=== PATIENT | female | born 1955 | race Caucasian/White ===

== ENCOUNTER → 2017-11-28 12:27 | Outpatient (CLI) | payer OTHER, SELFPAY ==
--- NOTE | 2017-11-28 12:32 | US_ITS ---
STUDY: THYROID ULTRASOUND REASON FOR EXAM: Female, 62 years old. Hyperthyroidism.. TECHNIQUE: Ultrasound evaluation of the thyroid was performed with real-time and static quiroga-scale imaging. COMPARISON: None. FINDINGS: RIGHT LOBE: Markedly abnormal right thyroid lobe. It measures 5.5 x 2.5 x 3.0 cm. It is heterogeneous. It appears to have a large calcified mass with prominent posterior shadowing. The mass itself measures approximately 4.4 x 3.4 x 2.9 cm. LEFT LOBE: The left lobe of the thyroid gland measures 3.4 x 1.1 x 1.1 cm. There is a homogeneous echotexture. There is a 4 mm lower pole cyst. ISTHMUS: The isthmus measures 5 mm . The regional lymph nodes are normal. US/Thyroid IMPRESSION: Large 4.4 cm calcified mass replacing most of the right thyroid lobe. Biopsy suggested. Electronically Signed: Mich Aj MD at 15:18 EDT , Service support ,
== END ==
DX: E03.9 Hypothyroidism, unspecified (principal)
CPT/HCPCS: 76536

== ENCOUNTER → 2017-12-16 13:24 | Outpatient (CLI) | payer OTHER, SELFPAY ==
--- NOTE | 2017-12-16 13:26 | BI_ITS ---
MAMMOGRAPHY - BILATERAL SCREENING REASON FOR EXAM: Female, 62 years old. Routine annual screening examination. PERTINENT HISTORY: Non-contributory. TECHNIQUE: Digital bilateral breast marvel (3D mammographic acquisition) in the CC and MLO projections. 2-D mediolateral oblique (MLO) and craniocaudad (CC) views of both breasts were obtained. CAD: Full Field Digital Mammography with Computer Added Detection was performed. COMPARISON: Comparison is made with prior study dated May 20, 2014 and May 15, 2013. FINDINGS: Breast Composition: There are scattered areas of fibroglandular density. There are no dominant masses or suspicious calcifications. No other significant abnormalities are identified. There has been no significant change since the prior study. BI/SCREENING MAMM (CAD), BILAT IMPRESSION: Stable bilateral screening mammogram. Yearly follow-up mammogram recommended. (A) ASSESSMENT CATEGORY: BIRADS Category 1: Negative. A letter regarding these results will be sent to the patient by the facility within 30 days. Approximately 10% of breast cancers are not detected by mammography. A normal mammogram should not delay biopsy of a clinically suspicious abnormality. [id number] Electronically Signed: Amol Connell MD at 12:58 EDT Tel [phone], Service support ,
== END ==
DX: Z12.31 Encounter for screening mammogram for malignant neoplasm of breast (principal)
CPT/HCPCS: 77063; 77067

== ENCOUNTER → 2019-10-19 09:43 | Outpatient (CLI) | payer OTHER, SELFPAY ==
[2019-10-19 10:38] LABS: Absolute Lymphocyte Count 2.62 X10^3/uL (0.83-4.51); Absolute Neutrophil Count 2.4 X10^3/uL (2.0-7.7); Basophil# 0.04 X10^3/uL; Basophil% 0.7 % (0-1); Eosinophil# 0.15 X10^3/uL; Eosinophils% 2.7 % (0-5); Hematocrit 38.8 % (37-47); Lymphocyte # 2.62 X10^3/ul (4.0); Lymphocyte % 46.5 % (19-41); Mean Corp Hgb Conc 33.5 g/dL (32-36); Mean Corpuscular Hgb 29.5 pg (27.0-32.0); Mean Corpuscular Volume 88.2 fL (81-99); Mean Platelet Vol. 9.6 fl (6.2-12.0); Monocyte# 0.38 X10^3/uL; Monocyte% 6.7 % (0-10); NRBC Flagged by Analyzer 0 % (0-5); Neutrophil # 2.38 X10^3/uL (2.7-7.7); Neutrophil % 42.3 % (47-70); Platelet Count 280 K/mm3 (150-450); RBC Distribution Width CV 12.7 % (11.6-14.6); RBC Distribution Width SD 41.1 fl (35.1-43.9); White Blood Count 5.6 K/mm3 (4.4-11.0)
[2019-10-19 11:12] LABS: AST(SGOT) 60 U/L (15-37); Alanine Aminotransfer ALT/SGPT 89 U/L (13-56); Albumin, Serum 3.7 g/dL (3.2-5.0); Alkaline Phosphatase 69 U/L (45-117); Anion Gap 3 (5-15); BUN 13 mg/dL (7-18); BUN/Creat Ratio 17.8 RATIO (10-20); Calcium,Total 9.4 mg/dL (8.5-10.1); Chloride 106 mmol/L (98-107); Cholesterol 183 mg/dL (200); Creatinine, Serum 0.73 mg/dL (0.55-1.02); EST Glomerular Filtration Rate 86 mL/min (>60); Est Glom Filt Rate - Afr Amer 104 mL/min (>60); Globulin 3.7 g/dL (2.2-4.2); Glucose 156 mg/dL (74-106); Hemoglobin A1c 9.2 % (3.8-5.6); High Density Lipoprotein 42 mg/dL; Protein, Total 7.4 g/dL (6.4-8.2); Sodium Level 139 mmol/L (136-145); T4 Free Direct 1.02 ng/dL (0.76-1.46); Thyroid Stim Hormone (TSH) 4.72 uIU/mL (0.358-3.74); Triglycerides 129 mg/dL; Very Low Density Lipoprotein 26 mg/dL (5-40); Vitamin D,25 Hydroxy 38.2 ng/mL
== END ==
DX: E11.65 Type 2 diabetes mellitus with hyperglycemia (principal); E78.5 Hyperlipidemia, unspecified; E03.9 Hypothyroidism, unspecified; E55.9 Vitamin D deficiency, unspecified; I10 Essential (primary) hypertension
CPT/HCPCS: 36415; 80053; 80061; 82306; 83036; 84439; 84443; 85025

== ENCOUNTER → 2020-01-08 10:15 | Outpatient (CLI) | payer OTHER, SELFPAY ==
[2020-01-08 10:44] LABS: Absolute Lymphocyte Count 2.32 X10^3/uL (0.83-4.51); Absolute Neutrophil Count 2.4 X10^3/uL (2.0-7.7); Basophil# 0.05 X10^3/uL; Eosinophil# 0.14 X10^3/uL; Eosinophils% 2.7 % (0-5); Hematocrit 38.8 % (37-47); Hemoglobin 13.1 g/dL (12.0-15.0); Lymphocyte # 2.32 X10^3/ul (4.0); Lymphocyte % 44.3 % (19-41); Mean Corp Hgb Conc 33.8 g/dL (32-36); Mean Corpuscular Hgb 29.6 pg (27.0-32.0); Mean Corpuscular Volume 87.8 fL (81-99); Mean Platelet Vol. 9.5 fl (6.2-12.0); Monocyte# 0.31 X10^3/uL; Monocyte% 5.9 % (0-10); NRBC Flagged by Analyzer 0 % (0-5); Neutrophil # 2.39 X10^3/uL (2.7-7.7); Neutrophil % 45.5 % (47-70); Platelet Count 259 K/mm3 (150-450); RBC Distribution Width CV 12.5 % (11.6-14.6); RBC Distribution Width SD 40.1 fl (35.1-43.9); Red Blood Count 4.42 M/mm3 (4.2-5.4); White Blood Count 5.2 K/mm3 (4.4-11.0)
[2020-01-08 11:08] LABS: Hemoglobin A1c 9.2 % (3.8-5.6)
[2020-01-08 11:23] LABS: AST(SGOT) 47 U/L (15-37); Alanine Aminotransfer ALT/SGPT 86 U/L (13-56); Albumin, Serum 3.7 g/dL (3.2-5.0); Alkaline Phosphatase 77 U/L (45-117); Anion Gap 3 (5-15); BUN 15 mg/dL (7-18); BUN/Creat Ratio 23.2 RATIO (10-20); Calcium,Total 9.6 mg/dL (8.5-10.1); Chloride 106 mmol/L (98-107); Cholesterol 165 mg/dL (200); Creatinine, Serum 0.65 mg/dL (0.55-1.02); EST Glomerular Filtration Rate 99 mL/min (>60); Est Glom Filt Rate - Afr Amer 119 mL/min (>60); Globulin 3.8 g/dL (2.2-4.2); Glucose 192 mg/dL (74-106); High Density Lipoprotein 45 mg/dL; Potassium 3.9 mmol/L (3.5-5.1); Protein, Total 7.5 g/dL (6.4-8.2); Sodium Level 140 mmol/L (136-145); T4 Free Direct 1.03 ng/dL (0.76-1.46); Thyroid Stim Hormone (TSH) 2.07 uIU/mL (0.358-3.74); Triglycerides 98 mg/dL; Very Low Density Lipoprotein 20 mg/dL (5-40)
== END ==
PROVIDERS: Family Medicine
DX: E11.65 Type 2 diabetes mellitus with hyperglycemia (principal); E78.5 Hyperlipidemia, unspecified; I10 Essential (primary) hypertension; E04.1 Nontoxic single thyroid nodule; E03.9 Hypothyroidism, unspecified
CPT/HCPCS: 36415; 80053; 80061; 83036; 84439; 84443; 85025

== ENCOUNTER 2020-02-18 14:16 | Inpatient (IN) | payer OTHER, SELFPAY ==
[2020-02-18] VITALS (8 sets, daily range): BP systolic 114–136; BP diastolic 65–78; PULSE 80–103; RESP 18–28; TEMP 36.6–36.7; O2SAT 88–97; BMI 30.3; BMI 27.0; BMI 27.1
--- NOTE | 2020-02-18 14:35 | EKG12_ITS ---
Test Reason : SOB Blood Pressure : / mmHG Vent. Rate : 096 BPM Atrial Rate : 096 BPM P-R Int : 148 ms QRS Dur : 128 ms QT Int : 390 ms P-R-T Axes : 047 017 001 degrees QTc Int : 492 ms Normal sinus rhythm Right bundle branch block Abnormal ECG Confirmed by RICO WARREN, SHIRLEY ([id number]), editor department DILLAN ESQUIVEL ([id number]) on 02/20/2020 10:48:58 AM Referred By: Rambo Holland Confirmed By:SHIRLEY GÓMEZ MD
--- NOTE | 2020-02-18 14:36 | ED.DCSUM_ITS ---
History of Present Illness Chief Complaint: Shortness of Breath Informant: Patient Onset: Days Context: Gradual Onset Timing: Continuous Current Severity: Moderate Maximum Severity: Severe Narrative: Patient is a 64-year-old female with history of smoking, never been diagnosed with COPD or asthma, also with diabetes and hypertension who presents to the emergency department with increasing shortness of breath. Patient states that she was tested for Covid a week ago. She received the results on the and she was positive. She states over the past 24 hours, she has had rather severe shortness of breath. She states she cannot walk any distance without getting acutely dyspneic. She has had fevers and chills. She is had a scant cough. She also admits to pleuritic chest pain. On arrival, the patient was 88% on room air. She was placed on 4 L of oxygen. When she ambulated to the bed, her saturations were in the low 80s and she was acutely dyspneic. Prior similar symptoms: Yes Recent Illness/Hospitalization: No Past Medical History - Allergies and Home Meds Allergies/Adverse Reactions: Allergies No Known Allergies Allergy (Unverified 12/12/17 09:20) [facility] - Prior records reviewed: Yes Past Medical History: - - Diabetes, hypertension Surgical History: noncontributory Lives: Alone Smoking Status: Former smoker Review of Systems General: Reports: Chills. Denies: Fever, Sweats Eyes: Denies: Visual changes - bilaterally, Diplopia ENT: Denies: Rhinorrhea, Sore throat Cardiovascular: Denies: Chest pain, Palpitations Respiratory: Reports: Dyspnea, Cough. Denies: Dyspnea on exertion Gastrointestinal: Denies: Abdominal pain, Nausea, Vomiting, Diarrhea, Melena, Hematochezia Genitourinary: Denies: Dysuria, Hematuria, Frequency Musculoskeletal: Denies: Back pain, Extremity Pain Skin: Denies: Rash, Wounds Neurological: Denies: Headache, Weakness, Numbness Physical Exam Vital Signs/Narrative: Vital Signs Temp Pulse Resp BP Pulse Ox 02/18/20 14:25 93 02/18/20 14:17 98.1 F 102 H 24 H 136/78 H 88 Inital Vital Signs reviewed: Yes General: Well nourished, Well developed, No Acute Distress Head: Normocephalic, Atraumatic Eyes: Perrl, EOMI ENT: Moist mucous membranes, No rhinorrhea Neck: Supple, Nontender Cardiovascular: Regular rate, Regular rhythm, No murmurs Respiratory: No distress, Chest nontender, Wheezing, Diminished Abdomen: Soft, Nontender, Nondistended, Normal bowel sounds Back: Nontender, Normal Inspection Extremities: Nontender, No edema Skin: Normal color, No rash Neurological: Alert, Oriented x3, Cranial nerves II-XII grossly intact, Normal Strength, Normal Sensation Psychological: Normal affect, Normal Mood Diagnostic/Tx/Re-eval Clinical Impression(s) from Imaging Studies Chest CTA 02/18/20 16:12 IMPRESSION: CTA chest examination, without a demonstrated pulmonary embolism or arterial dissection. Bilateral pneumonia. Electronically Signed: Edward Mays MD at 16:50 EST , Service support , Abnormal Lab Results 02/18/20 02/18/20 02/18/20 14:43 14:45 14:45 WBC 6.4 RBC 4.19 L Hgb 13.2 Hct 36.4 L MCV 86.9 MCH 31.5 MCHC 36.3 H RDW Std Deviation 39.4 RDW Coeff of Misty 12.8 Plt Count 317 MPV 9.4 Immature Gran % (Auto) 2.400 H Neut % (Auto) 62.2 Lymph % (Auto) 29.3 Shawnee % (Auto) 5.6 Eos % (Auto) 0.0 Baso % (Auto) 0.5 Absolute Neuts (auto) 4.0 Absolute Lymphs (auto) 1.87 Nucleated RBC % 0 Differential Comment SCANNED D-Dimer Quant (PE/DVT) 1.02 H* Sodium Potassium Chloride Carbon Dioxide Anion Gap BUN Creatinine Estim Creat Clear Calc Est GFR (MDRD) Af Amer Est GFR (MDRD) Non-Af BUN/Creatinine Ratio Glucose Lactic Acid 2.1 H* Calcium Total Bilirubin AST ALT Alkaline Phosphatase B-Natriuretic Peptide Total Protein Albumin Globulin Albumin/Globulin Ratio 02/18/20 02/18/20 14:45 Unknown WBC RBC Hgb Hct MCV MCH MCHC RDW Std Deviation RDW Coeff of Misty Plt Count MPV Immature Gran % (Auto) Neut % (Auto) Lymph % (Auto) Shawnee % (Auto) Eos % (Auto) Baso % (Auto) Absolute Neuts (auto) Absolute Lymphs (auto) Nucleated RBC % Differential Comment D-Dimer Quant (PE/DVT) Sodium 135 L Potassium 3.4 L Chloride 100 Carbon Dioxide 25.0 Anion Gap 10 BUN 14 Creatinine 0.71 Estim Creat Clear Calc 64.98 Est GFR (MDRD) Af Amer 108 Est GFR (MDRD) Non-Af 89 BUN/Creatinine Ratio 19.8 Glucose 206 H Lactic Acid Calcium 9.7 Total Bilirubin 0.60 AST 76 H ALT 64 H Alkaline Phosphatase 95 B-Natriuretic Peptide 7.2 Total Protein 8.0 Albumin 3.0 L Globulin 5.0 H Albumin/Globulin Ratio 0.6 L - Medical Decision Making Patient presents with significant shortness of breath. Even with ambulation, she was persistently hypoxic despite supplemental oxygen. Metabolic work-up was pursued. IV was established. Screening labs relatively unremarkable. She does have mild elevation of her lactic acid, which I feel is likely secondary to global hypoxia. D-dimer was elevated. Because of this, the patient underwent CTA of the chest. It does show findings consistent with Covid pneumonia, but there is no pulmonary embolus. Patient is on 5 L of oxygen. I do feel that she is going to require admission given her significant hypoxia. She is covered with Decadron. The patient will be discussed with the hospitalist. Impression 1. Covid pneumonia 2. Hypoxia requiring supplemental oxygen ED Disposition - Plan for ED Patient: [facility] -
[2020-02-18] MEDS: Acetaminophen 500 MG Tablet 1000 MG PO (15:15)
[2020-02-18 15:17] LABS: Absolute Lymphocyte Count 1.87 X10^3/uL (0.83-4.51); Basophil# 0.03 X10^3/uL; Basophil% 0.5 % (0-1); Hematocrit 36.4 % (37-47); Hemoglobin 13.2 g/dL (12.0-15.0); Lymphocyte # 1.87 X10^3/ul (4.0); Lymphocyte % 29.3 % (19-41); Mean Corp Hgb Conc 36.3 g/dL (32-36); Mean Corpuscular Hgb 31.5 pg (27.0-32.0); Mean Corpuscular Volume 86.9 fL (81-99); Mean Platelet Vol. 9.4 fl (6.2-12.0); Monocyte# 0.36 X10^3/uL; Monocyte% 5.6 % (0-10); NRBC Flagged by Analyzer 0 % (0-5); Neutrophil # 3.97 X10^3/uL (2.7-7.7); Neutrophil % 62.2 % (47-70); POSITIVE MORPHOLOGY YES; Platelet Count 317 K/mm3 (150-450); RBC Distribution Width CV 12.8 % (11.6-14.6); RBC Distribution Width SD 39.4 fl (35.1-43.9); Red Blood Count 4.19 M/mm3 (4.2-5.4); White Blood Count 6.4 K/mm3 (4.4-11.0)
[2020-02-18 15:30] LABS: Differential Indicated SCAN CRITERIA MET
[2020-02-18 15:34] LABS: ALB/GLOB Ratio 0.6 RATIO (0.9-2.4); AST(SGOT) 76 U/L (15-37); Alanine Aminotransfer ALT/SGPT 64 U/L (13-56); Alkaline Phosphatase 95 U/L (45-117); Anion Gap 10 (5-15); BUN 14 mg/dL (7-18); BUN/Creat Ratio 19.8 RATIO (10-20); Calcium,Total 9.7 mg/dL (8.5-10.1); Chloride 100 mmol/L (98-107); Creatinine, Serum 0.71 mg/dL (0.55-1.02); EST Glomerular Filtration Rate 89 mL/min (>60); Est Glom Filt Rate - Afr Amer 108 mL/min (>60); Estimated Creatinine Clearance 64.98 ml/min; Glucose 206 mg/dL (74-106); Potassium 3.4 mmol/L (3.5-5.1); Sodium Level 135 mmol/L (136-145)
[2020-02-18] MEDS: 0.9% Normal Saline 1,000 ML 125 ML IV (15:34)
[2020-02-18] MEDS: dexAMETHasone 4 MG/ML Vial 6 MG IV (15:34)
[2020-02-18 15:40] LABS: Lactic Acid 2.1 mmol/L (0.4-1.9)
[2020-02-18 15:47] LABS: Differential Comment SCANNED
[2020-02-18 15:49] LABS: D-Dimer Quantitative (DVT/PE) 1.02 FEU/ug/m (0.27-0.49)
[2020-02-18 16:03] LABS: BNP,B-Type NATRIURETIC PEPTIDE 7.2 pg/mL (0-100)
--- NOTE | 2020-02-18 16:12 | CT_ITS ---
STUDY: CTA CHEST REASON FOR EXAM: Female, 64 years old. COVID+, SOB, CP W/ COUGHING RADIATION DOSAGE (If Supplied By Facility): CTDIvol = ( 11.25 ) mGy, DLP = ( 393.16 ) mGycm TECHNIQUE: The examination was performed with the intravenous administration of 100mL Isovue-370. Post-processing of the angiographic images was performed, with multiplanar reformation and 3D reconstruction. Individualized dose optimization techniques were used for this CT. COMPARISON: None. FINDINGS: Thyroid gland is enlarged including with calcified nodules on the right. Normal enhancement of the main pulmonary artery and right and left pulmonary arteries. There is limited enhancement of the bilateral peripheral pulmonary arteries. There is no demonstrated pulmonary embolism. Normal thoracic aorta and visualized great vessels. There is no demonstrated aortic dissection. Normal heart and pericardium. Mediastinal lymph nodes measure up to 1.8 cm in the lower paratracheal region. There are calcified left hilar lymph nodes . Normal visualized trachea and bronchi. The lungs are well expanded. There are moderate groundglass and airspace opacities in the lower more than the mid and upper lungs. There is left lower lung granuloma Normal pleura. Normal chest wall structures. Mild degenerative change of the spine. Normal visualized upper abdomen. CT/CTA Chest W/WO Contrast IMPRESSION: CTA chest examination, without a demonstrated pulmonary embolism or arterial dissection. Bilateral pneumonia. Electronically Signed: Edward Mays MD at 16:50 EST , Service support ,
--- NOTE | 2020-02-18 18:29 | HP.PCM_ITS ---
Problem List (1) COVID-19 Status: Acute (2) Acute respiratory failure with hypoxia Status: Acute History of Present Illness Date of Admission: 02/18/20 Chief Complaint: short of breath The patient is a 64 year old F who started becoming ill on February 09. Patient was having shortness of breath and fever and dysgeusia. Patient was seen at an outside emergency room on the and checked for Covid at that time. Patient was told her lungs were clear at that time. Patient was not able to manage at home and presented to the emergency room. Patient was 88% on room air, she was placed on 5 L and her sats have been in the high 90s. In the emergency room, patient had a CAT scan of her chest that did not show any pulmonary embolism but did show bilateral patchy infiltrates throughout both lung larsen. She received albuterol and as well as 6 mg of dexamethasone. [] Past Medical History Medical History: Medical History (Last Reviewed 02/18/20 @ 18:[address] Rambo Holland, DO) Diabetes E11.9 Fatty liver K76.0 Hyperthyroidism E05.90 Allergies No Known Allergies Allergy (Unverified 12/12/17 09:20) Home Medications: Ambulatory Orders Medication Instructions Recorded meloxicam 15 mg tablet 15 mg PO DAILY 12/12/17 metformin 1,000 mg tablet 1,000 mg PO BID 12/12/17 Cyclobenzaprine HCl 10 mg PO TID PRN PRN 02/18/20 Insulin Detemir [Levemir Flextouch] 34 unit SQ QHS 02/18/20 Lisinopril [Zestril] 5 mg PO DAILY 02/18/20 Pantoprazole Sodium [Protonix] 20 mg PO DAILY PRN PRN 02/18/20 Sitagliptin Phosphate [Januvia] 100 mg PO DAILY 02/18/20 Surgical History: noncontributory Lives: Alone Smoking Status: Former smoker - *Family History Maternal History Items: - - no heart disease Review of Systems Constitutional: Reports: Chills, Fever, Malaise, Weakness. Denies: Weight Change Eyes: Denies: Blurred vision, Double vision HEENT: Denies: Head Aches, Sinus Congestion, Sinus Drainage Cardiovascular: Denies: Chest Pain, Palpitations Respiratory: Reports: Cough, Shortness of Breath, Shortness of breath upon exertion Gastrointestinal: Denies: Abdominal Pain, Nausea, Vomiting Genitourinary: Denies: Dysuria Musculoskeletal: Denies: Joint Pain, Joint Tenderness Skin: Denies: Rash, Wounds Neurological: Denies: Numbness, Tingling, Focal weakness Hematologic/ Lymphatic: Denies: Easy Bruising, Easy Bleeding, Hx of blood clot Comment: All review of systems were negative except as mentioned above in the history of present illness and the other review of systems. VTE Information - Inpt Only VTE Present on Admission: No VTE Mechan Device Prophylaxis: None VTE Pharm Prophylaxis ordered?: Yes - Physical Exam Vitals/I&O's: Vital Signs Temp Pulse Resp BP Pulse Ox 36.7 C 103 H 28 H 114/75 97 02/18/20 14:17 02/18/20 17:48 02/18/20 17:48 02/18/20 17:48 02/18/20 17:48 Oxygen Flow Rate (L/min) 5 Oxygen Delivery Method Nasal Cannula Weight: 67.086 kg Body Mass Index (BMI) 27.0 General: Alert, Cooperative, No apparent distress HEENT: Atraumatic, Normocephalic Oral: Moist Mucosa, No Gingival or Mucosal Lesions/ Ulcerations Neck: No Nodes, Thyroid Normal Size and Texture Lungs: Normal air movement, - - Bibasilar crackles Cardiovascular: Regular rate, Regular Rhythm, Normal S1, Normal S2, No murmurs Abdomen: Bowel Sounds Present, Soft, Non Tender, Non-Distended, No Hepato-splenomegaly Extremities: No edema, No Calf Tenderness Skin: No rashes, No breakdown Musculoskeletal: No Tenderness to Palpation of Joints or Extremities, No Muscle Wasting Psych/Mental Status: Appropriate, Flat Affect Laboratory Results 02/18/20 14:43: Lactic Acid 2.1 H* 02/18/20 14:45: WBC 6.4, RBC 4.19 L, Hgb 13.2, Hct 36.4 L, MCV 86.9, MCH 31.5, MCHC 36.3 H, RDW Std Deviation 39.4, RDW Coeff of Misty 12.8, Plt Count 317, MPV 9.4, Immature Gran % (Auto) 2.400 H, Neut % (Auto) 62.2, Lymph % (Auto) 29.3, Hale % (Auto) 5.6, Eos % (Auto) 0.0, Baso % (Auto) 0.5, Absolute Neuts (auto) 4.0, Absolute Lymphs (auto) 1.87, Nucleated RBC % 0, Differential Comment SCANNED 02/18/20 14:45: D-Dimer Quant (PE/DVT) 1.02 H* 02/18/20 14:45: Sodium 135 L, Potassium 3.4 L, Chloride 100, Carbon Dioxide 25.0, Anion Gap 10, BUN 14, Creatinine 0.71, Estim Creat Clear Calc 64.98, Est GFR (MDRD) Af Amer 108, Est GFR (MDRD) Non-Af 89, BUN/Creatinine Ratio 19.8, Glucose 206 H, Calcium 9.7, Total Bilirubin 0.60, AST 76 H, ALT 64 H, Alkaline Phosphatase 95, Total Protein 8.0, Albumin 3.0 L, Globulin 5.0 H, Albumin/Globulin Ratio 0.6 L 02/18/20 : B-Natriuretic Peptide 7.2 CAT scan of the chest reviewed and showed no pulmonary embolism and bilateral patchy infiltrates more confluent in the bases. Current Medications Sodium Chloride () 1,000 mls @ 125 mls/hr IV .Q8H SHIRLEY Last Admin: 02/18/20 15:34 Dose: 125 mls/hr Documented by: Sodium Chloride (0.9% Saline Lock 10 Ml Syringe) 10 - 40 ml IV UD PRN PRN Reason: SALINE FLUSH Assessment/Plan All Active Problems (Last Updated 12/12/17 @ 09:23 by Eleni Estrada) COVID-19 (Acute) Acute respiratory failure with hypoxia (Acute) 1. Acute COVID-19 pneumonia: * Symptoms began on 09 February * Treatment will be dexamethasone for 10days first dose was given today, the . Patient will also be on 5 days of remdesivir. * Consult infectious disease to see if the patient would be a candidate for convalescent plasma 2. Acute hypoxic respiratory failure * Patient was 88% on room air. Currently 97% on 5 L * Wean oxygen as tolerated * Patient may require home oxygen prior to discharge, if that is the case, check an ambulatory pulse ox. 3. Diabetes mellitus type 2 * Continue with basal insulin * Add sliding scale as it is anticipated the patient blood sugar go up with the dexamethasone. 4. VTE prophylaxis: High risk. Enoxaparin. 5. Advanced care planning: Discussed CPR and intubation with the patient. She is undecided at this time. I told the patient that she is she is undecided that I would recommend she be full CODE STATUS explained what that meant to her. She has no questions and she is aware that she can change her CODE STATUS at any point during this hospitalization. Inpatient E&M: [id number] Init Hosp L2
[2020-02-18 19:05] LABS: Reflex Lactate? Y
[2020-02-18 19:08] LABS: Alkaline Phosphatase 93 U/L (45-117); LDH 397 U/L (84-246)
[2020-02-18 19:15] LABS: Prothrombin Time (Protime)PT. 12.5 SECONDS (11.7-14.9)
[2020-02-18 19:20] LABS: Fibrinogen 770 mg/dl (203-444)
[2020-02-18 20:55] LABS: Lactic Acid 1.9 mmol/L (0.4-1.9)
[2020-02-18] MEDS: Glucerna Shake 120 ML LIQUID PO (22:08)
[2020-02-18] MEDS: Enoxaparin 30 MG/0.3 ML Syringe SC (22:10)
[2020-02-18 22:30] LABS: Bedside Glucose 309 mg/dL (70-110)
[2020-02-19] VITALS (14 sets, daily range): BP systolic 117–150; BP diastolic 69–94; PULSE 66–94; RESP 16–28; TEMP 36.4–37.1; O2SAT 85–96
[2020-02-19 05:48] LABS: Absolute Lymphocyte Count 1.16 X10^3/uL (0.83-4.51); Basophil# 0.03 X10^3/uL; Basophil% 0.7 % (0-1); Hematocrit 36.3 % (37-47); Hemoglobin 12.6 g/dL (12.0-15.0); Lymphocyte # 1.16 X10^3/ul (4.0); Lymphocyte % 25.2 % (19-41); Mean Corp Hgb Conc 34.7 g/dL (32-36); Mean Corpuscular Hgb 29.7 pg (27.0-32.0); Mean Corpuscular Volume 85.6 fL (81-99); Mean Platelet Vol. 9.3 fl (6.2-12.0); Monocyte# 0.21 X10^3/uL; Monocyte% 4.6 % (0-10); NRBC Flagged by Analyzer 0 % (0-5); Neutrophil # 3.01 X10^3/uL (2.7-7.7); Neutrophil % 65.4 % (47-70); POSITIVE MORPHOLOGY YES; Platelet Count 366 K/mm3 (150-450); RBC Distribution Width CV 12.4 % (11.6-14.6); RBC Distribution Width SD 38.5 fl (35.1-43.9); Red Blood Count 4.24 M/mm3 (4.2-5.4); White Blood Count 4.6 K/mm3 (4.4-11.0)
[2020-02-19 05:52] LABS: Differential Indicated SCAN CRITERIA MET
[2020-02-19 06:06] LABS: ALB/GLOB Ratio 0.5 RATIO (0.9-2.4); AST(SGOT) 53 U/L (15-37); Alanine Aminotransfer ALT/SGPT 57 U/L (13-56); Albumin, Serum 2.6 g/dL (3.2-5.0); Alkaline Phosphatase 81 U/L (45-117); Anion Gap 11 (5-15); BUN 18 mg/dL (7-18); BUN/Creat Ratio 30.2 RATIO (10-20); Calcium,Total 9.2 mg/dL (8.5-10.1); Chloride 103 mmol/L (98-107); EST Glomerular Filtration Rate 108 mL/min (>60); Est Glom Filt Rate - Afr Amer 131 mL/min (>60); Estimated Creatinine Clearance 76.89 ml/min; Globulin 4.8 g/dL (2.2-4.2); Glucose 347 mg/dL (74-106); Potassium 3.8 mmol/L (3.5-5.1); Protein, Total 7.4 g/dL (6.4-8.2); Sodium Level 136 mmol/L (136-145)
[2020-02-19 06:33] LABS: Atypical Lymphocyte 2+ %; Differential Comment SCANNED
[2020-02-19] MEDS: Insulin Lispro 100 UNIT/ML INSULN.PEN SC ×4 (06:45→22:18)
[2020-02-19 06:50] LABS: Bedside Glucose 323 mg/dL (70-110)
[2020-02-19] MEDS: Meloxicam 15 MG Tablet PO (09:00)
[2020-02-19] MEDS: LINAGLIPTIN 5 MG TABLET PO (09:00)
[2020-02-19] MEDS: Lisinopril 5 MG Tablet PO (09:00)
[2020-02-19] MEDS: dexAMETHasone 4 MG Tablet 6 MG PO (09:01)
[2020-02-19] MEDS: Enoxaparin 30 MG/0.3 ML Syringe SC ×2 (09:02→22:18)
[2020-02-19] MEDS: Glucerna Shake 120 ML LIQUID PO (09:02)
--- NOTE | 2020-02-19 11:11 | CON.PCM_ITS ---
Problem List (1) COVID-19 Status: Acute Reason for Consult: covid Consulted by: Dr. Holland History of Present Illness: The patient is a 64 year old F with sx starting 02/08 with cough, chest pain, diarrhea, aches, and change in taste. Went to [place] ED, covid (+) 02/10. With worsening sx, came to ED here yesterday, admitted on remdesivir, lovenox, and dex. Grandson got sick first, not tested. at home feeling fine, in quarantine. Not tested. Full ROS performed and neg except as noted above. - Medical History Surgical History: reviewed Allergies/Adverse Reactions: Allergies No Known Allergies Allergy (Unverified 12/12/17 09:20) Home Medications: Ambulatory Orders Medication Instructions Recorded meloxicam 15 mg tablet 15 mg PO DAILY 12/12/17 metformin 1,000 mg tablet 1,000 mg PO BID 12/12/17 Cyclobenzaprine HCl 10 mg PO TID PRN PRN 02/18/20 Insulin Detemir [Levemir Flextouch] 34 unit SQ QHS 02/18/20 Lisinopril [Zestril] 5 mg PO DAILY 02/18/20 Pantoprazole Sodium [Protonix] 20 mg PO DAILY PRN PRN 02/18/20 Sitagliptin Phosphate [Januvia] 100 mg PO DAILY 02/18/20 - Social History SMOKING STATUS:: Former smoker Vital Signs Temp Pulse Resp BP Pulse Ox 97.7 F L 84 18 129/69 H 93 02/19/20 09:03 02/19/20 09:03 02/19/20 09:03 02/19/20 09:03 02/19/20 09:56 Oxygen Flow Rate (L/min) 15 Oxygen Delivery Method Nasal Cannula Weight: 67.086 kg Body Mass Index (BMI) 27.0 Laboratory Tests Past 24 Hrs 02/18/20 02/18/20 02/18/20 14:43 14:45 14:45 WBC 6.4 RBC 4.19 L Hgb 13.2 Hct 36.4 L MCV 86.9 MCH 31.5 MCHC 36.3 H RDW Std Deviation 39.4 RDW Coeff of Misty 12.8 Plt Count 317 MPV 9.4 Immature Gran % (Auto) 2.400 H Neut % (Auto) 62.2 Lymph % (Auto) 29.3 Coleman % (Auto) 5.6 Eos % (Auto) 0.0 Baso % (Auto) 0.5 Absolute Neuts (auto) 4.0 Absolute Lymphs (auto) 1.87 Nucleated RBC % 0 Differential Comment SCANNED Atypical Lymphocytes PT INR Fibrinogen D-Dimer Quant (PE/DVT) 1.02 H* Sodium Potassium Chloride Carbon Dioxide Anion Gap BUN Creatinine Estim Creat Clear Calc Est GFR (MDRD) Af Amer Est GFR (MDRD) Non-Af BUN/Creatinine Ratio Glucose Lactic Acid 2.1 H* Calcium Total Bilirubin AST ALT Alkaline Phosphatase Lactate Dehydrogenase C-React Prot Ext Range B-Natriuretic Peptide Total Protein Albumin Globulin Albumin/Globulin Ratio 02/18/20 02/18/20 02/18/20 14:45 14:45 14:45 WBC RBC Hgb Hct MCV MCH MCHC RDW Std Deviation RDW Coeff of Misty Plt Count MPV Immature Gran % (Auto) Neut % (Auto) Lymph % (Auto) Coleman % (Auto) Eos % (Auto) Baso % (Auto) Absolute Neuts (auto) Absolute Lymphs (auto) Nucleated RBC % Differential Comment Atypical Lymphocytes PT 12.5 INR 1.0 Fibrinogen 770 H D-Dimer Quant (PE/DVT) Sodium 135 L Potassium 3.4 L Chloride 100 Carbon Dioxide 25.0 Anion Gap 10 BUN 14 Creatinine 0.71 Estim Creat Clear Calc 64.98 Est GFR (MDRD) Af Amer 108 Est GFR (MDRD) Non-Af 89 BUN/Creatinine Ratio 19.8 Glucose 206 H Lactic Acid Calcium 9.7 Total Bilirubin 0.60 AST 76 H ALT 64 H Alkaline Phosphatase 95 93 Lactate Dehydrogenase 397 H C-React Prot Ext Range 66.80 H B-Natriuretic Peptide Total Protein 8.0 Albumin 3.0 L Globulin 5.0 H Albumin/Globulin Ratio 0.6 L 02/18/20 02/18/20 02/19/20 20:00 Unknown 05:18 WBC RBC Hgb Hct MCV MCH MCHC RDW Std Deviation RDW Coeff of Misty Plt Count MPV Immature Gran % (Auto) Neut % (Auto) Lymph % (Auto) Coleman % (Auto) Eos % (Auto) Baso % (Auto) Absolute Neuts (auto) Absolute Lymphs (auto) Nucleated RBC % Differential Comment Atypical Lymphocytes PT INR Fibrinogen D-Dimer Quant (PE/DVT) Sodium 136 Potassium 3.8 Chloride 103 Carbon Dioxide 22.0 Anion Gap 11 BUN 18 Creatinine 0.60 Estim Creat Clear Calc 76.89 Est GFR (MDRD) Af Amer 131 Est GFR (MDRD) Non-Af 108 BUN/Creatinine Ratio 30.2 H Glucose 347 H Lactic Acid 1.9 Calcium 9.2 Total Bilirubin 0.40 AST 53 H ALT 57 H Alkaline Phosphatase 81 Lactate Dehydrogenase C-React Prot Ext Range B-Natriuretic Peptide 7.2 Total Protein 7.4 Albumin 2.6 L Globulin 4.8 H Albumin/Globulin Ratio 0.5 L 02/19/20 05:18 WBC 4.6 RBC 4.24 Hgb 12.6 Hct 36.3 L MCV 85.6 MCH 29.7 MCHC 34.7 RDW Std Deviation 38.5 RDW Coeff of Misty 12.4 Plt Count 366 MPV 9.3 Immature Gran % (Auto) 4.100 H Neut % (Auto) 65.4 Lymph % (Auto) 25.2 Coleman % (Auto) 4.6 Eos % (Auto) 0.0 Baso % (Auto) 0.7 Absolute Neuts (auto) 3.0 Absolute Lymphs (auto) 1.16 Nucleated RBC % 0 Differential Comment SCANNED Atypical Lymphocytes 2+ PT INR Fibrinogen D-Dimer Quant (PE/DVT) Sodium Potassium Chloride Carbon Dioxide Anion Gap BUN Creatinine Estim Creat Clear Calc Est GFR (MDRD) Af Amer Est GFR (MDRD) Non-Af BUN/Creatinine Ratio Glucose Lactic Acid Calcium Total Bilirubin AST ALT Alkaline Phosphatase Lactate Dehydrogenase C-React Prot Ext Range B-Natriuretic Peptide Total Protein Albumin Globulin Albumin/Globulin Ratio - Other Studies Radiology: [] reviewed Other Studies: [] Route of nutrition/ use of supplements: [] Nutritional Intake: [] IV Site: [] Ferro Catheter: [] - Physical Exam General: Alert, Oriented x3, Cooperative, No apparent distress HEENT: Atraumatic, PERRLA, EOMI Neck: Supple, No Nodes Lungs: Diminished Cardiovascular: Regular rate, Regular Rhythm Abdomen: Soft, Non Tender, Non-Distended Extremities: No edema Skin: No rashes IV Site: Peripheral, without redness Musculoskeletal: No Tenderness to Palpation of Joints or Extremities Neurological: Cranial nerves II-XII grossly intact - Assessment/Plan Antibiotics: [] Assessment/Plan: [] Active and Suspected Problems (Last Reviewed 02/18/20 @ 18:[address] Rambo Holland, DO) COVID-19 (Acute) Acute respiratory failure with hypoxia (Acute) covid with hypoxia - sx started around 02/08, tested (+) 02/10, reviewed [facility] records. Cont remdesivir and dex. CT neg for PE. D-dimer was 1 here. Lactate was 2.1. Will follow, thank you
[2020-02-19 11:40] LABS: Bedside Glucose 307 mg/dL (70-110)
--- NOTE | 2020-02-19 13:05 | CASEMGMT ---
RN CM Assessment Note Introduced role of CM to patient. She is on AIRVO and does not wish to speak. Is agreeable to have me call her . Demographics, PCP verified. Intro role of CM to . He states patient was very independent prior to being ill with covid-19. No care needs and no assistance at home. states he is able to assist with any needs on dc. He is currently asymptomatic and has not been tested. He is quarantined and has people bring groceries to home. COVID TESTIN02/11/20 [place] ED Presentation: shortness of breath. Diagnosis: COVID 19 PCP: [facility]- verified with Specialists: Dr. Diego Copeland, endocrinology [facility]erred [facility]acy: [facility] Prescription Benefit: yes LNOK: , Fam [place] Living Arrangements: Lives independently at home Tranportation: drives DME: none. If home oxygen is needed, In Network for [facility]: [facility] HHC: none SNF: none Patient DC Goals: home DC Plan: home on discharge CM available for discharge planning coordination. Contact CM for any concerns/needs that may arise. Abhay CARTWRIGHT RN ACM
[2020-02-19 16:10] LABS: Bedside Glucose 398 mg/dL (70-110)
--- NOTE | 2020-02-19 19:55 | PCM.PN.HOSP ---
Patient Problems: Active and Suspected Problems (Last Reviewed 02/18/20 @ 18:[address] Rambo Holland, DO) COVID-19 (Acute) Acute respiratory failure with hypoxia (Acute) Subjective: Feels better with the Airvo in place though may need to add BiPAP at night Vitals/I&O's: Vital Signs Temp Pulse Resp BP Pulse Ox 97.6 F L 84 28 H 132/74 H 94 02/19/20 16:04 02/19/20 18:00 02/19/20 18:00 02/19/20 16:04 02/19/20 18:00 Oxygen Flow Rate (L/min) 60 Oxygen Delivery Method Airvo Weight: 147 lb 14.389 oz Body Mass Index (BMI) 27.0 Intake and Output for Last 24 Hours 02/17/20 02/18/20 02/19/20 23:59 23:59 23:59 Intake Total 2149 Balance 2149 General: Alert, Oriented x3, Cooperative, No apparent distress HEENT: Atraumatic, PERRLA, EOMI, Normocephalic Oral: Moist Mucosa Neck: Supple, No JVD Lungs: Normal air movement, No rhonchi, No wheeze, No rales, Diminished Cardiovascular: Regular rate, Regular Rhythm, Normal S1, Normal S2, No murmurs Abdomen: Soft, Non Tender, Non-Distended, No Hepato-splenomegaly Extremities: No edema, Capillary Refill Less than 3 Seconds Skin: No rashes, No breakdown Neurological: Neuro grossly intact, Sensory exam intact to light touch and pain Psych/Mental Status: Normal Affect, Appropriate Laboratory Results 02/18/20 20:00: Lactic Acid 1.9 02/18/20 21:58: POC Glucose 309 H 02/19/20 05:18: Sodium 136, Potassium 3.8, Chloride 103, Carbon Dioxide 22.0, Anion Gap 11, BUN 18, Creatinine 0.60, Estim Creat Clear Calc 76.89, Est GFR (MDRD) Af Amer 131, Est GFR (MDRD) Non-Af 108, BUN/Creatinine Ratio 30.2 H, Glucose 347 H, Calcium 9.2, Total Bilirubin 0.40, AST 53 H, ALT 57 H, Alkaline Phosphatase 81, Total Protein 7.4, Albumin 2.6 L, Globulin 4.8 H, Albumin/Globulin Ratio 0.5 L 02/19/20 05:18: WBC 4.6, RBC 4.24, Hgb 12.6, Hct 36.3 L, MCV 85.6, MCH 29.7, MCHC 34.7, RDW Std Deviation 38.5, RDW Coeff of Misty 12.4, Plt Count 366, MPV 9.3, Immature Gran % (Auto) 4.100 H, Neut % (Auto) 65.4, Lymph % (Auto) 25.2, Jenkins % (Auto) 4.6, Eos % (Auto) 0.0, Baso % (Auto) 0.7, Absolute Neuts (auto) 3.0, Absolute Lymphs (auto) 1.16, Nucleated RBC % 0, Differential Comment SCANNED, Atypical Lymphocytes 2+ 02/19/20 06:42: POC Glucose 323 H 02/19/20 11:10: POC Glucose 307 H 02/19/20 15:59: POC Glucose 398 H Current Medications Acetaminophen (Acetaminophen 325 Mg Tablet) 650 mg PO Q6H PRN PRN PRN Reason: Pain Score 1-10/Temp > 100.7 F Cyclobenzaprine HCl (Cyclobenzaprine Hcl 10 Mg Tablet) 10 mg PO TID PRN PRN PRN Reason: SPASMS Dexamethasone (Dexamethasone 4 Mg Tablet) 6 mg PO DAILY [facility] Stop: 02/27/20 10:01 Last Admin: 02/19/20 09:01 Dose: 6 mg Documented by: Dextrose (Dextrose 50%-Water 25 Gm/50 Ml Disp.Syrin) 0 gm IV X1 PRN; Protocol PRN Reason: Hypoglycemia Enoxaparin Sodium (Enoxaparin 30 Mg/0.3 Ml Syringe) 30 mg SC BID [facility] Last Admin: 02/19/20 09:02 Dose: 30 mg Documented by: Glucagon (Glucagon 1 Mg/Ml Syringe) 1 mg IM .X1 PRN PRN Reason: Hypoglycemia Guaifenesin (Guaifenesin 10 Ml Udc (200mg/10ml)) 20 ml PO Q4H PRN PRN PRN Reason: COUGH Remdesivir 100 mg/ Sodium (Chloride) 250 mls @ 125 mls/hr IV DAILY [facility] Stop: 02/22/20 11:59 Last Infusion: 02/19/20 12:35 Dose: Infused Documented by: Insulin Glargine (Insulin Glargine 100 Units/Ml Pen) 34 units SC QHS [facility] Last Admin: 02/19/20 00:09 Dose: 34 u Documented by: Insulin Human Lispro (Insulin Lispro 100 Unit/Ml Insuln.Pen) 0 unit SC TIDAC [facility]; Protocol Last Admin: 02/19/20 16:02 Dose: 6 u Documented by: Linagliptin (Linagliptin 5 Mg Tablet) 5 mg PO DAILY [facility] Last Admin: 02/19/20 09:00 Dose: 5 mg Documented by: Lisinopril (Lisinopril 5 Mg Tablet) 5 mg PO DAILY [facility] Last Admin: 02/19/20 09:00 Dose: 5 mg Documented by: Meloxicam (Meloxicam 15 Mg Tablet) 15 mg PO DAILY [facility] Last Admin: 02/19/20 09:00 Dose: 15 mg Documented by: Ondansetron HCl (Ondansetron 4 Mg/2 Ml Vial) 4 mg IV Q8H PRN PRN PRN Reason: NAUSEA/VOMITING Pantoprazole Sodium (Pantoprazole Sodium 20 Mg Tablet) 20 mg PO DAILY PRN PRN PRN Reason: gerd Throat Lozenges (Benzocaine/Menthol 1 Lozenge) 1 lozenge MUCOUS MEM Q2H PRN PRN PRN Reason: SORE THROAT STROKE Vital Signs/Narrative: Vital Signs Temp Pulse Resp BP Pulse Ox 02/19/20 18:00 84 28 H 94 02/19/20 16:04 97.6 F L 89 16 132/74 H 95 Medical Necessity - Tobacco Use Smoking Status: Former smoker Tobacco Use: Cigarettes Assessment/Plan All Active Problems (Last Reviewed 02/18/20 @ 18:[address] Rambo Holland, DO) COVID-19 (Acute) Acute respiratory failure with hypoxia (Acute) 1. Acute hypoxic respiratory failure secondary to COVID-19 pneumonia -Started on February 09 and she needed 5 L nasal cannula on admission even though she does not wear oxygen at home at baseline -Throughout the day she had increasing oxygen requirements and was placed on air Vo -Continue with remdesivir and Decadron -BNP on admission was 7 however she did receive IV fluids there is a component of interstitial edema and a lot of Covid patients so if we cannot recruit lung tissue with BiPAP overnight may need to diurese 2. DM 2 -We will continue with her home insulin as well as a sliding scale insulin -Accu-Cheks AC at bedtime -We will make insulin adjustments secondary to her Decadron usage 3. GERD -Stable -Continue with PPI DVT: Lovenox Inpatient E&M: 39683 Subs Hosp L2
--- NOTE | 2020-02-19 20:39 | CPS ---
tried pt on bipap of / and 80% --pt did not lisette at all- put pt back on airvo lisette well
[2020-02-19 22:31] LABS: Bedside Glucose 383 mg/dL (70-110)
[2020-02-20] VITALS (9 sets, daily range): BP systolic 113–157; BP diastolic 61–71; PULSE 58–77; RESP 16–22; TEMP 35.3–36.6; O2SAT 90–97
[2020-02-20 07:00] LABS: Absolute Lymphocyte Count 1.59 X10^3/uL (0.83-4.51); Absolute Neutrophil Count 8.5 X10^3/uL (2.0-7.7); Basophil# 0.01 X10^3/uL; Basophil% 0.1 % (0-1); Hematocrit 34.6 % (37-47); Lymphocyte # 1.59 X10^3/ul (4.0); Lymphocyte % 14.5 % (19-41); Mean Corp Hgb Conc 34.7 g/dL (32-36); Mean Corpuscular Hgb 29.2 pg (27.0-32.0); Mean Corpuscular Volume 84.2 fL (81-99); Mean Platelet Vol. 9.2 fl (6.2-12.0); Monocyte# 0.55 X10^3/uL; NRBC Flagged by Analyzer 0 % (0-5); Neutrophil # 8.51 X10^3/uL (2.7-7.7); Neutrophil % 77.8 % (47-70); Platelet Count 436 K/mm3 (150-450); RBC Distribution Width CV 12.4 % (11.6-14.6); Red Blood Count 4.11 M/mm3 (4.2-5.4); White Blood Count 10.9 K/mm3 (4.4-11.0)
[2020-02-20 07:33] LABS: ALB/GLOB Ratio 0.7 RATIO (0.9-2.4); AST(SGOT) 47 U/L (15-37); Alanine Aminotransfer ALT/SGPT 58 U/L (13-56); Albumin, Serum 2.6 g/dL (3.2-5.0); Alkaline Phosphatase 83 U/L (45-117); Anion Gap 8 (5-15); BUN 20 mg/dL (7-18); BUN/Creat Ratio 39.1 RATIO (10-20); Calcium,Total 9.2 mg/dL (8.5-10.1); Chloride 104 mmol/L (98-107); Creatinine, Serum 0.51 mg/dL (0.55-1.02); EST Glomerular Filtration Rate 129 mL/min (>60); Est Glom Filt Rate - Afr Amer 156 mL/min (>60); Estimated Creatinine Clearance 90.46 ml/min; Globulin 3.8 g/dL (2.2-4.2); Glucose 310 mg/dL (74-106); Potassium 3.8 mmol/L (3.5-5.1); Protein, Total 6.4 g/dL (6.4-8.2); Sodium Level 137 mmol/L (136-145)
[2020-02-20] MEDS: Insulin Lispro 100 UNIT/ML INSULN.PEN SC ×4 (08:55→21:34)
[2020-02-20] MEDS: Insulin Lispro 100 UNIT/ML INSULN.PEN 10 UNIT SC ×2 (08:55→12:32)
[2020-02-20] MEDS: dexAMETHasone 4 MG Tablet 6 MG PO (08:58)
[2020-02-20] MEDS: Meloxicam 15 MG Tablet PO (08:58)
[2020-02-20] MEDS: Enoxaparin 30 MG/0.3 ML Syringe SC ×2 (08:59→21:28)
[2020-02-20] MEDS: LINAGLIPTIN 5 MG TABLET PO (08:59)
[2020-02-20] MEDS: Lisinopril 5 MG Tablet PO (08:59)
[2020-02-20 09:10] LABS: Bedside Glucose 302 mg/dL (70-110)
--- NOTE | 2020-02-20 10:16 | PCM.PN.HOSP ---
Patient Problems: Active and Suspected Problems (Last Reviewed 02/18/20 @ 18:[address] Rambo Holland, DO) COVID-19 (Acute) Acute respiratory failure with hypoxia (Acute) Subjective: Still on Airvo, I did ask her to go on BiPAP it does not appear that she wanted to wear that overnight Vitals/I&O's: Vital Signs Temp Pulse Resp BP Pulse Ox 97.6 F L 60 18 131/61 H 96 02/20/20 08:52 02/20/20 08:52 02/20/20 08:52 02/20/20 08:52 02/20/20 08:52 Oxygen Flow Rate (L/min) 55 Oxygen Delivery Method Airvo Weight: 147 lb 14.389 oz Body Mass Index (BMI) 27.0 Intake and Output for Last 24 Hours 02/18/20 02/19/20 02/20/20 23:59 23:59 23:59 Intake Total 2150 / 2150 80 / 80 Output Total 200 / 200 Balance 2150 / 2150 -120 / -120 General: Alert, Oriented x3, Cooperative, No apparent distress HEENT: Atraumatic, PERRLA, EOMI, Normocephalic Oral: Moist Mucosa Neck: Supple, No JVD Lungs: Normal air movement, No rhonchi, No wheeze, rales, Diminished Cardiovascular: Regular rate, Regular Rhythm, Normal S1, Normal S2, No murmurs Abdomen: Soft, Non Tender, Non-Distended, No Hepato-splenomegaly Extremities: No edema, Capillary Refill Less than 3 Seconds Skin: No rashes, No breakdown Neurological: Neuro grossly intact, Sensory exam intact to light touch and pain Psych/Mental Status: Normal Affect, Appropriate Laboratory Results 02/19/20 11:10: POC Glucose 307 H 02/19/20 15:59: POC Glucose 398 H 02/19/20 22:17: POC Glucose 383 H 02/20/20 06:29: WBC 10.9, RBC 4.11 L, Hgb 12.0, Hct 34.6 L, MCV 84.2, MCH 29.2, MCHC 34.7, RDW Std Deviation 38.0, RDW Coeff of Misty 12.4, Plt Count 436, MPV 9.2, Immature Gran % (Auto) 2.600 H, Neut % (Auto) 77.8 H, Lymph % (Auto) 14.5 L, [place] % (Auto) 5.0, Eos % (Auto) 0.0, Baso % (Auto) 0.1, Absolute Neuts (auto) 8.5 H, Absolute Lymphs (auto) 1.59, Nucleated RBC % 0 02/20/20 06:29: Sodium 137, Potassium 3.8, Chloride 104, Carbon Dioxide 25.0, Anion Gap 8, BUN 20 H, Creatinine 0.51 L, Estim Creat Clear Calc 90.46, Est GFR (MDRD) Af Amer 156, Est GFR (MDRD) Non-Af 129, BUN/Creatinine Ratio 39.1 H, Glucose 310 H, Calcium 9.2, Total Bilirubin 0.40, AST 47 H, ALT 58 H, Alkaline Phosphatase 83, Total Protein 6.4, Albumin 2.6 L, Globulin 3.8, Albumin/Globulin Ratio 0.7 L 02/20/20 08:49: POC Glucose 302 H Current Medications Acetaminophen (Acetaminophen 325 Mg Tablet) 650 mg PO Q6H PRN PRN PRN Reason: Pain Score 1-10/Temp > 100.7 F Cyclobenzaprine HCl (Cyclobenzaprine Hcl 10 Mg Tablet) 10 mg PO TID PRN PRN PRN Reason: SPASMS Dexamethasone (Dexamethasone 4 Mg Tablet) 6 mg PO DAILY [facility] Stop: 02/27/20 10:01 Last Admin: 02/20/20 08:58 Dose: 6 mg Documented by: Dextrose (Dextrose 50%-Water 25 Gm/50 Ml Disp.Syrin) 0 gm IV X1 PRN; Protocol PRN Reason: Hypoglycemia Enoxaparin Sodium (Enoxaparin 30 Mg/0.3 Ml Syringe) 30 mg SC BID [facility] Last Admin: 02/20/20 08:59 Dose: 30 mg Documented by: Glucagon (Glucagon 1 Mg/Ml Syringe) 1 mg IM .X1 PRN PRN Reason: Hypoglycemia Guaifenesin (Guaifenesin 10 Ml Udc (200mg/10ml)) 20 ml PO Q4H PRN PRN PRN Reason: COUGH Remdesivir 100 mg/ Sodium (Chloride) 250 mls @ 125 mls/hr IV DAILY [facility] Stop: 02/22/20 11:59 Last Infusion: 02/19/20 12:35 Dose: Infused Documented by: Insulin Glargine (Insulin Glargine 100 Units/Ml Pen) 50 units SC QHS [facility] Last Admin: 02/19/20 22:20 Dose: 50 u Documented by: Insulin Human Lispro (Insulin Lispro 100 Unit/Ml Insuln.Pen) 0 unit SC ACHS [facility]; Protocol Last Admin: 02/20/20 08:55 Dose: 6 u Documented by: Insulin Human Lispro (Insulin Lispro 100 Unit/Ml Insuln.Pen) 10 unit SC TIDAC [facility] Last Admin: 02/20/20 08:55 Dose: 10 u Documented by: Linagliptin (Linagliptin 5 Mg Tablet) 5 mg PO DAILY [facility] Last Admin: 02/20/20 08:59 Dose: 5 mg Documented by: Lisinopril (Lisinopril 5 Mg Tablet) 5 mg PO DAILY [facility] Last Admin: 02/20/20 08:59 Dose: 5 mg Documented by: Meloxicam (Meloxicam 15 Mg Tablet) 15 mg PO DAILY [facility] Last Admin: 02/20/20 08:58 Dose: 15 mg Documented by: Ondansetron HCl (Ondansetron 4 Mg/2 Ml Vial) 4 mg IV Q8H PRN PRN PRN Reason: NAUSEA/VOMITING Pantoprazole Sodium (Pantoprazole Sodium 20 Mg Tablet) 20 mg PO DAILY PRN PRN PRN Reason: gerd Throat Lozenges (Benzocaine/Menthol 1 Lozenge) 1 lozenge MUCOUS MEM Q2H PRN PRN PRN Reason: SORE THROAT STROKE Vital Signs/Narrative: Vital Signs Temp Pulse Resp BP Pulse Ox 02/20/20 08:52 97.6 F L 60 18 131/61 H 96 Medical Necessity - Tobacco Use Smoking Status: Former smoker Tobacco Use: Cigarettes Assessment/Plan All Active Problems (Last Reviewed 02/18/20 @ 18:[address] Rambo Holland, DO) COVID-19 (Acute) Acute respiratory failure with hypoxia (Acute) 1. Acute hypoxic respiratory failure secondary to COVID-19 pneumonia -Started on February 09 and she needed 5 L nasal cannula on admission even though she does not wear oxygen at home at baseline -Throughout the day she had increasing oxygen requirements and was placed on air Vo -Continue with remdesivir and Decadron -Despite the BNP of 7 on admission, she does have some rales therefore we will give her a dose of Lasix tonight and see if this helps with her respiratory status 2. DM 2 -We will continue with her home insulin as well as a sliding scale insulin -Accu-Cheks AC at bedtime -We will make insulin adjustments secondary to her Decadron usage 3. GERD -Stable -Continue with PPI DVT: Lovenox Inpatient E&M: 62730 Subs Hosp L2
[2020-02-20] MEDS: 0.9% Saline Lock 10 ML Syringe IV ×2 (11:30→17:37)
[2020-02-20 12:41] LABS: Bedside Glucose 329 mg/dL (70-110)
--- NOTE | 2020-02-20 16:17 | PN.ID_ITS ---
Patient Problems: Active and Suspected Problems (Last Reviewed 02/18/20 @ 18:[address] Rambo Holland, DO) COVID-19 (Acute) Acute respiratory failure with hypoxia (Acute) Subjective: Feeling better, no fever, less dyspnea - Physical Exam Vitals/I&O's: Vital Signs Temp Pulse Resp BP Pulse Ox 97.8 F 58 L 18 114/61 95 02/20/20 15:59 02/20/20 15:59 02/20/20 15:59 02/20/20 15:59 02/20/20 15:59 Oxygen Flow Rate (L/min) 55 Oxygen Delivery Method Airvo Weight: 67.086 kg Body Mass Index (BMI) 27.0 Intake and Output for Last 24 Hours 02/18/20 02/19/20 02/20/20 23:59 23:59 23:59 Intake Total 2150 / 2150 530 / 530 Output Total 1000 / 1000 Balance 2150 / 2150 -470 / -470 General: Alert, Cooperative, No apparent distress Lungs: Clear to auscultation, Diminished Cardiovascular: Regular rate, Regular Rhythm Abdomen: Soft, Non Tender, Non-Distended Skin: No rashes Microbiology Past 72 Hours 02/18/20 14:45 Blood Culture (Wb) - Left Hand Blood Culture - Preliminary No growth in 48 hours. 02/18/20 14:45 Blood Culture (Wb) - Anticubital Left Blood Culture - Preliminary No growth in 48 hours. Laboratory Results 02/19/20 22:17: POC Glucose 383 H 02/20/20 06:29: WBC 10.9, RBC 4.11 L, Hgb 12.0, Hct 34.6 L, MCV 84.2, MCH 29.2, MCHC 34.7, RDW Std Deviation 38.0, RDW Coeff of Misty 12.4, Plt Count 436, MPV 9.2, Immature Gran % (Auto) 2.600 H, Neut % (Auto) 77.8 H, Lymph % (Auto) 14.5 L , [place] % (Auto) 5.0, Eos % (Auto) 0.0, Baso % (Auto) 0.1, Absolute Neuts (auto) 8.5 H, Absolute Lymphs (auto) 1.59, Nucleated RBC % 0 02/20/20 06:29: Sodium 137, Potassium 3.8, Chloride 104, Carbon Dioxide 25.0, Anion Gap 8, BUN 20 H, Creatinine 0.51 L, Estim Creat Clear Calc 90.46, Est GFR (MDRD) Af Amer 156, Est GFR (MDRD) Non-Af 129, BUN/Creatinine Ratio 39.1 H, Glucose 310 H, Calcium 9.2, Total Bilirubin 0.40, AST 47 H, ALT 58 H, Alkaline Phosphatase 83, Total Protein 6.4, Albumin 2.6 L, Globulin 3.8, Albumin/Globulin Ratio 0.7 L 02/20/20 08:49: POC Glucose 302 H 02/20/20 12:13: POC Glucose 329 H Current Medications Acetaminophen (Acetaminophen 325 Mg Tablet) 650 mg PO Q6H PRN PRN PRN Reason: Pain Score 1-10/Temp > 100.7 F Cyclobenzaprine HCl (Cyclobenzaprine Hcl 10 Mg Tablet) 10 mg PO TID PRN PRN PRN Reason: SPASMS Dexamethasone (Dexamethasone 4 Mg Tablet) 6 mg PO DAILY [facility] Stop: 02/27/20 10:01 Last Admin: 02/20/20 08:58 Dose: 6 mg Documented by: Dextrose (Dextrose 50%-Water 25 Gm/50 Ml Disp.Syrin) 0 gm IV X1 PRN; Protocol PRN Reason: Hypoglycemia Enoxaparin Sodium (Enoxaparin 30 Mg/0.3 Ml Syringe) 30 mg SC BID [facility] Last Admin: 02/20/20 08:59 Dose: 30 mg Documented by: Glucagon (Glucagon 1 Mg/Ml Syringe) 1 mg IM .X1 PRN PRN Reason: Hypoglycemia Guaifenesin (Guaifenesin 10 Ml Udc (200mg/10ml)) 20 ml PO Q4H PRN PRN PRN Reason: COUGH Remdesivir 100 mg/ Sodium (Chloride) 250 mls @ 125 mls/hr IV DAILY [facility] Stop: 02/22/20 11:59 Last Infusion: 02/20/20 13:29 Dose: Infused Documented by: Insulin Glargine (Insulin Glargine 100 Units/Ml Pen) 50 units SC QHS [facility] Last Admin: 02/19/20 22:20 Dose: 50 u Documented by: Insulin Human Lispro (Insulin Lispro 100 Unit/Ml Insuln.Pen) 0 unit SC ACHS [facility]; Protocol Last Admin: 02/20/20 12:32 Dose: 8 u Documented by: Insulin Human Lispro (Insulin Lispro 100 Unit/Ml Insuln.Pen) 10 unit SC TIDAC [facility] Last Admin: 02/20/20 12:32 Dose: 10 u Documented by: Linagliptin (Linagliptin 5 Mg Tablet) 5 mg PO DAILY [facility] [place] Last Admin: 02/20/20 08:59 Dose: 5 mg Documented by: Lisinopril (Lisinopril 5 Mg Tablet) 5 mg PO DAILY [facility] Last Admin: 02/20/20 08:59 Dose: 5 mg Documented by: Meloxicam (Meloxicam 15 Mg Tablet) 15 mg PO DAILY [facility] Last Admin: 02/20/20 08:58 Dose: 15 mg Documented by: Ondansetron HCl (Ondansetron 4 Mg/2 Ml Vial) 4 mg IV Q8H PRN PRN PRN Reason: NAUSEA/VOMITING Pantoprazole Sodium (Pantoprazole Sodium 20 Mg Tablet) 20 mg PO DAILY PRN PRN PRN Reason: gerd Throat Lozenges (Benzocaine/Menthol 1 Lozenge) 1 lozenge MUCOUS MEM Q2H PRN PRN PRN Reason: SORE THROAT Medical Necessity - Tobacco Use Smoking Status: Former smoker Tobacco Use: Cigarettes Route of nutrition/ use of supplements: [] Nutritional Intake: [] IV Site: [] Ferro Catheter: [] - Assessment/Plan Antibiotics: [] Assessment/Plan: [] Active and Suspected Problems (Last Reviewed 02/18/20 @ 18:[address] Rambo Holland, DO) COVID-19 (Acute) Acute respiratory failure with hypoxia (Acute) covid with hypoxia - sx started around 02/08, tested (+) 02/10 per [place] records. Cont remdesivir and dex. CT neg for PE. D-dimer was 1 here. Lactate was 2.1. Plan on quarantine until 02/29/20. Complete 10 days of dex. Plan on 2 weeks of xarelto 10mg daily or eliquis 2.5mg bid after discharge. Will follow
[2020-02-20] MEDS: Insulin Lispro 100 UNIT/ML INSULN.PEN 15 UNIT SC (17:31)
[2020-02-20] MEDS: Furosemide 40 MG/4 ML Vial 20 MG IV (17:37)
[2020-02-20 18:01] LABS: Bedside Glucose 329 mg/dL (70-110)
[2020-02-20] MEDS: BENZOCAINE/MENTHOL 1 LOZENGE MUCOUS MEM (21:36)
[2020-02-20] MEDS: Acetaminophen 325 MG Tablet 650 MG PO (21:36)
[2020-02-20] MEDS: guaiFENesin 10 ML UDC (200MG/10ML) 20 ML PO (21:37)
[2020-02-20 22:05] LABS: Bedside Glucose 323 mg/dL (70-110)
[2020-02-21] VITALS (14 sets, daily range): BP systolic 106–145; BP diastolic 58–69; PULSE 51–78; RESP 18–28; TEMP 36.3–37.1; O2SAT 93–96
[2020-02-21] MEDS: Meloxicam 15 MG Tablet PO (09:38)
[2020-02-21] MEDS: Lisinopril 5 MG Tablet PO (09:38)
[2020-02-21] MEDS: Enoxaparin 30 MG/0.3 ML Syringe SC ×2 (09:39→22:12)
[2020-02-21] MEDS: dexAMETHasone 4 MG Tablet 6 MG PO (09:39)
[2020-02-21] MEDS: LINAGLIPTIN 5 MG TABLET PO (09:40)
[2020-02-21] MEDS: Insulin Lispro 100 UNIT/ML INSULN.PEN 15 UNIT SC ×2 (09:41→12:18)
[2020-02-21] MEDS: Insulin Lispro 100 UNIT/ML INSULN.PEN SC ×4 (09:42→22:17)
[2020-02-21 10:06] LABS: Bedside Glucose 210 mg/dL (70-110)
[2020-02-21 13:00] LABS: Bedside Glucose 260 mg/dL (70-110)
--- NOTE | 2020-02-21 13:56 | PCM.PN.HOSP ---
Patient Problems: Active and Suspected Problems (Last Reviewed 02/18/20 @ 18:[address] Rambo Holland, DO) COVID-19 (Acute) Acute respiratory failure with hypoxia (Acute) Subjective: Feels about the same. No issues overnight. Still on air Vo unable to tolerate BiPAP Vitals/I&O's: Vital Signs Temp Pulse Resp BP Pulse Ox 97.7 F L 71 18 133/69 H 96 02/21/20 09:36 02/21/20 13:26 02/21/20 13:26 02/21/20 09:36 02/21/20 13:26 Oxygen Flow Rate (L/min) 50 Oxygen Delivery Method Airvo Weight: 147 lb 14.389 oz Body Mass Index (BMI) 27.0 Intake and Output for Last 24 Hours 02/19/20 02/20/20 02/21/20 23:59 23:59 23:59 Intake Total 2150 / 2150 730 / 830 750 / 750 Output Total 1300 / 1300 600 / 600 Balance 2150 / 2150 -570 / -470 150 / 150 General: Alert, Oriented x3, Cooperative, No apparent distress HEENT: Atraumatic, PERRLA, EOMI, Normocephalic Oral: Moist Mucosa Neck: Supple, No JVD Lungs: Normal air movement, No rhonchi, No wheeze, rales, Diminished Cardiovascular: Regular rate, Regular Rhythm, Normal S1, Normal S2, No murmurs Abdomen: Soft, Non Tender, Non-Distended, No Hepato-splenomegaly Extremities: No edema, Capillary Refill Less than 3 Seconds Skin: No rashes, No breakdown Neurological: Neuro grossly intact, Sensory exam intact to light touch and pain Psych/Mental Status: Normal Affect, Appropriate Microbiology Past 72 Hours 02/18/20 14:45 Blood Culture (Wb) - Left Hand Blood Culture - Preliminary No growth in 48 hours. 02/18/20 14:45 Blood Culture (Wb) - Anticubital Left Blood Culture - Preliminary No growth in 48 hours. Laboratory Results 02/20/20 17:29: POC Glucose 329 H 02/20/20 21:33: POC Glucose 323 H 02/21/20 09:35: POC Glucose 210 H 02/21/20 12:15: POC Glucose 260 H Current Medications Acetaminophen (Acetaminophen 325 Mg Tablet) 650 mg PO Q6H PRN PRN PRN Reason: Pain Score 1-10/Temp > 100.7 F Last Admin: 02/20/20 21:36 Dose: 650 mg Documented by: Cyclobenzaprine HCl (Cyclobenzaprine Hcl 10 Mg Tablet) 10 mg PO TID PRN PRN PRN Reason: SPASMS Dexamethasone (Dexamethasone 4 Mg Tablet) 6 mg PO DAILY [facility] Stop: 02/27/20 10:01 Last Admin: 02/21/20 09:39 Dose: 6 mg Documented by: Dextrose (Dextrose 50%-Water 25 Gm/50 Ml Disp.Syrin) 0 gm IV X1 PRN; Protocol PRN Reason: Hypoglycemia Enoxaparin Sodium (Enoxaparin 30 Mg/0.3 Ml Syringe) 30 mg SC BID [facility] Last Admin: 02/21/20 09:39 Dose: 30 mg Documented by: Glucagon (Glucagon 1 Mg/Ml Syringe) 1 mg IM .X1 PRN PRN Reason: Hypoglycemia Guaifenesin (Guaifenesin 10 Ml Udc (200mg/10ml)) 20 ml PO Q4H PRN PRN PRN Reason: COUGH Last Admin: 02/20/20 21:37 Dose: 20 ml Documented by: Remdesivir 100 mg/ Sodium (Chloride) 250 mls @ 125 mls/hr IV DAILY [facility] Stop: 02/22/20 11:59 Last Infusion: 02/21/20 12:39 Dose: Infused Documented by: Insulin Glargine (Insulin Glargine 100 Units/Ml Pen) 35 units SC BID [facility] Last Admin: 02/21/20 09:43 Dose: 35 units Documented by: Insulin Human Lispro (Insulin Lispro 100 Unit/Ml Insuln.Pen) 0 unit SC ACHS [facility]; Protocol Last Admin: 02/21/20 12:16 Dose: 6 u Documented by: Insulin Human Lispro (Insulin Lispro 100 Unit/Ml Insuln.Pen) 15 unit SC TIDAC [facility] Last Admin: 02/21/20 12:18 Dose: 15 u Documented by: Linagliptin (Linagliptin 5 Mg Tablet) 5 mg PO DAILY [facility] Last Admin: 02/21/20 09:40 Dose: 5 mg Documented by: Lisinopril (Lisinopril 5 Mg Tablet) 5 mg PO DAILY [facility] Last Admin: 02/21/20 09:38 Dose: 5 mg Documented by: Meloxicam (Meloxicam 15 Mg Tablet) 15 mg PO DAILY [facility] Last Admin: 02/21/20 09:38 Dose: 15 mg Documented by: Ondansetron HCl (Ondansetron 4 Mg/2 Ml Vial) 4 mg IV Q8H PRN PRN PRN Reason: NAUSEA/VOMITING Pantoprazole Sodium (Pantoprazole Sodium 20 Mg Tablet) 20 mg PO DAILY PRN PRN PRN Reason: gerd Throat Lozenges (Benzocaine/Menthol 1 Lozenge) 1 lozenge MUCOUS MEM Q2H PRN PRN PRN Reason: SORE THROAT Last Admin: 02/20/20 21:36 Dose: 1 lozenge Documented by: STROKE Vital Signs/Narrative: Vital Signs Pulse Resp Pulse Ox 02/21/20 13:26 71 18 96 Medical Necessity - Tobacco Use Smoking Status: Former smoker Tobacco Use: Cigarettes Assessment/Plan All Active Problems (Last Reviewed 02/18/20 @ 18:[address] Rambo Holland, DO) COVID-19 (Acute) Acute respiratory failure with hypoxia (Acute) 1. Acute hypoxic respiratory failure secondary to COVID-19 pneumonia -Started on February 09 and she needed 5 L nasal cannula on admission even though she does not wear oxygen at home at baseline -Throughout the day she had increasing oxygen requirements and was placed on air Vo -Continue with remdesivir and Decadron -Despite the BNP of 7 on admission, she does have some rales therefore we will give her another dose of Lasix today 2. DM 2 -We will continue with her home insulin as well as a sliding scale insulin -Accu-Cheks AC at bedtime -We will make insulin adjustments secondary to her Decadron usage 3. GERD -Stable -Continue with PPI DVT: Lovenox Inpatient E&M: 28961 Subs Hosp L2
[2020-02-21] MEDS: Furosemide 40 MG/4 ML Vial IV (14:37)
[2020-02-21] MEDS: Insulin Lispro 100 UNIT/ML INSULN.PEN 20 UNIT SC (17:09)
[2020-02-21 17:21] LABS: Bedside Glucose 382 mg/dL (70-110)
[2020-02-21] MEDS: Acetaminophen 325 MG Tablet 650 MG PO (22:27)
[2020-02-21 23:36] LABS: Bedside Glucose 388 mg/dL (70-110)
[2020-02-22] VITALS (8 sets, daily range): BP systolic 111–133; BP diastolic 68–78; PULSE 58–79; RESP 18–22; TEMP 36.2–36.9; O2SAT 92–97
[2020-02-22 05:29] LABS: Absolute Lymphocyte Count 1.62 X10^3/uL (0.83-4.51); Absolute Neutrophil Count 7.4 X10^3/uL (2.0-7.7); Basophil# 0.02 X10^3/uL; Basophil% 0.2 % (0-1); Eosinophil# 0.01 X10^3/uL; Eosinophils% 0.1 % (0-5); Hematocrit 37.6 % (37-47); Hemoglobin 12.8 g/dL (12.0-15.0); Lymphocyte # 1.62 X10^3/ul (4.0); Lymphocyte % 16.3 % (19-41); Mean Corpuscular Hgb 28.4 pg (27.0-32.0); Mean Corpuscular Volume 83.4 fL (81-99); Monocyte# 0.53 X10^3/uL; Monocyte% 5.3 % (0-10); NRBC Flagged by Analyzer 0 % (0-5); Neutrophil % 74.3 % (47-70); Platelet Count 508 K/mm3 (150-450); RBC Distribution Width CV 12.4 % (11.6-14.6); RBC Distribution Width SD 37.8 fl (35.1-43.9); Red Blood Count 4.51 M/mm3 (4.2-5.4)
[2020-02-22 06:00] LABS: ALB/GLOB Ratio 0.7 RATIO (0.9-2.4); AST(SGOT) 38 U/L (15-37); Alanine Aminotransfer ALT/SGPT 57 U/L (13-56); Albumin, Serum 2.6 g/dL (3.2-5.0); Alkaline Phosphatase 88 U/L (45-117); Anion Gap 7 (5-15); BUN 21 mg/dL (7-18); BUN/Creat Ratio 40.4 RATIO (10-20); Calcium,Total 9.2 mg/dL (8.5-10.1); Chloride 99 mmol/L (98-107); Creatinine, Serum 0.52 mg/dL (0.55-1.02); EST Glomerular Filtration Rate 127 mL/min (>60); Est Glom Filt Rate - Afr Amer 153 mL/min (>60); Estimated Creatinine Clearance 88.72 ml/min; Globulin 3.9 g/dL (2.2-4.2); Glucose 207 mg/dL (74-106); Protein, Total 6.5 g/dL (6.4-8.2); Sodium Level 135 mmol/L (136-145)
--- NOTE | 2020-02-22 06:51 | PN_ITS ---
Patient Problems: Active and Suspected Problems (Last Reviewed 02/18/20 @ 18:[address] Rambo Holland, DO) COVID-19 (Acute) Acute respiratory failure with hypoxia (Acute) Subjective: Patient with no acute events overnight per self and per nursing report with continued usage of air Vo with decrease upon a.m. evaluation to 6 L nasal cannula with ongoing IV Lasix usage. She notes she is still significantly short of breath with exertion. She continues to have elevated blood sugars associated with steroid therapy. She does note that her diarrhea has resolved over the last 48 hours. She does admit to a decreased appetite but is attempting to have some intake. Patient denies fevers, chills, nausea, emesis, abdominal pain, mark[address] pain. Objective: Physical Examination: General: awake, alert, oriented x 3 and cooperative, seated upright in the medical surgical bed, fatigued but no acute distress Skin: normal color, turgor, no icterus, cyanosis. HEENT: AT/NC, EOMI, PERRLA, mildly dry MM. Lungs: Diminished breath sounds, greater bases, moderate effort, no rales, ronchi or wheezing. Heart: Regular rate and rhythm; no gallop, rub audible. Abdomen: soft, mild discomfort with generalized palpation but no rebound or guarding, ND, mildly hyperactive bowel sounds. Extremities: no cyanosis or clubbing, mild ankle nonpitting edema. Neurological: patient awake, alert, oriented as noted; cognitive function intact; pupils equally reactive to light and accomodation; cranial nerves II-XII grossly normal, moving all 4 extremities, no focal deficits, strength severely global decrease secondary to acute presentation. Psychiatric: affect appears fatigued otherwise normal, no acute evidence of depressive or anxiety feelings. Vitals/I&O's: Vital Signs Temp Pulse Resp BP Pulse Ox 97.6 F L 61 20 H 117/71 92 02/22/20 05:32 02/22/20 05:32 02/22/20 05:32 02/22/20 05:32 02/22/20 05:32 Oxygen Flow Rate (L/min) 6 Oxygen Delivery Method Nasal Cannula Weight: 147 lb 14.389 oz Body Mass Index (BMI) 27.0 Intake and Output for Last 24 Hours 02/20/20 02/21/20 02/22/20 23:59 23:59 23:59 Intake Total 730 / 830 1350 / 1550 200 / 200 Output Total 1300 / 1300 2600 / 2900 500 / 500 Balance -570 / -470 -1250 / -1350 -300 / -300 Microbiology Past 72 Hours 02/18/20 14:45 Blood Culture (Wb) - Left Hand Blood Culture - Preliminary No growth in 48 hours. 02/18/20 14:45 Blood Culture (Wb) - Anticubital Left Blood Culture - Preliminary No growth in 48 hours. Laboratory Results 02/21/20 09:35: POC Glucose 210 H 02/21/20 12:15: POC Glucose 260 H 02/21/20 17:06: POC Glucose 382 H 02/21/20 22:15: POC Glucose 388 H 02/22/20 05:06: WBC 10.0, RBC 4.51, Hgb 12.8, Hct 37.6, MCV 83.4, MCH 28.4, MCHC 34.0, RDW Std Deviation 37.8, RDW Coeff of Mitsy 12.4, Plt Count 508 H, MPV 9.0, Immature Gran % (Auto) 3.800 H, Neut % (Auto) 74.3 H, Lymph % (Auto) 16.3 L, [place] % (Auto) 5.3, Eos % (Auto) 0.1, Baso % (Auto) 0.2, Absolute Neuts (auto) 7.4, Absolute Lymphs (auto) 1.62, Nucleated RBC % 0 02/22/20 05:06: Sodium 135 L, Potassium 3.0 L, Chloride 99, Carbon Dioxide 29.0, Anion Gap 7, BUN 21 H, Creatinine 0.52 L, Estim Creat Clear Calc 88.72, Est GFR (MDRD) Af Amer 153, Est GFR (MDRD) Non-Af 127, BUN/Creatinine Ratio 40.4 H, Glucose 207 H, Calcium 9.2, Total Bilirubin 0.50, AST 38 H, ALT 57 H, Alkaline Phosphatase 88, Total Protein 6.5, Albumin 2.6 L, Globulin 3.9, Albumin/Globulin Ratio 0.7 L Current Medications Acetaminophen (Acetaminophen 325 Mg Tablet) 650 mg PO Q6H PRN PRN PRN Reason: Pain Score 1-10/Temp > 100.7 F Last Admin: 02/21/20 22:27 Dose: 650 mg Documented by: Cyclobenzaprine HCl (Cyclobenzaprine Hcl 10 Mg Tablet) 10 mg PO TID PRN PRN PRN Reason: SPASMS Dexamethasone (Dexamethasone 4 Mg Tablet) 6 mg PO DAILY [facility] Stop: 02/27/20 10:01 Last Admin: 02/21/20 09:39 Dose: 6 mg Documented by: Dextrose (Dextrose 50%-Water 25 Gm/50 Ml Disp.Syrin) 0 gm IV X1 PRN; Protocol PRN Reason: Hypoglycemia Enoxaparin Sodium (Enoxaparin 30 Mg/0.3 Ml Syringe) 30 mg SC BID [facility] Last Admin: 02/21/20 22:12 Dose: 30 mg Documented by: Glucagon (Glucagon 1 Mg/Ml Syringe) 1 mg IM .X1 PRN PRN Reason: Hypoglycemia Guaifenesin (Guaifenesin 10 Ml Udc (200mg/10ml)) 20 ml PO Q4H PRN PRN PRN Reason: COUGH Last Admin: 02/20/20 21:37 Dose: 20 ml Documented by: Remdesivir 100 mg/ Sodium (Chloride) 250 mls @ 125 mls/hr IV DAILY [facility] Stop: 02/22/20 11:59 Last Infusion: 02/21/20 12:39 Dose: Infused Documented by: Insulin Glargine (Insulin Glargine 100 Units/Ml Pen) 35 units SC BID [facility] Last Admin: 02/21/20 22:16 Dose: 35 units Documented by: Insulin Human Lispro (Insulin Lispro 100 Unit/Ml Insuln.Pen) 0 unit SC ACHS [facility]; Protocol Last Admin: 02/21/20 22:17 Dose: 10 u Documented by: Insulin Human Lispro (Insulin Lispro 100 Unit/Ml Insuln.Pen) 20 unit SC TIDAC [facility] Last Admin: 02/21/20 17:09 Dose: 20 units Documented by: Linagliptin (Linagliptin 5 Mg Tablet) 5 mg PO DAILY [facility] Last Admin: 02/21/20 09:40 Dose: 5 mg Documented by: Lisinopril (Lisinopril 5 Mg Tablet) 5 mg PO DAILY [facility] Last Admin: 02/21/20 09:38 Dose: 5 mg Documented by: Meloxicam (Meloxicam 15 Mg Tablet) 15 mg PO DAILY [facility] Last Admin: 02/21/20 09:38 Dose: 15 mg Documented by: Ondansetron HCl (Ondansetron 4 Mg/2 Ml Vial) 4 mg IV Q8H PRN PRN PRN Reason: NAUSEA/VOMITING Pantoprazole Sodium (Pantoprazole Sodium 20 Mg Tablet) 20 mg PO DAILY PRN PRN PRN Reason: gerd Throat Lozenges (Benzocaine/Menthol 1 Lozenge) 1 lozenge MUCOUS MEM Q2H PRN PRN PRN Reason: SORE THROAT Last Admin: 02/20/20 21:36 Dose: 1 lozenge Documented by: STROKE Vital Signs/Narrative: Vital Signs Temp Pulse Resp BP Pulse Ox 02/22/20 05:32 97.6 F L 61 20 H 117/71 92 02/22/20 05:00 95 02/22/20 03:34 97.8 F 64 22 H 130/68 H 97 Medical Necessity - Tobacco Use Smoking Status: Former smoker Tobacco Use: Cigarettes Assessment/Plan All Active Problems (Last Reviewed 02/18/20 @ 18:[address] Rambo Holland, DO) COVID-19 (Acute) Acute respiratory failure with hypoxia (Acute) The patient is a 64 y/o F w/ PMHx: Former Tobacco use, HTN, GERD, Diabetes mellitus type II, OA who presented to the [facility] ED on 02/18/20 with history of in itial onset fatigue, malaise, dyspnea, fever on 02/10/2020 with Covid check on 02/14/2020 with discharge to home from ED at that time however clinically worsened requiring return. 1. Acute hypoxic respiratory failure secondary to acute COVID-19 Pneumonia: Patient with significant oxygenation requirements, requiring air Vo still at nights, unable to tolerate BiPAP therapy, imaging with bilateral pulmonary infiltrates, follow-up CTPA with no evidence of pulmonary emboli but confirmation bilateral pneumonia, continued on Decadron, remdesivir to completion, IV Lasix dosing 02/21/20 x 1, will repeat dosing today and continue to clinically monitor, infectious disease consulted and following. If clinically worsens may need to consider pulmonary evaluation. 2. Hypokalemia: Admission K+ 3.0, magnesium level requested, supplementation given, repeat level in AM. 3. Hypertension: Continue home regimen including lisinopril with hold parameters, IV Lasix usage as noted above with hold parameters as needed, PRN hydralazine. 4. Diabetes mellitus type II: We will increase from Lantus 35 units to 40 units twice daily given elevated blood sugars as expected with steroid usage, alter further as needed, maintain on ADA diet, continue accu checks w/ ISS as needed and also currently on scheduled 3 times daily regimen although high dose, may need to de-escalate but will continue to monitor. 5. GERD: We will continue PPI. 6. DVT prophylaxis: SCDs, Lovenox. 7. CODE STATUS: Full code. Attempted to contact patient ; however, phone number listed not working, reviewed with dry drug worker MS2 and will attempt to obtain updated information. Was able to get his cell [phone] and reviewed her status with him. Inpatient E&M: 95525 Subs Hosp L3
[2020-02-22] MEDS: Insulin Lispro 100 UNIT/ML INSULN.PEN 20 UNIT SC ×3 (08:29→16:17)
[2020-02-22] MEDS: LINAGLIPTIN 5 MG TABLET PO (08:30)
[2020-02-22] MEDS: Lisinopril 5 MG Tablet PO (08:30)
[2020-02-22] MEDS: Meloxicam 15 MG Tablet PO (08:30)
[2020-02-22] MEDS: dexAMETHasone 4 MG Tablet 6 MG PO (08:31)
[2020-02-22] MEDS: Enoxaparin 30 MG/0.3 ML Syringe SC ×2 (08:31→21:09)
[2020-02-22 09:05] LABS: Bedside Glucose 148 mg/dL (70-110)
[2020-02-22] MEDS: Insulin Lispro 100 UNIT/ML INSULN.PEN SC ×3 (11:52→21:09)
[2020-02-22 12:53] LABS: Magnesium 1.4 mg/dL (1.6-2.6)
[2020-02-22 13:05] LABS: Bedside Glucose 307 mg/dL (70-110)
[2020-02-22] MEDS: Furosemide 40 MG/4 ML Vial IV (13:27)
[2020-02-22 16:41] LABS: Bedside Glucose 395 mg/dL (70-110)
[2020-02-23 00:45] LABS: Bedside Glucose 326 mg/dL (70-110)
[2020-02-23 04:26] VITALS: BP 93/58; PULSE 56; RESP 18; TEMP 36.4; O2SAT 95
--- NOTE | 2020-02-23 05:54 | PCS.PANDOC ---
PANDEMIC DOCUMENTATION INITIATED: Date: 02/23/2020 Time: 0554
--- NOTE | 2020-02-23 06:56 | PCM.PN.HOSP ---
Patient Problems: Active and Suspected Problems (Last Reviewed 02/18/20 @ 18:[address] Rambo Holland, DO) COVID-19 (Acute) Acute respiratory failure with hypoxia (Acute) Subjective: Patient with no acute events overnight per self and per nursing report. Patient less fatigue, appetite has been improving and she feels less short of breath also with less coughing. Did perform oxygenation trial this a.m. to attempt discharge however patient was significantly hypoxic noted to be 86% on 6 L requiring increased to even 8 L with activity with significant rest time needed to improve even to 91%. Discussed with patient that discharge would be planned if 6 L oxygen continued usage at both rest and activity possible but given this plan continued inpatient treatment to which she was amenable. Patient denies fevers, chills, nausea, emesis, abdominal pain, chest pain. Objective: Physical Examination: General: awake, alert, oriented x 3 and cooperative, seated upright in the medical surgical bed, fatigued notes feeling improved from day prior, prior to oxygenation assessment. Skin: normal color, turgor, no icterus, cyanosis. HEENT: AT/NC, EOMI, PERRLA, improved MMM. Lungs: Diminished breath sounds, greater bases, moderate effort, no rales, ronchi or wheezing. Heart: Regular rate and rhythm; no gallop, rub audible. Abdomen: soft, improved, nontender to palpation, nondistended, normalized bowel sounds. Extremities: no cyanosis or clubbing, mild ankle nonpitting edema. Neurological: patient awake, alert, oriented as noted; cognitive function intact; pupils equally reactive to light and accomodation; cranial nerves II-XII grossly normal, moving all 4 extremities, no focal deficits, strength improving, moderately to severely global decrease secondary to acute presentation. Psychiatric: affect appears less fatigued, more interactive, no acute evidence of depressive or anxiety feelings. Vitals/I&O's: Vital Signs Temp Pulse Resp BP Pulse Ox 97.6 F L 56 L 18 93/58 L 95 02/23/20 04:26 02/23/20 04:26 02/23/20 04:26 02/23/20 04:26 02/23/20 04:26 Oxygen Flow Rate (L/min) 6 Oxygen Delivery Method Nasal Cannula Weight: 147 lb 14.389 oz Body Mass Index (BMI) 27.0 Intake and Output for Last 24 Hours 12/24/20 12/25/20 12/26/20 23:59 23:59 23:59 Intake Total 1350 / 1550 1210 / 1450 440 / 440 Output Total 2600 / 2900 2000 / 2500 500 / 500 Balance -1250 / -1350 -790 / -1050 -60 / -60 Microbiology Past 72 Hours 02/18/20 14:45 Blood Culture (Wb) - Left Hand Blood Culture - Preliminary No growth in 48 hours. 02/18/20 14:45 Blood Culture (Wb) - Anticubital Left Blood Culture - Preliminary No growth in 48 hours. Laboratory Results 02/22/20 05:06: Magnesium 1.4 L 02/22/20 08:26: POC Glucose 148 H 02/22/20 11:51: POC Glucose 307 H 02/22/20 16:16: POC Glucose 395 H 02/22/20 21:07: POC Glucose 326 H Current Medications Acetaminophen (Acetaminophen 325 Mg Tablet) 650 mg PO Q6H PRN PRN PRN Reason: Pain Score 1-10/Temp > 100.7 F Last Admin: 02/21/20 22:27 Dose: 650 mg Documented by: Cyclobenzaprine HCl (Cyclobenzaprine Hcl 10 Mg Tablet) 10 mg PO TID PRN PRN PRN Reason: SPASMS Dexamethasone (Dexamethasone 4 Mg Tablet) 6 mg PO DAILY [facility] Stop: 02/27/20 10:01 Last Admin: 02/22/20 08:31 Dose: 6 mg Documented by: Dextrose (Dextrose 50%-Water 25 Gm/50 Ml Disp.Syrin) 0 gm IV X1 PRN; Protocol PRN Reason: Hypoglycemia Enoxaparin Sodium (Enoxaparin 30 Mg/0.3 Ml Syringe) 30 mg SC BID [facility] Last Admin: 02/22/20 21:09 Dose: 30 mg Documented by: Glucagon (Glucagon 1 Mg/Ml Syringe) 1 mg IM .X1 PRN PRN Reason: Hypoglycemia Guaifenesin (Guaifenesin 10 Ml Udc (200mg/10ml)) 20 ml PO Q4H PRN PRN PRN Reason: COUGH Last Admin: 02/20/20 21:37 Dose: 20 ml Documented by: Insulin Glargine (Insulin Glargine 100 Units/Ml Pen) 40 units SC BID [facility] Last Admin: 02/22/20 21:08 Dose: 40 u Documented by: Insulin Human Lispro (Insulin Lispro 100 Unit/Ml Insuln.Pen) 0 unit SC ACHS [facility]; Protocol Last Admin: 02/22/20 21:09 Dose: 8 u Documented by: Insulin Human Lispro (Insulin Lispro 100 Unit/Ml Insuln.Pen) 20 unit SC TIDAC [facility] Last Admin: 02/22/20 16:17 Dose: 20 units Documented by: Linagliptin (Linagliptin 5 Mg Tablet) 5 mg PO DAILY [facility] Last Admin: 02/22/20 08:30 Dose: 5 mg Documented by: Lisinopril (Lisinopril 5 Mg Tablet) 5 mg PO DAILY [facility] Last Admin: 02/22/20 08:30 Dose: 5 mg Documented by: Meloxicam (Meloxicam 15 Mg Tablet) 15 mg PO DAILY [facility] Last Admin: 02/22/20 08:30 Dose: 15 mg Documented by: Ondansetron HCl (Ondansetron 4 Mg/2 Ml Vial) 4 mg IV Q8H PRN PRN PRN Reason: NAUSEA/VOMITING Pantoprazole Sodium (Pantoprazole Sodium 20 Mg Tablet) 20 mg PO DAILY PRN PRN PRN Reason: gerd Throat Lozenges (Benzocaine/Menthol 1 Lozenge) 1 lozenge MUCOUS MEM Q2H PRN PRN PRN Reason: SORE THROAT Last Admin: 02/20/20 21:36 Dose: 1 lozenge Documented by: STROKE Vital Signs/Narrative: Vital Signs Temp Pulse Resp BP Pulse Ox 02/23/20 04:26 97.6 F L 56 L 18 93/58 L 95 Medical Necessity - Tobacco Use Smoking Status: Former smoker Tobacco Use: Cigarettes Assessment/Plan All Active Problems (Last Reviewed 02/18/20 @ 18:[address] Rambo Holland, DO) COVID-19 (Acute) Acute respiratory failure with hypoxia (Acute) The patient is a 64 y/o F w/ PMHx: Former Tobacco use, HTN, GERD, Diabetes mellitus type II, OA who presented to the [facility] ED on 02/18/20 with history of initial onset fatigue, malaise, dyspnea, fever on 02/10/2020 with Covid check on 02/14/2020 with discharge to home from ED at that time however clinically worsened requiring return. 1. Acute hypoxic respiratory failure secondary to acute COVID-19 Pneumonia: Patient with significant oxygenation requirements, requiring air Vo still at nights, unable to tolerate BiPAP therapy, imaging with bilateral pulmonary infiltrates, follow-up CTPA with no evidence of pulmonary emboli but confirmation bilateral pneumonia, continued on Decadron, remdesivir to completion, IV Lasix daily dosing x3 days now, will obtain repeat D-dimer and if elevated will transition to therapeutic Lovenox, oxygenation trial 02/23/20 with significant oxygen requirements up to 8 L to maintain oxygenation with significant rest required and only improvement to 91%, infectious disease consulted and following. As noted we will plan to continue diuresis and if necessary transition to therapeutic Lovenox if D-dimer continues to be elevated. 2. Hypokalemia: 02/23/20 potassium 3.4, magnesium level obtained and noted to be 1.4, supplementation administered, plan repeat CMP in AM. 3. Hypertension: Continue home regimen including lisinopril with hold parameters, IV Lasix usage as noted above with hold parameters as needed, PRN hydralazine. 4. Diabetes mellitus type II: 02/22/20 increase Lantus to 40 units twice daily given elevated blood sugars with steroid usage, ongoing elevated blood sugars but early a.m. 108, will hold on further elevations and continue to monitor given concurrent usage of scheduled TID dosing alter further as needed, maintain on ADA diet, continue accu checks w/ ISS. 5. GERD: We will continue PPI. 6. DVT prophylaxis: SCDs, Lovenox. 7. CODE STATUS: Full code. Inpatient E&M: 10981 Subs Hosp L2
[2020-02-23 07:50] VITALS: O2SAT 95
[2020-02-23 07:53] VITALS: BP 103/54; PULSE 55; RESP 18; TEMP 37.1; O2SAT 95
[2020-02-23 07:54] LABS: ALB/GLOB Ratio 0.6 RATIO (0.9-2.4); AST(SGOT) 40 U/L (15-37); Alanine Aminotransfer ALT/SGPT 53 U/L (13-56); Albumin, Serum 2.4 g/dL (3.2-5.0); Alkaline Phosphatase 80 U/L (45-117); Anion Gap 3 (5-15); BUN 22 mg/dL (7-18); BUN/Creat Ratio 51.3 RATIO (10-20); Calcium,Total 9.1 mg/dL (8.5-10.1); Chloride 105 mmol/L (98-107); Creatinine, Serum 0.43 mg/dL (0.55-1.02); EST Glomerular Filtration Rate 158 mL/min (>60); Est Glom Filt Rate - Afr Amer 191 mL/min (>60); Estimated Creatinine Clearance 107.29 ml/min; Globulin 3.9 g/dL (2.2-4.2); Glucose 106 mg/dL (74-106); Potassium 3.4 mmol/L (3.5-5.1); Protein, Total 6.3 g/dL (6.4-8.2); Sodium Level 139 mmol/L (136-145)
[2020-02-23] MEDS: dexAMETHasone 4 MG Tablet 6 MG PO (07:58)
[2020-02-23] MEDS: Lisinopril 5 MG Tablet PO (07:58)
[2020-02-23] MEDS: LINAGLIPTIN 5 MG TABLET PO (07:58)
[2020-02-23] MEDS: Meloxicam 15 MG Tablet PO (07:59)
[2020-02-23] MEDS: Enoxaparin 30 MG/0.3 ML Syringe SC (07:59)
[2020-02-23 09:12] LABS: Hematocrit 38.9 % (37-47); Hemoglobin 13.1 g/dL (12.0-15.0); Mean Corp Hgb Conc 33.7 g/dL (32-36); Mean Corpuscular Hgb 28.7 pg (27.0-32.0); Mean Corpuscular Volume 85.1 fL (81-99); Mean Platelet Vol. 9.3 fl (6.2-12.0); POSITIVE COUNT YES; POSITIVE MORPHOLOGY YES; Platelet Count 546 K/mm3 (150-450); RBC Distribution Width CV 12.6 % (11.6-14.6); RBC Distribution Width SD 38.9 fl (35.1-43.9); Red Blood Count 4.57 M/mm3 (4.2-5.4); White Blood Count 11.1 K/mm3 (4.4-11.0)
[2020-02-23 09:21] LABS: Differential Indicated MANUAL DIFF
[2020-02-23 10:20] LABS: Eosinophil 1 % (0-5); Lymphocyte 30 % (19-41); Monocyte 5 % (0-10); Myelocyte 1 (0-0); Neutrophil-Band 2 % (0-5); Neutrophil-Segmented 61 % (47-70); Total Cells Counted 100 (MANUAL DIFF)
[2020-02-23 10:23] VITALS: O2SAT 86
[2020-02-23 10:23] LABS: Absolute Lymphocyte Count 3.32 X10^3/uL (0.83-4.51); Platelet Estimate MOD INC (ADEQ); Reactive Lymphocyte 2+; Red Cell Morphology NORM C+C NORMAL (NORM C&C)
--- NOTE | 2020-02-23 10:23 | NURSING ---
Dr. Erazo wanted pt to walk in room while on oxygen and get a walking spo2. Pt on 6L [place] and spo2 was 91% at rest. While walking on 6L [place] pt dropped down to 86%. This nurse increased to 7L where spo2 continued to stay at 86%. It wasnt until o2 was increased to 8L that spo2 came up to 88%. Pt did not look in distress but was SOB. Assisted back to bed, helped pt to recover, then once back at 91% on monitor, this nurse decreased o2 back to 6L. After 5 min, pt has maintained spo2 at 91% on the 6L [place]
[2020-02-23 11:26] LABS: Bedside Glucose 108 mg/dL (70-110)
[2020-02-23] MEDS: Insulin Lispro 100 UNIT/ML INSULN.PEN SC ×3 (11:49→20:14)
[2020-02-23] MEDS: Insulin Lispro 100 UNIT/ML INSULN.PEN 20 UNIT SC ×2 (11:50→17:22)
[2020-02-23 12:15] LABS: Bedside Glucose 375 mg/dL (70-110)
[2020-02-23] MEDS: Magnesium Sulfate 4gm/100mL 4 GM/100 ML IV.SOLN. IV (13:30)
[2020-02-23] MEDS: Furosemide 40 MG/4 ML Vial IV (13:30)
[2020-02-23 15:21] LABS: D-Dimer Quantitative (DVT/PE) 0.69 FEU/ug/m (0.27-0.49)
[2020-02-23 16:06] VITALS: BP 110/59; PULSE 88; RESP 18; TEMP 36.8; O2SAT 94
[2020-02-23 17:31] LABS: Bedside Glucose 434 mg/dL (70-110)
[2020-02-23] MEDS: Enoxaparin 80 MG/0.8 ML Syringe 70 MG SC (20:13)
[2020-02-23 20:20] VITALS: BP 111/66; PULSE 80; RESP 18; TEMP 36.7; O2SAT 93
[2020-02-23 20:55] LABS: Bedside Glucose 426 mg/dL (70-110)
[2020-02-24] VITALS (7 sets, daily range): BP systolic 93–114; BP diastolic 50–68; PULSE 60–78; RESP 16–18; TEMP 36.7–37.1; O2SAT 93–96
[2020-02-24 06:53] LABS: Hematocrit 38.4 % (37-47); Mean Corp Hgb Conc 33.9 g/dL (32-36); Mean Corpuscular Hgb 28.9 pg (27.0-32.0); Mean Corpuscular Volume 85.3 fL (81-99); POSITIVE COUNT YES; POSITIVE MORPHOLOGY YES; Platelet Count 539 K/mm3 (150-450); RBC Distribution Width CV 12.7 % (11.6-14.6); RBC Distribution Width SD 39.4 fl (35.1-43.9); White Blood Count 13.4 K/mm3 (4.4-11.0)
[2020-02-24 07:01] LABS: Differential Indicated MANUAL DIFF
--- NOTE | 2020-02-24 07:04 | PCM.PN.HOSP ---
Patient Problems: Active and Suspected Problems (Last Reviewed 02/18/20 @ 18:[address] Rambo Holland, DO) COVID-19 (Acute) Acute respiratory failure with hypoxia (Acute) Subjective: The patient is a 64 y/o F w/ PMHx: Former Tobacco use, HTN, GERD, Diabetes mellitus type II, OA who presented to the [facility] ED on 02/18/20 with history of initial onset fatigue, malaise, dyspnea, fever on 02/10/2020 with Covid check on 02/14/2020 with discharge to home from ED at that time however clinically worsened requiring return. Patient with significant oxygenation requirements, requiring air Vo still at nights, unable to tolerate BiPAP therapy, imaging with bilateral pulmonary infiltrates, follow-up CTPA with no evidence of pulmonary emboli but confirmation bilateral pneumonia, continued on Decadron IV to oral regimen to complete total 10 day course, remdesivir to completion, IV Lasix daily with dose administered 02/24/20, 02/23/20 repeat D-dimer 0.69, per discussion with Pulmonary given ongoing hypoxia/high supplementation needs and failure upon oxygenation assessment transitioned to therapeutic lovenox regimen, will plan continued diuresis and repeat 02/25/20 oxygenation assessment and if remains 6L NC with recovery ability would discharge to home. If worsens may consider Pulmonary consultation. Infectious consulted. 02/22/20 increased Lantus to 40 units twice daily given elevated blood sugars with steroid usage, ongoing elevated blood sugars but early a.m. 108, thus held on further increase; however, continued elevations 02/24/20, will increase lantus to 45 u BID, continued TID scheduled and overlapping high dose ISS. Transitioned from IV to oral decadron with 3 additional doses remaining. Patient overnight with no acute events per self and per nursing report. She states oral intake is continuing to improve and admittedly she did have significant intake of calories this morning with significant hyperglycemia following. Education given on appropriate oral intake especially given her underlying diabetes on steroids. Discussed oxygenation assessment which had been significantly difficult the day prior with severe hypoxia therefore decision for planned repeat 02/25/2020 a.m. oxygenation assessment for possible discharge planning to home. Patient notes feeling less weak but still very fatigued. Patient denies fevers, chills, nausea, emesis, abdominal pain, chest pain. Objective: Physical Examination: General: awake, alert, oriented x 3 and cooperative, laying in the [place] COVID bed, fatigued, NAD. Skin: normal color, turgor, no icterus, cyanosis. HEENT: AT/NC, EOMI, PERRLA, MMM. Lungs: Diminished breath sounds, greater bases, moderate effort, no rales, ronchi or wheezing. Heart: Regular rate and rhythm; no gallop, rub audible. Abdomen: soft, NTTP, ND, normalized bowel sounds. Extremities: no cyanosis or clubbing, mild ankle nonpitting edema. Neurological: patient awake, alert, oriented as noted; cognitive function intact; pupils equally reactive to light and accomodation; cranial nerves II-XII grossly normal, moving all 4 extremities, no focal deficits, strength improving, moderately to severely global decrease secondary to acute presentation. Psychiatric: affect appears more fatigued than day prior, no acute evidence of depressive or anxiety feelings. Vitals/I&O's: Vital Signs Temp Pulse Resp BP Pulse Ox 98.1 F 66 16 96/50 L 96 02/24/20 04:10 02/24/20 04:10 02/24/20 04:10 02/24/20 04:10 02/24/20 04:10 Oxygen Flow Rate (L/min) [ 6 AMBULATION with Oxygen] Oxygen Flow Rate (L/min) 6 Oxygen Delivery Method Nasal Cannula Weight: 147 lb 14.389 oz Body Mass Index (BMI) 27.0 Intake and Output for Last 24 Hours 02/22/20 02/23/20 02/24/20 23:59 23:59 23:59 Intake Total 1210 / 1450 940 / 940 120 / 120 Output Total 2000 / 2500 2700 / 2700 Balance -790 / -1050 -1760 / -1760 120 / 120 Microbiology Past 72 Hours 02/18/20 14:45 Blood Culture (Wb) - Left Hand Blood Culture - Final No growth in 5 days. 02/18/20 14:45 Blood Culture (Wb) - Anticubital Left Blood Culture - Final No growth in 5 days. Laboratory Results 02/23/20 07:15: WBC 11.1 H, RBC 4.57, Hgb 13.1, Hct 38.9, MCV 85.1, MCH 28.7, MCHC 33.7, RDW Std Deviation 38.9, RDW Coeff of Misty 12.6, Plt Count 546 H, MPV 9.3, Neut % (Auto) Not Reportable, Absolute Neuts (auto) 7.0, Absolute Lymphs (auto) 3.32, Total Counted 100, Neutrophils % (Manual) 61, Band Neutrophils % 2, Lymphocytes % (Manual) 30, Monocytes % (Manual) 5, Eosinophils % (Manual) 1, Myelocytes % 1 H, Diff Path Review May foll, Reactive Lymphocytes 2+, Platelet Estimate MOD INC, RBC Morphology NORM C+C 02/23/20 07:15: Sodium 139, Potassium 3.4 L, Chloride 105, Carbon Dioxide 31.0, Anion Gap 3 L, BUN 22 H, Creatinine 0.43 L, Estim Creat Clear Calc 107.29, Est GFR (MDRD) Af Amer 191, Est GFR (MDRD) Non-Af 158, BUN/Creatinine Ratio 51.3 H, Glucose 106, Calcium 9.1, Total Bilirubin 0.40, AST 40 H, ALT 53, Alkaline Phosphatase 80, Total Protein 6.3 L, Albumin 2.4 L, Globulin 3.9, Albumin/Globulin Ratio 0.6 L 02/23/20 07:49: POC Glucose 108 02/23/20 11:47: POC Glucose 375 H 02/23/20 13:52: D-Dimer Quant (PE/DVT) 0.69 H* 02/23/20 17:20: POC Glucose 434 H 02/23/20 20:12: POC Glucose 426 H 02/24/20 06:32: WBC 13.4 H, RBC 4.50, Hgb 13.0, Hct 38.4, MCV 85.3, MCH 28.9, MCHC 33.9, RDW Std Deviation 39.4, RDW Coeff of Misty 12.7, Plt Count 539 H, MPV 9.0, Neut % (Auto) Not Reportable, Absolute Neuts (auto) Pending 02/24/20 06:32: Sodium Pending, Potassium Pending, Chloride Pending, Carbon Dioxide Pending, Anion Gap Pending, BUN Pending, Creatinine Pending, Est GFR (MDRD) Af Amer Pending, Est GFR (MDRD) Non-Af Pending, BUN/Creatinine Ratio Pending, Glucose Pending, Calcium Pending, Magnesium Pending, Total Bilirubin Pending, AST Pending, ALT Pending, Alkaline Phosphatase Pending, Total Protein Pending, Albumin Pending Current Medications Acetaminophen (Acetaminophen 325 Mg Tablet) 650 mg PO Q6H PRN PRN PRN Reason: Pain Score 1-10/Temp > 100.7 F Last Admin: 02/21/20 22:27 Dose: 650 mg Documented by: Cyclobenzaprine HCl (Cyclobenzaprine Hcl 10 Mg Tablet) 10 mg PO TID PRN PRN PRN Reason: SPASMS Dexamethasone (Dexamethasone 4 Mg Tablet) 6 mg PO DAILY [facility] Stop: 02/27/20 10:01 Last Admin: 02/23/20 07:58 Dose: 6 mg Documented by: Dextrose (Dextrose 50%-Water 25 Gm/50 Ml Disp.Syrin) 0 gm IV X1 PRN; Protocol PRN Reason: Hypoglycemia Enoxaparin Sodium (Enoxaparin 80 Mg/0.8 Ml Syringe) 70 mg SC BID [facility] Last Admin: 02/23/20 20:13 Dose: 70 mg Documented by: Glucagon (Glucagon 1 Mg/Ml Syringe) 1 mg IM .X1 PRN PRN Reason: Hypoglycemia Guaifenesin (Guaifenesin 10 Ml Udc (200mg/10ml)) 20 ml PO Q4H PRN PRN PRN Reason: COUGH Last Admin: 02/20/20 21:37 Dose: 20 ml Documented by: Insulin Glargine (Insulin Glargine 100 Units/Ml Pen) 40 units SC BID [facility] Last Admin: 02/23/20 20:14 Dose: 40 u Documented by: Insulin Human Lispro (Insulin Lispro 100 Unit/Ml Insuln.Pen) 0 unit SC ACHS [facility]; Protocol Last Admin: 02/23/20 20:14 Dose: 11 u Documented by: Insulin Human Lispro (Insulin Lispro 100 Unit/Ml Insuln.Pen) 20 unit SC TIDAC [facility] Last Admin: 02/23/20 17:22 Dose: 20 units Documented by: Linagliptin (Linagliptin 5 Mg Tablet) 5 mg PO DAILY [facility] Last Admin: 02/23/20 07:58 Dose: 5 mg Documented by: Lisinopril (Lisinopril 5 Mg Tablet) 5 mg PO DAILY [facility] Last Admin: 02/23/20 07:58 Dose: 5 mg Documented by: Meloxicam (Meloxicam 15 Mg Tablet) 15 mg PO DAILY [facility] Last Admin: 02/23/20 07:59 Dose: 15 mg Documented by: Ondansetron HCl (Ondansetron 4 Mg/2 Ml Vial) 4 mg IV Q8H PRN PRN PRN Reason: NAUSEA/VOMITING Pantoprazole Sodium (Pantoprazole Sodium 20 Mg Tablet) 20 mg PO DAILY PRN PRN PRN Reason: gerd Throat Lozenges (Benzocaine/Menthol 1 Lozenge) 1 lozenge MUCOUS MEM Q2H PRN PRN PRN Reason: SORE THROAT Last Admin: 02/20/20 21:36 Dose: 1 lozenge Documented by: STROKE Vital Signs/Narrative: Vital Signs Temp Pulse Resp BP Pulse Ox 02/24/20 04:10 98.1 F 66 16 96/50 L 96 Medical Necessity - Tobacco Use Smoking Status: Former smoker Tobacco Use: Cigarettes Assessment/Plan All Active Problems (Last Reviewed 02/18/20 @ 18:[address] Rambo Holland, DO) COVID-19 (Acute) Acute respiratory failure with hypoxia (Acute) The patient is a 64 y/o F w/ PMHx: Former Tobacco use, HTN, GERD, Diabetes mellitus type II, OA who presented to the [facility] ED on 02/18/20 with history of initial onset fatigue, malaise, dyspnea, fever on 02/10/2020 with Covid check on 02/14/2020 with discharge to home from ED at that time however clinically worsened requiring return. 1. Acute hypoxic respiratory failure secondary to acute COVID-19 Pneumonia: Patient with significant oxygenation requirements, requiring air Vo still at nights, unable to tolerate BiPAP therapy, imaging with bilateral pulmonary infiltrates, follow-up CTPA with no evidence of pulmonary emboli but confirmation bilateral pneumonia, continued on Decadron IV to oral regimen to complete total 10 day course, remdesivir to completion, IV Lasix daily with dose administered 02/24/20, 02/23/20 repeat D-dimer 0.69, per discussion with Pulmonary given ongoing hypoxia/high supplementation needs and failure upon oxygenation assessment transitioned to therapeutic lovenox regimen, will plan continued diuresis and repeat 02/25/20 oxygenation assessment and if remains 6L NC with recovery ability would discharge to home. If worsens may consider Pulmonary consultation. Infectious consulted. 2. Hypokalemia: 02/23/20 potassium 3.4, magnesium level obtained and noted to be 1.4, supplementation administered with repeat 1.8, 02/24/20 K 3.8. Continue to trend given lasix usage as noted. 3. Hypertension: Continue home regimen including lisinopril with hold parameters, IV Lasix usage as noted above with hold parameters as needed, PRN hydralazine. 4. Diabetes mellitus type II: 02/22/20 increased Lantus to 40 units twice daily given elevated blood sugars with steroid usage, ongoing elevated blood sugars but early a.m. 108, thus held on further increase; however, continued elevations 02/24/20, will increase lantus to 45 u BID, continued TID scheduled and overlapping high dose ISS. Transitioned from IV to oral decadron with 3 additional doses remaining. 5. GERD: We will continue PPI. 6. DVT prophylaxis: SCDs, Lovenox. 7. CODE STATUS: Full code. Inpatient E&M: 52487 Subs Hosp L2
[2020-02-24 07:32] LABS: ALB/GLOB Ratio 0.6 RATIO (0.9-2.4); AST(SGOT) 46 U/L (15-37); Alanine Aminotransfer ALT/SGPT 58 U/L (13-56); Albumin, Serum 2.4 g/dL (3.2-5.0); Alkaline Phosphatase 86 U/L (45-117); Anion Gap 5 (5-15); BUN 19 mg/dL (7-18); BUN/Creat Ratio 40.9 RATIO (10-20); Calcium,Total 9.1 mg/dL (8.5-10.1); Chloride 102 mmol/L (98-107); Creatinine, Serum 0.46 mg/dL (0.55-1.02); EST Glomerular Filtration Rate 144 mL/min (>60); Est Glom Filt Rate - Afr Amer 174 mL/min (>60); Estimated Creatinine Clearance 100.29 ml/min; Glucose 185 mg/dL (74-106); Magnesium 1.8 mg/dL (1.6-2.6); Potassium 3.8 mmol/L (3.5-5.1); Protein, Total 6.4 g/dL (6.4-8.2); Sodium Level 137 mmol/L (136-145)
[2020-02-24 07:49] LABS: Eosinophil 2 % (0-5); Lymphocyte 23 % (19-41); Monocyte 6 % (0-10); Neutrophil-Band 3 % (0-5); Neutrophil-Segmented 65 % (47-70); Promyelocyte 1 (0-0); Total Cells Counted 100 (MANUAL DIFF)
[2020-02-24 07:51] LABS: Absolute Neutrophil Count 9.1 X10^3/uL (2.0-7.7)
[2020-02-24 07:52] LABS: Absolute Lymphocyte Count 3.07 X10^3/uL (0.83-4.51); Platelet Estimate SLT INC (ADEQ); Reactive Lymphocyte 2+; Red Cell Morphology NORM C+C NORMAL (NORM C&C)
[2020-02-24] MEDS: Insulin Lispro 100 UNIT/ML INSULN.PEN 20 UNIT SC ×4 (08:15→17:41)
[2020-02-24] MEDS: Insulin Lispro 100 UNIT/ML INSULN.PEN SC ×4 (08:15→21:38)
[2020-02-24] MEDS: dexAMETHasone 4 MG Tablet 6 MG PO (08:17)
[2020-02-24] MEDS: Enoxaparin 80 MG/0.8 ML Syringe 70 MG SC ×2 (08:18→21:40)
[2020-02-24] MEDS: Meloxicam 15 MG Tablet PO (08:19)
[2020-02-24] MEDS: LINAGLIPTIN 5 MG TABLET PO (08:20)
[2020-02-24 08:30] LABS: Bedside Glucose 162 mg/dL (70-110)
[2020-02-24 13:21] LABS: Bedside Glucose 420 mg/dL (70-110)
[2020-02-24 13:21] LABS: Bedside Glucose 498 mg/dL (70-110)
[2020-02-24] MEDS: Insulin Lispro 100 UNIT/ML INSULN.PEN 30 UNIT SC (14:30)
[2020-02-24 14:41] LABS: Bedside Glucose 456 mg/dL (70-110)
[2020-02-24 15:46] LABS: Bedside Glucose 332 mg/dL (70-110)
[2020-02-24 16:02] LABS: Mucous, Urine 0 SEEN /hpf (<or=2+); Red Blood Cells-Urine 0 SEEN /hpf (0-5); Squamous Epithelial Cells - UA 0 SEEN /hpf (5-10)
[2020-02-24] MEDS: Insulin Lispro 100 UNIT/ML INSULN.PEN 10 UNIT SC (16:10)
[2020-02-24 16:18] LABS: Color, Urine Yellow (Yellow); Glucose, Dipstick 1000 mg/dl (Normal); Ketone-Dipstick 5 mg/dl (Negative); Leukocyte Esterase-Dipstick Negative /ul (Negative); Nitrite-Dipstick Positive (Negative); Occult Blood-Urine 10 /ul (Negative); Protein-Dipstick Negative (Negative); Urine Bilirubin Dipstick Negative (Negative); Urine Clarity Sl. Cloudy (Clear); Urine Urobilinogen Normal (Normal)
[2020-02-24 16:18] LABS: Anion Gap 7 (5-15); BUN 24 mg/dL (7-18); BUN/Creat Ratio 38.6 RATIO (10-20); Calcium,Total 9.4 mg/dL (8.5-10.1); Chloride 98 mmol/L (98-107); Creatinine, Serum 0.62 mg/dL (0.55-1.02); EST Glomerular Filtration Rate 103 mL/min (>60); Est Glom Filt Rate - Afr Amer 125 mL/min (>60); Estimated Creatinine Clearance 74.41 ml/min; Glucose 324 mg/dL (74-106); Potassium 4.4 mmol/L (3.5-5.1); Sodium Level 133 mmol/L (136-145)
[2020-02-24 16:22] LABS: Bacteria 2+ /hpf (None Seen); White Blood Cells 0-5 SEEN /hpf (0-5)
[2020-02-24 17:51] LABS: Bedside Glucose 189 mg/dL (70-110)
[2020-02-24 18:50] LABS: Bedside Glucose 171 mg/dL (70-110)
[2020-02-24 22:00] LABS: Bedside Glucose 225 mg/dL (70-110)
[2020-02-25 03:36] VITALS: BP 111/60; PULSE 60; RESP 18; TEMP 36.7; O2SAT 95
[2020-02-25 06:00] LABS: Hematocrit 37.5 % (37-47); Hemoglobin 12.9 g/dL (12.0-15.0); Mean Corp Hgb Conc 34.4 g/dL (32-36); Mean Corpuscular Hgb 30.4 pg (27.0-32.0); Mean Corpuscular Volume 88.2 fL (81-99); Mean Platelet Vol. 9.2 fl (6.2-12.0); POSITIVE COUNT YES; POSITIVE MORPHOLOGY YES; Platelet Count 521 K/mm3 (150-450); RBC Distribution Width CV 13.2 % (11.6-14.6); RBC Distribution Width SD 40.9 fl (35.1-43.9); Red Blood Count 4.25 M/mm3 (4.2-5.4); White Blood Count 12.9 K/mm3 (4.4-11.0)
[2020-02-25 06:12] LABS: Differential Indicated MANUAL DIFF
[2020-02-25 06:33] LABS: ALB/GLOB Ratio 0.6 RATIO (0.9-2.4); AST(SGOT) 69 U/L (15-37); Alanine Aminotransfer ALT/SGPT 71 U/L (13-56); Albumin, Serum 2.4 g/dL (3.2-5.0); Alkaline Phosphatase 81 U/L (45-117); Anion Gap 4 (5-15); BUN 22 mg/dL (7-18); Calcium,Total 9.2 mg/dL (8.5-10.1); Chloride 103 mmol/L (98-107); Creatinine, Serum 0.46 mg/dL (0.55-1.02); EST Glomerular Filtration Rate 147 mL/min (>60); Est Glom Filt Rate - Afr Amer 177 mL/min (>60); Estimated Creatinine Clearance 100.29 ml/min; Globulin 3.8 g/dL (2.2-4.2); Glucose 145 mg/dL (74-106); Potassium 4.3 mmol/L (3.5-5.1); Protein, Total 6.2 g/dL (6.4-8.2); Sodium Level 138 mmol/L (136-145)
[2020-02-25 06:53] LABS: Absolute Neutrophil Count 9.2 X10^3/uL (2.0-7.7); Lymphocyte 23 % (19-41); Metamyelocyte 2 % (0-1); Monocyte 4 % (0-10); Neutrophil-Segmented 71 % (47-70); Total Cells Counted 100 (MANUAL DIFF)
[2020-02-25 06:54] LABS: Absolute Lymphocyte Count 2.97 X10^3/uL (0.83-4.51); Platelet Estimate ADEQUATE (ADEQ); Red Cell Morphology NORM C+C NORMAL (NORM C&C)
[2020-02-25 07:40] LABS: Bedside Glucose 130 mg/dL (70-110)
[2020-02-25 09:00] VITALS: O2SAT 95
[2020-02-25 09:05] VITALS: BP 110/61; PULSE 76; RESP 18; TEMP 36.6; O2SAT 95
[2020-02-25] MEDS: Insulin Lispro 100 UNIT/ML INSULN.PEN 20 UNIT SC ×3 (09:10→16:44)
[2020-02-25] MEDS: Enoxaparin 80 MG/0.8 ML Syringe 70 MG SC ×2 (09:23→20:32)
[2020-02-25] MEDS: Lisinopril 5 MG Tablet PO (09:24)
[2020-02-25] MEDS: 0.9% Saline Lock 10 ML Syringe IV (09:24)
[2020-02-25] MEDS: Meloxicam 15 MG Tablet PO (09:24)
[2020-02-25] MEDS: dexAMETHasone 4 MG Tablet 6 MG PO (09:24)
[2020-02-25] MEDS: LINAGLIPTIN 5 MG TABLET PO (09:24)
[2020-02-25 09:29] VITALS: O2SAT 86; O2SAT 91; O2SAT 93
[2020-02-25 09:35] LABS: Bedside Glucose 221 mg/dL (70-110)
[2020-02-25] MEDS: Insulin Lispro 100 UNIT/ML INSULN.PEN SC ×3 (11:27→20:36)
[2020-02-25 11:51] LABS: Bedside Glucose 332 mg/dL (70-110)
[2020-02-25 12:10] LABS: Pathologist Review Reviewed
[2020-02-25 12:23] LABS: Pathologist Review Reviewed
[2020-02-25 12:27] LABS: Pathologist Review Reviewed
--- NOTE | 2020-02-25 13:22 | PN_ITS ---
Patient Problems: Active and Suspected Problems (Last Reviewed 02/18/20 @ 18:[address] Rambo Holland, DO) COVID-19 (Acute) Acute respiratory failure with hypoxia (Acute) Reason for Visit: COVID 19 Subjective: Breathing well with oxygen. Vitals/I&O's: Vital Signs Temp Pulse Resp BP Pulse Ox 36.6 C 76 18 110/61 93 02/25/20 09:05 02/25/20 09:05 02/25/20 09:05 02/25/20 09:05 02/25/20 09:29 Oxygen Flow Rate (L/min) [ 5 AMBULATION with Oxygen] Oxygen Flow Rate (L/min) 5 Oxygen Delivery Method Nasal Cannula Weight: 67.086 kg Body Mass Index (BMI) 27.0 Intake and Output for Last 24 Hours 02/23/20 02/24/20 02/25/20 23:59 23:59 23:59 Intake Total 940 / 940 240 / 840 1060 / 1060 Output Total 2700 / 2700 600 / 600 Balance -1760 / -1760 -360 / 240 1060 / 1060 General: Alert, No apparent distress HEENT: Atraumatic, Normocephalic Oral: Moist Mucosa, No Gingival or Mucosal Lesions/ Ulcerations Neck: No Nodes, Thyroid Normal Size and Texture Lungs: Clear to auscultation, Normal air movement, No rhonchi, No wheeze, No rales Cardiovascular: Regular rate, Regular Rhythm, Normal S1, Normal S2, No murmurs Abdomen: Bowel Sounds Present, Soft, Non Tender, Non-Distended Extremities: No edema, No Calf Tenderness Skin: No rashes, No breakdown Psych/Mental Status: Normal Affect, Appropriate Microbiology Past 72 Hours 02/18/20 14:45 Blood Culture (Wb) - Left Hand Blood Culture - Final No growth in 5 days. 02/18/20 14:45 Blood Culture (Wb) - Anticubital Left Blood Culture - Final No growth in 5 days. Laboratory Results 02/23/20 07:15: Diff Path Review Reviewed 02/24/20 06:32: Diff Path Review Reviewed 02/24/20 14:12: POC Glucose 456 H* 02/24/20 14:41: Urine Color Yellow, Urine Clarity Sl. Cloudy, Urine pH 7.0, Ur Specific Christine 1.010, Urine Protein Negative, Urine Glucose (UA) 1000 H, Urine Ketones 5 H, Urine Occult Blood 10 H, Urine Nitrite Positive H, Urine Bilirubin Negative, Urine Urobilinogen Normal, Ur Leukocyte Esterase Negative, Urine RBC 0 SEEN, Urine WBC 0-5 SEEN, Ur Squamous Epith Cells 0 SEEN, Urine Bacteria 2+, Urine Mucus 0 SEEN 02/24/20 15:40: POC Glucose 332 H 02/24/20 15:45: Sodium 133 L, Potassium 4.4, Chloride 98, Carbon Dioxide 28.0, Anion Gap 7, BUN 24 H, Creatinine 0.62, Estim Creat Clear Calc 74.41, Est GFR (MDRD) Af Amer 125, Est GFR (MDRD) Non-Af 103, BUN/Creatinine Ratio 38.6 H, Glucose 324 H, Calcium 9.4 02/24/20 15:45: Acetone Level NEGATIVE 02/24/20 17:35: POC Glucose 189 H 02/24/20 18:46: POC Glucose 171 H 02/24/20 21:31: POC Glucose 225 H 02/25/20 05:24: WBC 12.9 H, RBC 4.25, Hgb 12.9, Hct 37.5, MCV 88.2, MCH 30.4, MCHC 34.4, RDW Std Deviation 40.9, RDW Coeff of Misty 13.2, Plt Count 521 H, MPV 9.2, Neut % (Auto) Not Reportable, Absolute Neuts (auto) 9.2 H, Absolute Lymphs (auto) 2.97, Total Counted 100, Neutrophils % (Manual) 71 H, Lymphocytes % (Manual) 23, Monocytes % (Manual) 4, Metamyelocytes % 2 H, Diff Path Review Reviewed, Platelet Estimate ADEQUATE, RBC Morphology NORM C+C 02/25/20 05:24: Sodium 138, Potassium 4.3, Chloride 103, Carbon Dioxide 31.0, Anion Gap 4 L, BUN 22 H, Creatinine 0.46 L, Estim Creat Clear Calc 100.29, Est GFR (MDRD) Af Amer 177, Est GFR (MDRD) Non-Af 147, BUN/Creatinine Ratio 48.0 H, Glucose 145 H, Calcium 9.2, Total Bilirubin 0.40, AST 69 H, ALT 71 H, Alkaline Phosphatase 81, Total Protein 6.2 L, Albumin 2.4 L, Globulin 3.8, Albumin/Globulin Ratio 0.6 L 02/25/20 07:08: POC Glucose 130 H 02/25/20 09:19: POC Glucose 221 H 02/25/20 11:25: POC Glucose 332 H Current Medications Acetaminophen (Acetaminophen 325 Mg Tablet) 650 mg PO Q6H PRN PRN PRN Reason: Pain Score 1-10/Temp > 100.7 F Last Admin: 02/21/20 22:27 Dose: 650 mg Documented by: Cyclobenzaprine HCl (Cyclobenzaprine Hcl 10 Mg Tablet) 10 mg PO TID PRN PRN PRN Reason: SPASMS Dexamethasone (Dexamethasone 4 Mg Tablet) 6 mg PO DAILY [facility] Stop: 02/27/20 10:01 Last Admin: 02/25/20 09:24 Dose: 6 mg Documented by: Dextrose (Dextrose 50%-Water 25 Gm/50 Ml Disp.Syrin) 0 gm IV X1 PRN; Protocol PRN Reason: Hypoglycemia Enoxaparin Sodium (Enoxaparin 80 Mg/0.8 Ml Syringe) 70 mg SC BID [facility] Last Admin: 02/25/20 09:23 Dose: 70 mg Documented by: Glucagon (Glucagon 1 Mg/Ml Syringe) 1 mg IM .X1 PRN PRN Reason: Hypoglycemia Guaifenesin (Guaifenesin 10 Ml Udc (200mg/10ml)) 20 ml PO Q4H PRN PRN PRN Reason: COUGH Last Admin: 02/20/20 21:37 Dose: 20 ml Documented by: Insulin Glargine (Insulin Glargine 100 Units/Ml Pen) 45 units SC BID [facility] Last Admin: 02/25/20 09:21 Dose: 45 u Documented by: Insulin Human Lispro (Insulin Lispro 100 Unit/Ml Insuln.Pen) 0 unit SC ACHS [facility]; Protocol Last Admin: 02/25/20 11:27 Dose: 8 u Documented by: Insulin Human Lispro (Insulin Lispro 100 Unit/Ml Insuln.Pen) 20 unit SC TIDAC [facility] Last Admin: 02/25/20 11:28 Dose: 20 units Documented by: Linagliptin (Linagliptin 5 Mg Tablet) 5 mg PO DAILY [facility] Last Admin: 02/25/20 09:24 Dose: 5 mg Documented by: Lisinopril (Lisinopril 5 Mg Tablet) 5 mg PO DAILY [facility] Last Admin: 02/25/20 09:24 Dose: 5 mg Documented by: Meloxicam (Meloxicam 15 Mg Tablet) 15 mg PO DAILY [facility] Last Admin: 02/25/20 09:24 Dose: 15 mg Documented by: Ondansetron HCl (Ondansetron 4 Mg/2 Ml Vial) 4 mg IV Q8H PRN PRN PRN Reason: NAUSEA/VOMITING Pantoprazole Sodium (Pantoprazole Sodium 20 Mg Tablet) 20 mg PO DAILY PRN PRN PRN Reason: gerd Throat Lozenges (Benzocaine/Menthol 1 Lozenge) 1 lozenge MUCOUS MEM Q2H PRN PRN PRN Reason: SORE THROAT Last Admin: 02/20/20 21:36 Dose: 1 lozenge Documented by: STROKE Vital Signs/Narrative: Vital Signs Pulse Ox Pulse Ox Pulse Ox 02/25/20 09:29 86 93 91 Medical Necessity - Tobacco Use Smoking Status: Former smoker Tobacco Use: Cigarettes Assessment/Plan All Active Problems (Last Reviewed 02/18/20 @ 18:[address] Rambo Holland, DO) COVID-19 (Acute) Acute respiratory failure with hypoxia (Acute) 1. Acute COVID-19 pneumonia: * Symptoms began on 09 February * Treatment will be dexamethasone for 10days first dose was given the . * completed rem-d 2. Acute hypoxic respiratory failure * Patient was 88% on room air. * Wean oxygen as tolerated * Patient requires home oxygen prior to discharge 3. Diabetes mellitus type 2 * Continue with basal insulin * Add sliding scale as it is anticipated the patient blood sugar go up with the dexamethasone. 4. VTE prophylaxis: High risk. Enoxaparin. 5. Advanced care planning: Discussed CPR and intubation with the patient. She is undecided at this time. I told the patient that she is she is undecided that I would recommend she be full CODE STATUS explained what that meant to her. She has no questions and she is aware that she can change her CODE STATUS at any point during this hospitalization. Inpatient E&M: [id number] [facility] Hosp L2
[2020-02-25 15:05] VITALS: BP 102/60; PULSE 76; RESP 18; TEMP 36.7; O2SAT 95
--- NOTE | 2020-02-25 15:59 | CHAPLAIN ---
Type of Pastoral Visit ___ Initial Visit ___ Follow-up Visit ___ On-call Visit ___ General Patient Visit ___ Spiritual Assessment ___ Family Conference ___ Bereavement ___ Rapid Response ___ Code Blue _x__ Other (describe below) Pastoral Care Referral From ___ Patient _x__ Family ___ Nurse ___ Physician ___ Aircraft Line Assembler ___ Section Leader ___ Other (describe below) Sacrament/Intervention _x__ Active listening ___ Anointing ___ Hinduism ___ Bereavement ___ Communion ___ Samantha exploration ___ ___ Life review _x__ Prayer ___ Reconciliation ___ Sacrament of Sick ___ Supportive presence ___ Wedding ___ Other (describe below) Pastoral Comments call into room on the phone by this bargain table clerk as patient is in isolation; pt answered the phone and welcomed support; pt states she is feeling much better now and is very hopeful; pt welcomes prayer; no other needs at this time
[2020-02-25 17:50] LABS: Bedside Glucose 367 mg/dL (70-110)
[2020-02-25] MEDS: Furosemide 40 MG/4 ML Vial IV (18:26)
[2020-02-25 21:05] VITALS: BP 94/63; PULSE 81; RESP 18; TEMP 36.6; O2SAT 97
[2020-02-25 21:15] LABS: Bedside Glucose 474 mg/dL (70-110)
[2020-02-26] VITALS (8 sets, daily range): BP systolic 94–104; BP diastolic 56–62; PULSE 67–83; RESP 14–20; TEMP 36.6–37; O2SAT 90–96
[2020-02-26 06:46] LABS: Bedside Glucose 168 mg/dL (70-110)
[2020-02-26] MEDS: dexAMETHasone 4 MG Tablet 6 MG PO (08:28)
[2020-02-26] MEDS: Lisinopril 5 MG Tablet PO (08:29)
[2020-02-26] MEDS: Enoxaparin 80 MG/0.8 ML Syringe 70 MG SC ×2 (08:29→21:50)
[2020-02-26] MEDS: Furosemide 40 MG/4 ML Vial IV ×2 (08:29→17:54)
[2020-02-26] MEDS: Meloxicam 15 MG Tablet PO (08:29)
[2020-02-26] MEDS: LINAGLIPTIN 5 MG TABLET PO (08:29)
[2020-02-26] MEDS: Insulin Lispro 100 UNIT/ML INSULN.PEN SC ×4 (08:31→21:58)
[2020-02-26] MEDS: Insulin Lispro 100 UNIT/ML INSULN.PEN 20 UNIT SC ×3 (08:32→16:08)
[2020-02-26 12:51] LABS: Bedside Glucose 399 mg/dL (70-110)
--- NOTE | 2020-02-26 14:06 | PN_ITS ---
Patient Problems: Active and Suspected Problems (Last Reviewed 02/18/20 @ 18:[address] Rambo Holland, DO) COVID-19 (Acute) Acute respiratory failure with hypoxia (Acute) Reason for Visit: COVID 19 Subjective: Breathing better, though still with SMITH. She plans to return home with family who can assist her with ADLs and iADLs, if needed. Vitals/I&O's: Vital Signs Temp Pulse Resp BP Pulse Ox 36.6 C 69 18 104/62 95 02/26/20 08:24 02/26/20 08:24 02/26/20 08:24 02/26/20 08:24 02/26/20 12:51 Oxygen Flow Rate (L/min) [ 2 AMBULATION with Oxygen] Oxygen Flow Rate (L/min) 3 Oxygen Delivery Method Nasal Cannula Weight: 67.086 kg Body Mass Index (BMI) 27.0 Intake and Output for Last 24 Hours 02/24/20 02/25/20 02/26/20 23:59 23:59 23:59 Intake Total 240 / 840 1780 / 1780 Output Total 600 / 600 450 / 450 Balance -360 / 240 1330 / 1330 General: Alert, No apparent distress HEENT: Atraumatic, Normocephalic Oral: Moist Mucosa, No Gingival or Mucosal Lesions/ Ulcerations Neck: No Nodes, Thyroid Normal Size and Texture Lungs: Normal air movement, - - bibasilar crackles. Cardiovascular: Regular rate, Regular Rhythm, Normal S1, Normal S2, No murmurs Abdomen: Bowel Sounds Present, Soft, Non Tender, Non-Distended Extremities: No edema, No Calf Tenderness Psych/Mental Status: Normal Affect, Appropriate Microbiology Past 72 Hours 02/24/20 14:41 Urine, Random Urine Culture - Preliminary GNR lactose certified recreational therapist 02/18/20 14:45 Blood Culture (Wb) - Left Hand Blood Culture - Final No growth in 5 days. 02/18/20 14:45 Blood Culture (Wb) - Anticubital Left Blood Culture - Final No growth in 5 days. Laboratory Results 02/25/20 16:43: POC Glucose 367 H 02/25/20 20:35: POC Glucose 474 H* 02/26/20 06:41: POC Glucose 168 H 02/26/20 12:28: POC Glucose 399 H Current Medications Acetaminophen (Acetaminophen 325 Mg Tablet) 650 mg PO Q6H PRN PRN PRN Reason: Pain Score 1-10/Temp > 100.7 F Last Admin: 02/21/20 22:27 Dose: 650 mg Documented by: Cyclobenzaprine HCl (Cyclobenzaprine Hcl 10 Mg Tablet) 10 mg PO TID PRN PRN PRN Reason: SPASMS Dexamethasone (Dexamethasone 4 Mg Tablet) 6 mg PO DAILY [facility] Stop: 02/27/20 10:01 Last Admin: 02/26/20 08:28 Dose: 6 mg Documented by: Dextrose (Dextrose 50%-Water 25 Gm/50 Ml Disp.Syrin) 0 gm IV X1 PRN; Protocol PRN Reason: Hypoglycemia Enoxaparin Sodium (Enoxaparin 80 Mg/0.8 Ml Syringe) 70 mg SC BID [facility] Last Admin: 02/26/20 08:29 Dose: 70 mg Documented by: Furosemide (Furosemide 40 Mg/4 Ml Vial) 40 mg IV BID@1000,1800 [facility] Last Admin: 02/26/20 08:29 Dose: 40 mg Documented by: Glucagon (Glucagon 1 Mg/Ml Syringe) 1 mg IM .X1 PRN PRN Reason: Hypoglycemia Guaifenesin (Guaifenesin 10 Ml Udc (200mg/10ml)) 20 ml PO Q4H PRN PRN PRN Reason: COUGH Last Admin: 02/20/20 21:37 Dose: 20 ml Documented by: Insulin Glargine (Insulin Glargine 100 Units/Ml Pen) 45 units SC BID [facility] Last Admin: 02/26/20 08:33 Dose: 45 u Documented by: Insulin Human Lispro (Insulin Lispro 100 Unit/Ml Insuln.Pen) 0 unit SC ACHS [facility]; Protocol Last Admin: 02/26/20 12:47 Dose: 10 u Documented by: Insulin Human Lispro (Insulin Lispro 100 Unit/Ml Insuln.Pen) 20 unit SC TIDAC [facility] Last Admin: 02/26/20 12:48 Dose: 20 units Documented by: Linagliptin (Linagliptin 5 Mg Tablet) 5 mg PO DAILY [facility] Last Admin: 02/26/20 08:29 Dose: 5 mg Documented by: Lisinopril (Lisinopril 5 Mg Tablet) 5 mg PO DAILY [facility] Last Admin: 02/26/20 08:29 Dose: 5 mg Documented by: Meloxicam (Meloxicam 15 Mg Tablet) 15 mg PO DAILY [facility] Last Admin: 02/26/20 08:29 Dose: 15 mg Documented by: Ondansetron HCl (Ondansetron 4 Mg/2 Ml Vial) 4 mg IV Q8H PRN PRN PRN Reason: NAUSEA/VOMITING Pantoprazole Sodium (Pantoprazole Sodium 20 Mg Tablet) 20 mg PO DAILY PRN PRN PRN Reason: gerd Throat Lozenges (Benzocaine/Menthol 1 Lozenge) 1 lozenge MUCOUS MEM Q2H PRN PRN PRN Reason: SORE THROAT Last Admin: 02/20/20 21:36 Dose: 1 lozenge Documented by: STROKE Vital Signs/Narrative: Vital Signs Pulse Ox Pulse Ox Pulse Ox Pulse Ox 02/26/20 12:51 90 95 93 02/26/20 11:01 96 Medical Necessity - Tobacco Use Smoking Status: Former smoker Tobacco Use: Cigarettes Assessment/Plan All Active Problems (Last Reviewed 02/18/20 @ 18:[address] Rambo Holland, DO) COVID-19 (Acute) Acute respiratory failure with hypoxia (Acute) 1. Acute COVID-19 pneumonia: * Symptoms began on 09 February * Treatment will be dexamethasone for 10days first dose was given the . * completed rem-d 2. Acute hypoxic respiratory failure * Patient was 88% on room air. Currently 90% on room air, 95% with activity. * Wean oxygen as tolerated * Patient requires home oxygen upon discharge * on furosemide challenge 3. Diabetes mellitus type 2 * Continue with basal insulin * Add sliding scale as it is anticipated the patient blood sugar go up with the dexamethasone. 4. VTE prophylaxis: High risk. Enoxaparin. 5. Advanced care planning: Discussed CPR and intubation with the patient. She is undecided at this time. I told the patient that she is she is undecided that I would recommend she be full CODE STATUS explained what that meant to her. She has no questions and she is aware that she can change her CODE STATUS at any point during this hospitalization. Plan for discharge home on 02/26, if stable and improved Inpatient E&M: [id number] [facility] Hosp L2
[2020-02-26 16:50] LABS: Bedside Glucose 438 mg/dL (70-110)
[2020-02-26] MEDS: 0.9% Saline Lock 10 ML Syringe IV (17:54)
[2020-02-26 22:21] LABS: Bedside Glucose 396 mg/dL (70-110)
[2020-02-27 02:15] VITALS: BP 113/63; PULSE 70; RESP 20; TEMP 36.7; O2SAT 95
[2020-02-27 04:00] VITALS: PULSE 68; RESP 20; O2SAT 95
[2020-02-27 06:27] LABS: Anion Gap 5 (5-15); BUN 27 mg/dL (7-18); BUN/Creat Ratio 50.1 RATIO (10-20); Calcium,Total 9.4 mg/dL (8.5-10.1); Chloride 98 mmol/L (98-107); Creatinine, Serum 0.54 mg/dL (0.55-1.02); EST Glomerular Filtration Rate 122 mL/min (>60); Est Glom Filt Rate - Afr Amer 147 mL/min (>60); Estimated Creatinine Clearance 85.43 ml/min; Glucose 137 mg/dL (74-106); Potassium 3.8 mmol/L (3.5-5.1); Sodium Level 134 mmol/L (136-145)
[2020-02-27 07:50] VITALS: BP 95/65; PULSE 72; RESP 18; TEMP 36.4; O2SAT 96
[2020-02-27] MEDS: dexAMETHasone 4 MG Tablet 6 MG PO (08:58)
[2020-02-27] MEDS: Meloxicam 15 MG Tablet PO (08:58)
[2020-02-27] MEDS: LINAGLIPTIN 5 MG TABLET PO (08:58)
[2020-02-27] MEDS: Lisinopril 5 MG Tablet PO (08:58)
[2020-02-27] MEDS: Furosemide 40 MG/4 ML Vial IV (08:59)
[2020-02-27] MEDS: Enoxaparin 80 MG/0.8 ML Syringe 70 MG SC (08:59)
[2020-02-27] MEDS: Insulin Lispro 100 UNIT/ML INSULN.PEN 20 UNIT SC ×2 (09:00→11:29)
[2020-02-27 10:58] VITALS: O2SAT 84; O2SAT 90; O2SAT 91
--- NOTE | 2020-02-27 11:28 | DCINST_ITS ---
- Discharge Diagnoses Current Active Problems: Current Active and Chronic Problems (Last Reviewed 02/18/20 @ 18:[address] Rambo Holland, DO) COVID-19 (Acute) Acute respiratory failure with hypoxia (Acute) You will use the following diet at home:: Calorie/Carbohydrate Controlled (specify 1200, 1400, etc) - 1800 Your food should be the consistency of: Regular Call your doctor if you observe: Fever of 101 or Higher, Shortness of breath Additional Instructions: Self isolate for at least 10 days since symptoms began 02/10/2020-03/02/2020 AND at least one day (24 hours) have passed since resolution of fever without the use of fever-reducing agents AND improvement of symptoms (e.g., cough, shortness of breath) When around people in the same room, wear a face mask. Individuals also in the room should wear a mask. If possible, use a different bathroom and bedroom. Perform adequate hand hygiene. Avoid sharing dishes, glasses, etc. Family members with close contact with you and/or postive for COVID-19 should follow these instructions. Allergies/Adverse Reactions: Allergies No Known Allergies Allergy (Unverified 12/12/17 09:20) Medications to take at Discharge meloxicam 15 mg tablet 15 mg PO DAILY 12/12/17 metformin 1,000 mg tablet 1,000 mg PO BID 12/12/17 Cyclobenzaprine HCl 10 mg PO TID PRN PRN 02/18/20 Insulin Detemir [Levemir Flextouch] 34 unit SQ QHS 02/18/20 Lisinopril [Zestril] 5 mg PO DAILY 02/18/20 Pantoprazole Sodium [Protonix] 20 mg PO DAILY PRN PRN 02/18/20 Sitagliptin Phosphate [Januvia] 100 mg PO DAILY 02/18/20 Smz/Tmp Ds [Bactrim Ds] 1 tab PO BID #10 tab 02/27/20 The following prescriptions were given: Smz/Tmp Ds [Bactrim Ds] 1 tab PO BID #10 tab Transmission Status: Pending to [facility] Primary Care Physician: [facility] Rosina Caballero [Primary Care Provider] - Within 2 Weeks Test Results: Test results from this visit will be discussed in further detail at your follow- up appointment, if applicable. Proposed Discharge Date: 02/27/20
[2020-02-27] MEDS: Insulin Lispro 100 UNIT/ML INSULN.PEN SC (11:29)
--- NOTE | 2020-02-27 11:32 | DS.PCM_ITS ---
Discharge Date and Diagnosis - Problem List Patient Problems: Active and Suspected Problems (Last Reviewed 02/18/20 @ 18:[address] Rambo Holland DO) COVID-19 (Acute) Acute respiratory failure with hypoxia (Acute) Date of Admission: 02/18/20 Date of Discharge: 02/27/20 - Primary Discharge Diagnosis Acute Problems: Active Problems (Last Reviewed 02/18/20 @ 18:[address] Rambo Holland DO) 1. Acute COVID-19 pneumonia: * Symptoms began on 09 February * Treatment will be dexamethasone for 10days first dose was given today, the . Patient will also be on 5 days of remdesivir. * Consult infectious disease to see if the patient would be a candidate for convalescent plasma 2. Acute hypoxic respiratory failure * Admission was 88% on room air. Currently 97% on 5 L * Wean oxygen as tolerated * Home oxygen with activity. 3. Klebsiella UTI: Bactrim Hospital Course and Treatment Imaging Results: Clinical Impression(s) from Imaging Studies Chest CTA 02/18/20 16:12 IMPRESSION: CTA chest examination, without a demonstrated pulmonary embolism or arterial dissection. Bilateral pneumonia. Electronically Signed: Edward Mays MD at 16:50 EST , Service support , ID: [email or web address] Operations: None Procedures: None Summary of Care Provided: The patient is a 64 year old F presents with shortness of breath. Patient had acute hypoxic respiratory failure as with 80% on room air and did require high flow oxygen subsequently. Patient's oxygen nation did reduce but still required oxygen upon discharge., With activity, patient dropped down to 84% on room air but at rest, patient was around 90% on room air. Patient completed course of treatment with dexamethasone as well as remdesivir. Patient will be discharged home in stable condition. Patient also found to have urinary tract infection on her urinalysis and received 5 days of trimethoprim/sulfamethoxazole. [] Patient Problems: Active and Suspected Problems (Last Reviewed 02/18/20 @ 18:[address] Rambo Holland DO) COVID-19 (Acute) Acute respiratory failure with hypoxia (Acute) - Physical Exam Vitals/I&O's: Vital Signs Temp Pulse Resp BP Pulse Ox 36.4 C L 72 18 95/65 91 02/27/20 07:50 02/27/20 07:50 02/27/20 07:50 02/27/20 07:50 02/27/20 10:58 Oxygen Flow Rate (L/min) [ 0 AMBULATING on Room Air] Oxygen Flow Rate (L/min) [At 0 REST on Room Air] Oxygen Flow Rate (L/min) [ 3 AMBULATION with Oxygen] Oxygen Flow Rate (L/min) 2 Oxygen Delivery Method Nasal Cannula Weight: 67.086 kg Body Mass Index (BMI) 27.0 Intake and Output for Last 24 Hours 02/25/20 02/26/20 02/27/20 23:59 23:59 23:59 Intake Total 1780 / 1780 580 / 580 Output Total 450 / 450 Balance 1330 / 1330 580 / 580 General: Alert, No apparent distress HEENT: Atraumatic, Normocephalic Oral: Moist Mucosa, No Gingival or Mucosal Lesions/ Ulcerations Neck: No Nodes, Thyroid Normal Size and Texture Lungs: Clear to auscultation, Normal air movement, No rhonchi, No wheeze Cardiovascular: Regular rate, Regular Rhythm, Normal S1, Normal S2 Abdomen: Bowel Sounds Present, Soft, Non Tender, Non-Distended, No Hepato- splenomegaly Extremities: No edema, No Calf Tenderness Psych/Mental Status: Normal Affect, Appropriate Microbiology Past 72 Hours 02/24/20 14:41 Urine, Random Urine Culture - Final Klebsiella pneumoniae sp pneum Laboratory Results 02/26/20 12:28: POC Glucose 399 H 02/26/20 16:06: POC Glucose 438 H 02/26/20 21:56: POC Glucose 396 H 02/27/20 05:22: Sodium 134 L, Potassium 3.8, Chloride 98, Carbon Dioxide 31.0, Anion Gap 5, BUN 27 H, Creatinine 0.54 L, Estim Creat Clear Calc 85.43, Est GFR (MDRD) Af Amer 147, Est GFR (MDRD) Non-Af 122, BUN/Creatinine Ratio 50.1 H, Glucose 137 H, Calcium 9.4 Current Medications Acetaminophen (Acetaminophen 325 Mg Tablet) 650 mg PO Q6H PRN PRN PRN Reason: Pain Score 1-10/Temp > 100.7 F Last Admin: 02/21/20 22:27 Dose: 650 mg Documented by: Cyclobenzaprine HCl (Cyclobenzaprine Hcl 10 Mg Tablet) 10 mg PO TID PRN PRN PRN Reason: SPASMS Dextrose (Dextrose 50%-Water 25 Gm/50 Ml Disp.Syrin) 0 gm IV X1 PRN; Protocol PRN Reason: Hypoglycemia Enoxaparin Sodium (Enoxaparin 80 Mg/0.8 Ml Syringe) 70 mg SC BID [facility] Last Admin: 02/27/20 08:59 Dose: 70 mg Documented by: Furosemide (Furosemide 40 Mg/4 Ml Vial) 40 mg IV BID@1000,1800 [facility] Last Admin: 02/27/20 08:59 Dose: 40 mg Documented by: Glucagon (Glucagon 1 Mg/Ml Syringe) 1 mg IM .X1 PRN PRN Reason: Hypoglycemia Guaifenesin (Guaifenesin 10 Ml Udc (200mg/10ml)) 20 ml PO Q4H PRN PRN PRN Reason: COUGH Last Admin: 02/20/20 21:37 Dose: 20 ml Documented by: Insulin Glargine (Insulin Glargine 100 Units/Ml Pen) 45 units SC BID [facility] Last Admin: 02/27/20 09:00 Dose: 45 u Documented by: Insulin Human Lispro (Insulin Lispro 100 Unit/Ml Insuln.Pen) 0 unit SC ACHS [facility]; Protocol Last Admin: 02/27/20 11:29 Dose: 6 u Documented by: Insulin Human Lispro (Insulin Lispro 100 Unit/Ml Insuln.Pen) 20 unit SC TIDAC [facility] Last Admin: 02/27/20 11:29 Dose: 20 units Documented by: Linagliptin (Linagliptin 5 Mg Tablet) 5 mg PO DAILY [facility] Last Admin: 02/27/20 08:58 Dose: 5 mg Documented by: Lisinopril (Lisinopril 5 Mg Tablet) 5 mg PO DAILY [facility] Last Admin: 02/27/20 08:58 Dose: 5 mg Documented by: Meloxicam (Meloxicam 15 Mg Tablet) 15 mg PO DAILY [facility] Last Admin: 02/27/20 08:58 Dose: 15 mg Documented by: Ondansetron HCl (Ondansetron 4 Mg/2 Ml Vial) 4 mg IV Q8H PRN PRN PRN Reason: NAUSEA/VOMITING Pantoprazole Sodium (Pantoprazole Sodium 20 Mg Tablet) 20 mg PO DAILY PRN PRN PRN Reason: gerd Throat Lozenges (Benzocaine/Menthol 1 Lozenge) 1 lozenge MUCOUS MEM Q2H PRN PRN PRN Reason: SORE THROAT Last Admin: 02/20/20 21:36 Dose: 1 lozenge Documented by: Discharge Diet: 1800 Calorie Control Diet Call your doctor if you observe: Fever of 101 or Higher, Shortness of breath Home Medications: Medications to take at Discharge meloxicam 15 mg tablet 15 mg PO DAILY 12/12/17 metformin 1,000 mg tablet 1,000 mg PO BID 12/12/17 Cyclobenzaprine HCl 10 mg PO TID PRN PRN 02/18/20 Insulin Detemir [Levemir Flextouch] 34 unit SQ QHS 02/18/20 Lisinopril [Zestril] 5 mg PO DAILY 02/18/20 Pantoprazole Sodium [Protonix] 20 mg PO DAILY PRN PRN 02/18/20 Sitagliptin Phosphate [Januvia] 100 mg PO DAILY 02/18/20 Smz/Tmp Ds [Bactrim Ds] 1 tab PO BID #10 tab 02/27/20 Following Prescriptions Were Given to Patient: Smz/Tmp Ds [Bactrim Ds] 1 tab PO BID #10 tab Transmission Status: Pending to [facility] Primary Care Physician: [facility] Rosina Caballero [Primary Care Provider] - Within 2 Weeks Disposition: Home Minutes spent on discharge:: 32 Patient Condition:: Fair Medical Necessity - Tobacco Use Smoking Status: Former smoker Tobacco Use: Cigarettes Meaningful Use Info Meaningful Use Diagnoses (Choose all that apply): None applicable Inpatient E&M: 74449 Disch Hosp
[2020-02-27 12:51] LABS: Bedside Glucose 308 mg/dL (70-110)
--- NOTE | 2020-02-27 13:08 | CM.UR ---
DANIS CM Note: oxygen packet faxed to [employer] and called to update. 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 Abhay CAMACHON RN ACM
--- NOTE | 2020-02-28 16:15 | CASEMGMT ---
RN CM DC Note DC DATE: 02-28-2020 DC Disposition: Home with oxygen DC Diagnosis: COVID 19 Intro role of CM to patient via phone. Pt states she has her oxygen set up and is feeling well. No questions re: instructions or follow up. Pt will call physician office Tuesday for follow up appt. Abhay CARTWRIGHT RN ACM
== END 2020-02-27 16:20 | disposition home or self-care (01) | DRG 177 ==
LOC: ED 15:29 → MS2 19:13
PROVIDERS: Family Medicine; Emergency Provider Emergency Medicine
DX: U07.1 COVID-19 (principal); J12.89 Other viral pneumonia; J96.01 Acute respiratory failure with hypoxia; N39.0 Urinary tract infection, site not specified; B96.1 Klebsiella pneumoniae [K. pneumoniae] as the cause of diseases classified elsewhere; E11.65 Type 2 diabetes mellitus with hyperglycemia; T38.0X5A Adverse effect of glucocorticoids and synthetic analogues, initial encounter; E87.6 Hypokalemia; I10 Essential (primary) hypertension; K21.9 Gastro-esophageal reflux disease without esophagitis; M19.90 Unspecified osteoarthritis, unspecified site; Z79.4 Long term (current) use of insulin; Z79.899 Other long term (current) drug therapy; Z87.891 Personal history of nicotine dependence
CPT/HCPCS: 36415; 71275; 80048; 80053; 81001; 82009; 82962; 83605; 83615; 83735; 83880; 84075; 85025; 85379; 85384; 85610; 86140; 87040; 87077; 87086; 87088; 87186; 93005; 94640; 94660; 97802; 99284; J7050; Q9967; A4216; J1940

== ENCOUNTER → 2020-04-16 10:04 | Outpatient (CLI) | payer OTHER, SELFPAY ==
[2020-02-18 18:22] VITALS: BMI 27.0
[2020-04-16 12:22] LABS: AST(SGOT) 46 U/L (15-37); Alanine Aminotransfer ALT/SGPT 74 U/L (13-56); Albumin, Serum 3.7 g/dL (3.2-5.0); Alkaline Phosphatase 77 U/L (45-117); Anion Gap 4 (5-15); BUN 11 mg/dL (7-18); BUN/Creat Ratio 17.5 RATIO (10-20); Calcium,Total 9.1 mg/dL (8.5-10.1); Chloride 106 mmol/L (98-107); Creatinine, Serum 0.63 mg/dL (0.55-1.02); EST Glomerular Filtration Rate 102 mL/min (>60); Est Glom Filt Rate - Afr Amer 123 mL/min (>60); Globulin 3.8 g/dL (2.2-4.2); Glucose 182 mg/dL (74-106); Protein, Total 7.5 g/dL (6.4-8.2); Sodium Level 138 mmol/L (136-145)
[2020-04-16 12:52] LABS: Hemoglobin A1c 7.5 % (3.8-5.6)
== END ==
DX: E11.65 Type 2 diabetes mellitus with hyperglycemia (principal)
CPT/HCPCS: 36415; 80053; 83036

== ENCOUNTER → 2020-06-02 09:56 | Outpatient (CLI) | payer OTHER, SELFPAY ==
[2020-02-18 18:22] VITALS: BMI 27.0
[2020-05-28 10:00] VITALS: BMI 29.0
--- NOTE | 2020-06-02 10:00 | US_ITS ---
STUDY: ABDOMINAL ULTRASOUND REASON FOR EXAM: Female, 65 years old. ABN RESULTS OF LIVER FUNCTION STUDIES -- PT IS AWARE SHE IS EARLY TECHNIQUE: Transabdominal ultrasound was performed with real-time and static quiroga scale imaging. TECHNICAL QUALITY: Adequate. COMPARISON: None. FINDINGS: Visualized liver parenchyma shows increased echogenicity with no sonographic evidence of a focal lesion. There is no gallbladder stone or polyp. No gallbladder wall thickening or pericholecystic fluid is seen. Sonographic Jason''s sign has been reported negative. Common bile duct measures 0.3 cm in diameter. Visualized pancreatic head and body, aorta, and IVC are unremarkable. There is no hydronephrosis on either side. Nonobstructed renal stones are seen bilaterally measuring up to 0.9 cm on the left. There are calcified granulomas in the spleen. The spleen is normal in size. No free fluid is seen in the abdomen. US/Abdomen Complete IMPRESSION: Diffuse hepatic steatosis. No cholelithiasis. No biliary dilatation. Suggestion of nonobstructing renal stones bilaterally. No ascites. Electronically Signed: Victor Manuel Bueno MD at 1:25 EDT Tel , Service support ,
== END ==
LOC: US 09:57
DX: K76.0 Fatty (change of) liver, not elsewhere classified (principal)
CPT/HCPCS: 76700

== ENCOUNTER → 2020-07-09 08:52 | Outpatient (CLI) | payer OTHER, SELFPAY ==
[2020-05-28 10:00] VITALS: BMI 29.0
--- NOTE | 2020-07-09 | CYSPIN_PTH ---
PATIENT: CORDELL ORNELAS LOC: [facility] U#:[id number] AGE/SX: 69/F ROOM: RE07/09/[address]: Dr. Ester Yen MD : 1955 BED: DIS: SPEC #: [id number] RECD: 07/10/20 10:15 STATUS: LUIS ENRIQUE MIMI #: [id number] TRAVIS: 07/09/20 00:[address]: Ester Yen DEPT: CYTOLOGY RECD BY: Yeni Isaac ENTERED: 07/10/20 10:17 SP TYPE: CYSPIN FL OTHR DR: [facility] Tissues: Urine Procedures: Pap Stain (control) Special Stain Group II Cytospin Fluid HEADER OPERATION: Not noted PRE-OP DIAGNOSIS: Gross hematuria, UTI, renal stone TISSUE SUBMITTED: Urine for cytology DIAGNOSIS CYTOLOGY Urine for cytology (cytospin): Negative for malignant cells. Marked acute inflammation. See comment. SJ:moira 07/11/2020 COMMENT Numerous organisms consistent with bacteria are also noted. Clinical correlation and appropriate follow up are necessary. CYTOLOGY STUDY Slides are reviewed. CYTOLOGY GROSS Received is 40 ml of dark yellow cloudy fluid labeled with the patient's name and and designated per the requisition as urine. Submitted for cytology preparation. / moira 07/10/2020 TC:2 CPT: 25680
[2020-07-09 10:40] LABS: BUN 11 mg/dL (7-18); EST Glomerular Filtration Rate 107 mL/min (>60); Est Glom Filt Rate - Afr Amer 129 mL/min (>60)
[2020-07-09 15:16] LABS: Cytology, Body Fluid / CSF SEE PATHOLOGY REPORT
== END ==
PROVIDERS: Referring Provider Urology; Visit Provider Urology
DX: N39.0 Urinary tract infection, site not specified (principal); R31.0 Gross hematuria; N20.0 Calculus of kidney
CPT/HCPCS: 36415; 82565; 84520; 88108; 88313

== ENCOUNTER → 2020-07-15 12:53 | Outpatient (CLI) | payer OTHER, MEDICAID, SELFPAY ==
[2020-05-28 10:00] VITALS: BMI 29.0
[2020-07-15 13:37] LABS: Hematocrit 40.4 % (37-47); Hemoglobin 13.8 g/dL (12.0-15.0); Mean Corp Hgb Conc 34.2 g/dL (32-36); Mean Corpuscular Hgb 29.2 pg (27.0-32.0); Mean Corpuscular Volume 85.6 fL (81-99); Mean Platelet Vol. 9.4 fl (6.2-12.0); Platelet Count 302 K/mm3 (150-450); RBC Distribution Width CV 12.9 % (11.6-14.6); RBC Distribution Width SD 39.7 fl (35.1-43.9); Red Blood Count 4.72 M/mm3 (4.2-5.4); White Blood Count 7.1 K/mm3 (4.4-11.0)
[2020-07-15 14:21] LABS: Anion Gap 8 (5-15); BUN 11 mg/dL (7-18); BUN/Creat Ratio 15.8 RATIO (10-20); Calcium,Total 10.2 mg/dL (8.5-10.1); Chloride 104 mmol/L (98-107); EST Glomerular Filtration Rate 90 mL/min (>60); Est Glom Filt Rate - Afr Amer 109 mL/min (>60); Glucose 128 mg/dL (74-106); Potassium 3.8 mmol/L (3.5-5.1); Sodium Level 138 mmol/L (136-145)
== END ==
PROVIDERS: Referring Provider Urology; Visit Provider Urology
DX: N39.0 Urinary tract infection, site not specified (principal)
CPT/HCPCS: 36415; 80048; 85027

== ENCOUNTER → 2020-07-23 11:19 | Outpatient (CLI) | payer MEDICAID, SELFPAY ==
[2020-05-28 10:00] VITALS: BMI 29.0
--- NOTE | 2020-07-23 11:40 | RAD_ITS ---
STUDY: X-RAY CHEST REASON FOR EXAM: Female, 65 years old. SOB, hx of covid, ordering DrArleth also checking for COPD. TECHNIQUE: PA and lateral views of the chest. COMPARISON: CT February 18, 2020 FINDINGS: There are mild interstitial increased opacities of the lungs. There is left lower lung granuloma. There is no demonstrated pleural abnormality. Normal size heart. There are calcified mediastinal lymph nodes. Normal visualized pulmonary arteries. Normal visualized aortic arch and descending thoracic aorta. Normal visualized thoracic spine. Normal visualized ribs, clavicles, and shoulders. There is no demonstrated abnormality of the visualized soft tissue structures of the upper abdomen. RAD/Chest PA and Lateral IMPRESSION: Interstitial fibrosis or edema. Electronically Signed: Edward Mays MD at 19:52 EDT [phone] This report is pending additional review. Service support ,
[2020-07-23 12:09] LABS: Vitamin B12 284 pg/mL (211-911)
[2020-07-23 12:22] LABS: BNP,B-Type NATRIURETIC PEPTIDE 34.4 pg/mL (0-100)
[2020-07-23 13:30] LABS: Iron 63 ug/dL (50-170); Iron Binding Capacity,Total 421 ug/dL (250-450)
[2020-07-26 15:22] LABS: Vitamin D 1,25-Dihydroxy 43.4 pg/mL (19.9-79.3)
== END ==
PROVIDERS: Referring Provider Nurse Practitioner Adult Health; Visit Provider Nurse Practitioner Adult Health
DX: R06.02 Shortness of breath (principal); R53.83 Other fatigue
CPT/HCPCS: 36415; 71046; 82607; 82652; 82746; 83540; 83550; 83880

== ENCOUNTER → 2020-07-24 17:47 | Outpatient (CLI) | payer MEDICAID, SELFPAY ==
[2020-05-28 10:00] VITALS: BMI 29.0
--- NOTE | 2020-07-24 17:51 | CT_ITS ---
STUDY: CT ABDOMEN AND PELVIS WITH AND WITHOUT CONTRAST REASON FOR EXAM: Female, 65 years old. Gross Hematuria, Right Stone, UTI RADIATION DOSAGE (If Supplied By Facility): CTDIvol = ( 18.21 ) mGy, DLP = ( 3010.10 ) mGycm TECHNIQUE: Transaxial images were obtained from the dome of the diaphragm to the symphysis pubis without oral contrast. IV 100mL Isovue-300 was administered. Sagittal and coronal images were reconstructed. Individualized dose optimization techniques were used for this CT. COMPARISON: None. FINDINGS: Minimal increased markings at the lung bases suggestive of linear atelectasis and/or scarring. The visualized portions of the heart are within normal limits. There is decreased attenuation of the liver consistent with steatosis. Normal gallbladder and extrahepatic biliary system. There are multiple benign calcified granulomata of the spleen. Normal pancreas. Normal bilateral adrenal glands. Focal scarring in the superior lateral aspect of the right kidney. There is a 6.9 mm calculus in the mid lower portion of the left kidney. There is 1.4 cm cyst in the upper medial aspect of the left kidney. Normal visualized stomach. Normal small intestine. There are multiple colonic diverticula consistent with diverticulosis. The patient is status post appendectomy. There is diffuse atherosclerotic calcification of the abdominal aorta, without a demonstrated aneurysm. Normal inferior vena cava. There is borderline retroperitoneal lymphadenopathy with enlarged nodes no greater than 10mm in the short axis diameter. Normal urinary bladder. Normal abdominal wall. There are mild degenerative changes of the visualized lumbar spine. CT/CT Abd/Pelvis W/WO Contrast IMPRESSION: 6.9 mm calculus in the mid inferior pole of the left kidney. Electronically Signed: Amol Connell MD at 11:33 EDT , Service support ,
== END ==
PROVIDERS: Referring Provider Urology; Visit Provider Urology
DX: N21.0 Calculus in bladder (principal); N39.0 Urinary tract infection, site not specified
CPT/HCPCS: 74178; Q9967

== ENCOUNTER → 2020-07-30 08:05 | Outpatient (CLI) | payer MEDICAID, SELFPAY ==
[2020-05-28 10:00] VITALS: BMI 29.0
--- NOTE | 2020-07-30 09:05 | RAD_ITS ---
STUDY: X-RAY - ABDOMEN/PELVIS REASON FOR EXAM: Female, 65 years old. KIDNEY STONE TECHNIQUE: 1 view COMPARISON: Prior abdomen and pelvic CT exam of 07/24/2020 FINDINGS: Calcified granuloma in the posterior left lung base. There is an unremarkable bowel gas pattern. There is no demonstrated free abdominal air. There is a nonobstructing triangular stone measuring 8.0 x 8.6 mm in the lower pole of the left kidney. Negative for other renal stones or ureteral stones. Normal soft tissue structures. Normal visualized osseous structures. RAD/Abdomen Single View IMPRESSION: 8.0 x 8.6 mm nonobstructing triangle shaped stone in the lower pole of left kidney. Electronically Signed: Odalys Ventura MD at 22:58 EDT , Service support ,
--- NOTE | 2020-07-31 07:10 | PFT ---
INTRODUCTION: The patient is a 65-year-old female that presents for pulmonary function studies secondary to a diagnosis of shortness of breath. Respiratory therapy reports good patient effort. Bronchodilators were used during testing. INTERPRETATION: Forced expiration spirometry demonstrates no evidence of a large airways obstructive ventilatory defect. There was no significant response to aerosolized bronchodilators. Spirograms are of good quality and plateau normally. Body plethysmography was performed and reveals lung volumes to be within normal limits. Diffusing capacity by single breath CO is at the lower limits of normal at 72% of predicted. IMPRESSION: Grossly normal pulmonary function studies.
== END ==
PROVIDERS: Referring Provider Nurse Practitioner Adult Health; Visit Provider Nurse Practitioner Adult Health
DX: R06.02 Shortness of breath (principal); N20.0 Calculus of kidney
CPT/HCPCS: 74018; 94060; 94726; 94729

== ENCOUNTER 2020-08-19 08:51 | Day surgery (SDC) | payer MEDICAID, SELFPAY ==
[2020-05-28 10:00] VITALS: BMI 29.0
[2020-08-19] VITALS (9 sets, daily range): BP systolic 115–157; BP diastolic 65–91; PULSE 62–84; RESP 16–169; TEMP 36.1–36.8; O2SAT 89–98; BMI 30.6
--- NOTE | 2020-08-19 08:30 | OP.PCM_ITS ---
Problems Associated Problem List Diagnoses (1) Left renal stone: (2) Gross hematuria: Report of Operation Date of Procedure: 08/19/20 Pre-Operative Diagnosis: Left renal stone, gross hematuria Post-Operative Diagnosis: Same, grade 1 cystocele with postmenopausal vaginal atrophy Surgery/Procedure Performed:: Left renal extracorporal shockwave lithotripsy, cystoscopy Surgeon: Ester Yen Type of Anesthesia: General Description of Procedure: The patient is a 65-year-old female who developed gross hematuria. On evaluation, a left lower pole 7 mm calculus was identified. She agreed to proceed with shockwave lithotripsy for definitive management. A cystoscopy was agreed to for evaluation of the hematuria. Informed consent was obtained. The patient was taken to the operating room and placed on the operating table. Anesthesia monitored the head, neck, airway, vital signs throughout the case. Once anesthesia was appropriately ministered the patient was placed in dorsal lithotomy position was prepped and draped in usual sterile fashion. A pelvic examination was performed. There is a grade 1 cystocele and vaginal atrophy. The remainder of the exam was within normal limits. The cystoscope was inserted through the urethra under direct visualization. The urethral and bladder mucosa were visualized directly and found to be without evidence of mass, erythema, ulceration or foreign body. The patient's bladder was then emptied. The left renal calculus was clearly identified. 3000 shocks were applied to the left s tone and appeared to be well fragmented at the conclusion of the case. There were no complications during the procedure. The patient was awakened and taken to the recovery room in good condition. Grafts/Implants Used: none Complications none Admit VTE Documentation VTE Present on Admission: Yes VTE Mechan Device Prophylaxis: SCD's VTE Pharm Prophylaxis ordered?: No Reason prophylaxis not ordered:: Treatment Not Indicated
--- NOTE | 2020-08-19 08:31 | PCM.DC ---
Discharge Instructions Diet Discharge Diet: No restrictions Activity Discharge Activity: Return to Normal Activity Dressing / Incision Call your doctor if you observe: Fever of 101 or Higher, Inability to urinate, Inability to have a bowel movement, Calf discomfort and Uncontrolled pain Follow Up Care Please Follow Up With: Ester Yen MD When: in 2-3 weeks with KUB, call office for appt Test Results: Test results from this visit will be discussed in further detail at your follow-up appointment, if applicable. Discharge Plan Admission Attending Provider: Ester Yen [facility] Providers: Bess Mckeon Discharge Orders/Prescriptions Prescriptions: New oxycodone-acetaminophen [oxycodone-acetaminophen] 1 TABLET tablet 2 tab PO Q8H PRN PRN (Reason: Pain) 7 Days Qty: 20 RF: 0 ondansetron HCl [ondansetron HCl] 8 MG tablet 8 mg PO Q8H PRN PRN (Reason: Nausea) 7 Days Qty: 20 RF: 0 phenazopyridine [Pyridium] 200 MG tablet 200 mg PO TID PRN PRN (Reason: Bladder Spasms) 7 Days Qty: 30 RF: 0 Continued meloxicam 15 mg tablet 7.5 mg PO DAILY RF: 0 metformin 1,000 mg tablet 1,000 mg PO BID RF: 0 glimepiride 4 mg tablet 4 mg PO DAILY Qty: 90 RF: 1 cyclobenzaprine 10 MG tablet 10 mg PO TID PRN PRN (Reason: Spasms) RF: 0 pantoprazole 20 MG tablet 20 mg PO DAILY PRN PRN (Reason: gerd) RF: 0 lisinopril 5 MG tablet 10 mg PO DAILY RF: 0 sulfamethoxazole-trimethoprim 1 TABLET tablet 1 tab PO BID Qty: 10 RF: 0 Lantus Solostar U-100 Insulin 100 unit/mL (3 mL) Insulin Pen 45 unit SUBCUT QPM RF: 0 [facility] - Disposition Disposition (needs filled in before D/C Order can be placed): Home, Self Care
[2020-08-19] MEDS: Lactated Ringers 1,000 ML 100 ML IV (09:47)
[2020-08-19] MEDS: Cefazolin 2 GM in 0.9% Normal Saline 100 ML IV (10:10)
[2020-08-19 10:11] LABS: Bedside Glucose 124 mg/dL (70-110)
[2020-08-19 11:25] LABS: Bedside Glucose 115 mg/dL (70-110)
== END 2020-08-19 14:31 | disposition home or self-care (01) ==
LOC: SDC 08:51 → AC 08:53
PROVIDERS: Referring Provider Urology; Visit Provider Urology
PROC: (CPT 50590; principal; 2020-08-19 10:20)
DX: N20.0 Calculus of kidney (principal); R31.0 Gross hematuria; N95.2 Postmenopausal atrophic vaginitis; N81.10 Cystocele, unspecified; I10 Essential (primary) hypertension; F41.9 Anxiety disorder, unspecified; F32.9 Major depressive disorder, single episode, unspecified; E78.00 Pure hypercholesterolemia, unspecified; E78.1 Pure hyperglyceridemia; K76.0 Fatty (change of) liver, not elsewhere classified; G25.81 Restless legs syndrome; E07.9 Disorder of thyroid, unspecified; E11.40 Type 2 diabetes mellitus with diabetic neuropathy, unspecified; Z86.2 Personal history of diseases of the blood and blood-forming organs and certain disorders involving the immune mechanism; Z87.19 Personal history of other diseases of the digestive system; Z87.440 Personal history of urinary (tract) infections; Z87.448 Personal history of other diseases of urinary system; Z87.01 Personal history of pneumonia (recurrent); Z79.84 Long term (current) use of oral hypoglycemic drugs; Z79.899 Other long term (current) drug therapy
CPT/HCPCS: 50590; 82962; J7120; J2405

== ENCOUNTER → 2020-09-04 10:22 | Outpatient (CLI) | payer MEDICAID, SELFPAY ==
[2020-08-19 09:22] VITALS: BMI 30.6
--- NOTE | 2020-09-04 10:25 | RAD_ITS ---
STUDY: X-RAY - ABDOMEN/PELVIS REASON FOR EXAM: Female, 65 years old. LEFT RENAL STONE TECHNIQUE: Single AP view of the abdomen / pelvis. COMPARISON: Comparison is made with prior examination dated 07/30/2020. FINDINGS: Normal visualized lung bases. There is an abundance of fecal material throughout the colon. Tiny residual calcification in the lower pole calyx of the left kidney. Normal soft tissue structures. Normal visualized osseous structures. RAD/Abdomen Single View IMPRESSION: Tiny residual calcification in the lower pole of the left kidney. Electronically Signed: Amol Connell MD at 14:56 EDT , Service support ,
== END ==
PROVIDERS: Referring Provider Urology; Visit Provider Urology
DX: N20.0 Calculus of kidney (principal)
CPT/HCPCS: 74018

== ENCOUNTER → 2020-09-10 14:00 | Outpatient (CLI) | payer MEDICAID, SELFPAY ==
[2020-08-19 09:22] VITALS: BMI 30.6
--- NOTE | 2020-09-10 14:04 | CT_ITS ---
STUDY: LOW DOSE CT LUNG CANCER SCREENING REASON FOR EXAM: Female, 65 years old. PULMONARY FIBROSIS. Former smoker. RADIATION DOSAGE (If Supplied By Facility): CTDIvol = ( 3.02 ) mGy, DLP = ( 92.89 ) mGycm TECHNIQUE: No contrast was administered. Low dose technique was utilized (average mAS-38 and kVp 120). 1.25 mm axial source images with a slice interval of 1.25-mm were reconstructed in lung windows. 2.5 mm axial source images with a slice interval of 2.5-mm were reconstructed in lung windows. 5.0 mm axial source images with a slice interval of 5.0-mm were reconstructed in soft tissue windows. Nodule measured using lung windows on PACS and/or independent workstation with automated measurement of minimum and maximum diameter. Nodule measurement reported as average diameter rounded to the nearest whole number. Growth is defined as an increase ins size of greater than 1.5 mm. COMPARISON: Comparison is made with prior examination dated 02/18/2020. There is a 3.5 cm x 3.3 cm x 4.8 cm calcified mass in the right lobe of the thyroid. This causes indentation along the right side of the trachea. NODULES: There is a 1.2 cm calcified granuloma in the posterior lateral aspect of the left lower lobe. Emphysema: Mild degree of increased signal markings in the right middle lobe as well as into a segment of the left upper lobe suggestive of mild scarring. Endobronchial lesion: None Aorta: Atherosclerotic plaque formation of the aortic arch. Coronary arteries: Coronary artery calcification. Heart: Unremarkable Pulmonary artery: Unremarkable Mediastinal nodes: Small mediastinal lymph nodes. Other chest and abdominal findings: CT/Low Dose CT Lung Screening IMPRESSION: Lung-RADS category 2 - Continue annual screening with LDCT in 12 months. IMPORTANT NOTES FOR USE: ACR Lung-RADS Version 1.1 Assessment Categories Release Date: 2018 Category: Coded 0-4 bases on nodule(s) with highest degree of suspicion. Negative screen is defined as categories 1 and 2; a positive screen is defined as categories 3 and 4. Category 3 and 4A nodules that are unchanged on interval CT should be coded as category 2, and individuals returned to screening in 12 months. Category 4X: Category 3 or 4 nodules with additional imaging findings that increase the suspicion of lung cancer, such as spiculation, GGN that doubles in size in 1 year, enlarged lymph notes, etc. Category Modifiers: S (significant finding unrelated to lung cancer) Electronically Signed: Amol Connell MD at 15:18 EDT , Service support ,
== END ==
PROVIDERS: Referring Provider Nurse Practitioner Adult Health; Visit Provider Nurse Practitioner Adult Health
DX: Z12.2 Encounter for screening for malignant neoplasm of respiratory organs (principal); Z87.891 Personal history of nicotine dependence; J84.10 Pulmonary fibrosis, unspecified
CPT/HCPCS: 71271

== ENCOUNTER → 2020-10-16 10:35 | Outpatient (CLI) | payer MEDICAID, SELFPAY ==
[2020-08-19 09:22] VITALS: BMI 30.6
--- NOTE | 2020-10-16 10:38 | US_ITS ---
STUDY: THYROID ULTRASOUND REASON FOR EXAM: Female, 65 years old. NONTOXIC SINGLE THY NODULE TECHNIQUE: Ultrasound evaluation of the thyroid was performed with real-time and static quiroga-scale imaging. COMPARISON: Comparison is made with prior examination dated 11/28/2017. FINDINGS: RIGHT LOBE: The right lobe of the thyroid gland is enlarged and measures 7.3 cm x 3.2 cm x 2.5 cm. There is a heterogeneous echotexture. There is a 4.2 cm x 2.7 cm x 1.6 cm solid nodule with peripheral calcification in the midpole of the right lobe. Posterior acoustical shadowing is seen. Biopsy is recommended. There is also evidence of a 1.9 cm x 1.4 cm x 1.7 cm hypoechoic nodule in the upper pole. LEFT LOBE: The left lobe of the thyroid gland measures 3.7 cm x 2.6 cm x 1.2 cm. There is a heterogeneous echotexture. 4 mm x 4 mm x 4 mm cyst is seen in the upper pole. Several smaller cysts are seen as well. ISTHMUS: The isthmus measures 2.8 mm there is a 3 mm x 3 mm x 2 mm hypoechoic solid nodule in the isthmus.. The regional lymph nodes are normal. US/Thyroid IMPRESSION: Dominant mass in the right lobe of the thyroid with posterior acoustical shadowing. Biopsy recommended. Electronically Signed: Amol Connell MD at 11:51 EDT , Service support ,
== END ==
PROVIDERS: Referring Provider Nurse Practitioner Adult Health; Visit Provider Nurse Practitioner Adult Health
DX: E04.1 Nontoxic single thyroid nodule (principal)
CPT/HCPCS: 76536

== ENCOUNTER → 2020-10-31 10:58 | Outpatient (CLI) | payer MEDICAID, SELFPAY ==
[2020-10-31 12:41] LABS: Cholesterol 184 mg/dL (200); High Density Lipoprotein 18 mg/dL; Thyroid Stim Hormone (TSH) 1.36 uIU/mL (0.358-3.74); Triglycerides 188 mg/dL; Very Low Density Lipoprotein 38 mg/dL (5-40)
[2020-10-31 12:44] LABS: Microalbumin,Random Urine 30.6 mg/L (NO RANGE EST.); Microalbumin:Creatinine Ratio 57.4 mg/g CRE (<30 mg/g CRE)
[2020-10-31 14:21] LABS: T4 Free Direct 1.16 ng/dL (0.76-1.46)
== END ==
PROVIDERS: Referring Provider Nurse Practitioner Family; Visit Provider Nurse Practitioner Family
DX: E11.65 Type 2 diabetes mellitus with hyperglycemia (principal); Z79.4 Long term (current) use of insulin; E03.9 Hypothyroidism, unspecified
CPT/HCPCS: 36415; 80061; 82043; 82570; 84439; 84443

== ENCOUNTER 2020-11-10 09:36 | Day surgery (SDC) | payer MEDICAID, SELFPAY ==
[2020-11-10] MEDS: Lactated Ringers 1,000 ML 100 ML IV (09:55)
[2020-11-10 10:09] VITALS: BP 141/98; PULSE 55; RESP 16; TEMP 36.5; O2SAT 98; BMI 29.6
--- NOTE | 2020-11-10 10:35 | PCM.OPRPT ---
Problems Associated Problem List Diagnoses (1) Ureteral calculus, left: (2) Hydronephrosis: Report of Operation Date of Procedure: 11/10/20 Pre-Operative Diagnosis: Left ureteral calculus, left hydronephrosis Post-Operative Diagnosis: Same, passed Surgery/Procedure Performed:: Cystoscopy, left ureteroscopy, left retrograde pyelogram, left ureteral stent insertion Surgeon: Ester Yen Type of Anesthesia: General Description of Procedure: The patient is a 65-year-old female with a distal left ureteral calculus seen on CT scan for evaluation of pain. She now presents for definitive management. Informed consent was obtained. The patient was taken the operating room and placed on the operating room table. Anesthesia monitored the head, neck, airway, IV access and vital signs throughout the case. Once anesthesia was appropriate ministered the patient was placed into dorsal lithotomy position and was prepped and draped in usual sterile fashion. The cystoscope was inserted through the urethra under direct visualization into the urinary bladder. There were no masses, areas of erythema or lesions identified. There was no stone identified. The left ureter was intubated with a 0.035 Glidewire. The SlimLine semirigid ureteroscope was then passed alongside the wire into the distal one third of the ureter. The ureter was a mildly narrow, and the decision was made to inject contrast in retrograde fashion to further evaluate the proximal ureter. No filling defects were identified. At this time the ureteroscope was removed and the area of the ureter directly visualized revealed no stone or foreign body, mass or erythema. At this time the cystoscope was used for insertion of a 6 Malagasy 24 cm JJ stent with positioning in the renal pelvis and curling in the urinary bladder. The patient was then awakened and taken to the recovery room in good condition. There were no complications during this procedure. Grafts/Implants Used: 6 x 24 JJ stent Complications None Admit VTE Documentation VTE Present on Admission: Yes VTE Mechan Device Prophylaxis: SCD's VTE Pharm Prophylaxis ordered?: No Reason prophylaxis not ordered:: Treatment Not Indicated
--- NOTE | 2020-11-10 10:36 | PCM.DC ---
Discharge Instructions Diet Discharge Diet: No restrictions Activity Discharge Activity: Return to Normal Activity Dressing / Incision Call your doctor if you observe: Fever of 101 or Higher, Inability to urinate, Inability to have a bowel movement and Uncontrolled pain Follow Up Care Please Follow Up With: Ester Yen MD When: call office for appt Test Results: Test results from this visit will be discussed in further detail at your follow-up appointment, if applicable. Discharge Plan Admission Attending Provider: Ester Yen [facility] Orders/Prescriptions Prescriptions: New phenazopyridine [Pyridium] 200 MG tablet 200 mg PO TID PRN PRN (Reason: Bladder Spasms) 7 Days Qty: 30 RF: 0 Continued meloxicam 15 mg tablet 7.5 mg PO DAILY RF: 0 metformin 1,000 mg tablet 1,000 mg PO BID RF: 0 cephalexin 500 mg capsule 500 mg PO TID RF: 0 ibuprofen 600 mg tablet 600 mg PO TID RF: 0 tamsulosin 0.4 mg capsule 0.4 mg PO QHS RF: 0 hydrocodone-acetaminophen 10-325 mg tablet 1 tab PO TID RF: 0 ondansetron 4 mg tablet,disintegrating 4 mg PO Q4H PRN PRN (Reason: Nausea) RF: 0 albuterol sulfate [ProAir HFA] 90 mcg/actuation HFA aerosol inhaler 1 puff inhalation DAILY PRN PRN (Reason: SOB) RF: 0 glimepiride 4 mg tablet 4 mg PO DAILY Qty: 90 RF: 1 Lantus Solostar U-100 Insulin 100 unit/mL (3 mL) insulin pen 45 unit SUBCUT QPM Qty: 15 RF: 3 cyclobenzaprine 10 MG tablet 10 mg PO TID PRN PRN (Reason: Spasms) RF: 0 pantoprazole 20 MG tablet 20 mg PO DAILY PRN PRN (Reason: gerd) RF: 0 lisinopril 20 mg Tablet 20 mg PO DAILY RF: 0 Breztri Aerosphere 160-9-4.8 mcg/actuation Hfa Aerosol Inhaler 2 inh INHALATION BID RF: 0 [facility] - Disposition Disposition (needs filled in before D/C Order can be placed): Home, Self Care
[2020-11-10] MEDS: Cefazolin 2 GM in 0.9% Normal Saline 100 ML IV (10:39)
[2020-11-10 11:22] VITALS: BP 117/64; BP 141/98; PULSE 89; RESP 16; TEMP 36.6; O2SAT 97
[2020-11-10 11:30] VITALS: BP 123/62; BP 141/98; PULSE 84; RESP 16; O2SAT 97
[2020-11-10 11:35] LABS: Bedside Glucose 106 mg/dL (70-110)
[2020-11-10 11:54] VITALS: BP 119/57; BP 141/98; PULSE 83; RESP 16; TEMP 36; O2SAT 97
[2020-11-10 12:30] VITALS: BP 120/60; BP 141/98; PULSE 80; RESP 16; O2SAT 97
[2020-11-10 16:05] LABS: Bedside Glucose 119 mg/dL (70-110)
== END 2020-11-10 12:45 | disposition home or self-care (01) ==
LOC: SDC 09:37 → AC 09:38
PROVIDERS: Referring Provider Urology; Visit Provider Urology
PROC: 0TJ98ZZ Inspection of Ureter, Via Natural or Artificial Opening Endoscopic (ICD-10-PCS; CPT 52352; principal; 2020-11-10 11:15)
DX: N13.2 Hydronephrosis with renal and ureteral calculous obstruction (principal); I45.10 Unspecified right bundle-branch block; I10 Essential (primary) hypertension; E11.40 Type 2 diabetes mellitus with diabetic neuropathy, unspecified; M19.90 Unspecified osteoarthritis, unspecified site; K21.9 Gastro-esophageal reflux disease without esophagitis; E78.00 Pure hypercholesterolemia, unspecified; E66.3 Overweight; Z68.29 Body mass index [BMI] 29.0-29.9, adult; Z79.4 Long term (current) use of insulin; Z79.899 Other long term (current) drug therapy; Z87.442 Personal history of urinary calculi; Z86.16 Personal history of COVID-19; Z87.891 Personal history of nicotine dependence
CPT/HCPCS: 00910; 52332; 76000; 82962; J7120; C2617; J2405

== ENCOUNTER → 2020-11-19 | Outpatient (CLI) | payer MEDICAID, SELFPAY ==
--- NOTE | 2020-11-19 14:00 | FLU_PTH ---
PATIENT: CORDELL ORNELAS LOC: [facility] U#:[id number] AGE/SX: 65/F ROOM: RE11/19/[address]: Dr. Stalin Campo MD : [id number] BED: DIS: 11/19/2020 SPEC #: [id number] RECD: 11/19/20 16:16 STATUS: LUIS ENRIQUE MIMI #: [id number] TRAVIS: 11/19/20 14:[address]: Stalin Campo DEPT: CYTOLOGY RECD BY: Eren Sanchez ENTERED: 11/20/20 07:04 SP TYPE: Fluid OTHR DR: Ros[facility] Tissues: Thyroid gland, NOS Procedures: Special Stain Group II Cytospin Fluid HEADER OPERATION: Fine needle aspiration PRE-OP DIAGNOSIS: Right thyroid nodule TISSUE SUBMITTED: Right thyroid nodule fluid DIAGNOSIS CYTOLOGY Right thyroid nodule fluid, FNA (cytospin and cell block): Nondiagnostic specimen due to lack of follicular cells. See comment. SJ:moira 11/21/2020 COMMENT Scant minute fragments of calcified material are noted. Correlation with clinical, radiologic findings and appropriate follow up are necessary. Please make reference to previous specimen ([id number]) right thyroid nodule, ultrasound-guided FNA with diagnosis of ?blood and scattered inflammatory cells.? Case has been reviewed in consultation with Dr. Hardy who concurs with the above diagnosis. IDC:AM CYTOLOGY STUDY Slides are reviewed. CYTOLOGY GROSS Received is <1 ml of red turbid fluid labeled with the patient's name and and designated per the requisition as right thyroid. Submitted for cytology preparation including cell block. / moira 11/20/2020 TC:?Cannot code CPT: 17972
== END | disposition home or self-care (01) ==
LOC: LABSPEC 16:29
PROVIDERS: Referring Provider Surgery; Visit Provider Surgery
DX: E04.1 Nontoxic single thyroid nodule (principal)
CPT/HCPCS: 88108; 88313

== ENCOUNTER 2021-04-01 11:25 | Outpatient (CLI) | payer MEDICAID, SELFPAY ==
--- NOTE | 2021-04-01 11:33 | RAD_ITS ---
STUDY: X-RAY - LUMBAR SPINE REASON FOR EXAM: Female, 65 years old. Radiating low back pain TECHNIQUE: 3 view(s) of the lumbar spine were obtained. COMPARISON: None FINDINGS: Normal lumbar lordosis. There is no substantial scoliosis. There is a normal alignment of the vertebrae. There is multilevel endplate spondylosis of the lumbar vertebrae. Mild disc space narrowing throughout the lumbar spine most pronounced at L3-4. There is no demonstrated fracture. There is atherosclerotic calcification of the abdominal aorta without a demonstrated aneurysm. RAD/Lumbar Spine 2 or 3 Views IMPRESSION: Degenerative changes of the spine, as detailed above. Electronically Signed: Javier Rolle MD at 16:21 EST ,
== END 2021-04-01 23:59 | disposition short-term general hospital (02) ==
LOC: RAD 11:28
DX: M54.50 Low back pain, unspecified (principal)
CPT/HCPCS: 72100

== ENCOUNTER → 2021-08-07 | Outpatient (CLI) | payer MEDICAID, SELFPAY ==
[2021-08-07 12:48] LABS: Erythrocyte Sedimentation Rate 18 mm/hr (0-30)
[2021-08-07 13:03] LABS: AST(SGOT) 23 U/L (15-37); Alanine Aminotransfer ALT/SGPT 42 U/L (13-56); Albumin, Serum 3.7 g/dL (3.2-5.0); Alkaline Phosphatase 81 U/L (45-117); Anion Gap 6 (5-15); BUN 21 mg/dL (7-18); BUN/Creat Ratio 25.1 RATIO (10-20); Calcium,Total 9.6 mg/dL (8.5-10.1); Chloride 108 mmol/L (98-107); Creatinine, Serum 0.84 mg/dL (0.55-1.02); EST Glomerular Filtration Rate 73 mL/min (>60); Est Glom Filt Rate - Afr Amer 88 mL/min (>60); Globulin 3.8 g/dL (2.2-4.2); Glucose 150 mg/dL (74-106); Protein, Total 7.5 g/dL (6.4-8.2); Rheumatoid Factor < 10.0 IU/mL (<15); Sodium Level 139 mmol/L (136-145)
[2021-08-10 20:19] LABS: ANTINUCLEAR ANTIBODIES DIRECT Negative (Negative)
[2021-08-11 12:16] LABS: CCP IgG Antibodies 18 units (0-19)
== END | disposition home or self-care (01) ==
LOC: LAB 11:08
PROVIDERS: Referring Provider Physician Assistant; Visit Provider Physician Assistant
DX: M25.541 Pain in joints of right hand (principal); M25.542 Pain in joints of left hand; M79.641 Pain in right hand; M79.642 Pain in left hand
CPT/HCPCS: 36415; 80053; 85652; 86038; 86200; 86225; 86235; 86431

== ENCOUNTER → 2021-09-14 | Outpatient (CLI) | payer MEDICAID, SELFPAY ==
--- NOTE | 2021-09-14 14:50 | CT_ITS ---
STUDY: LOW DOSE CT LUNG CANCER SCREENING REASON FOR EXAM: Female, 66 years old. PULMONARY NODULE. The patient smoked 1 pack per day for 30 years. RADIATION DOSAGE (If Supplied By Facility): CTDIvol = ( 1.59 ) mGy, DLP = ( 44.26 ) mGycm TECHNIQUE: No contrast was administered. Low dose technique was utilized (average mAS-38 and kVp 120). 1.25 mm axial source images with a slice interval of 1.25-mm were reconstructed in lung windows. 2.5 mm axial source images with a slice interval of 2.5-mm were reconstructed in lung windows. 5.0 mm axial source images with a slice interval of 5.0-mm were reconstructed in soft tissue windows. COMPARISON: Comparison is made with prior study dated 09/10/2020. Stable 3.5 cm x 3.3 cm x 4.8 cm calcified mass in the right lobe of the thyroid. This extends into the substernal region with compression of the right side of the trachea. NODULES: Stable 1.2 cm calcified granuloma posterior medial segment of the left lower Emphysema: Hyperinflation. Mild emphysematous changes. Stable mild degree of the scarring in the right middle lobe as well as in the lingular segment of the left upper lobe. Endobronchial lesion: None Aorta: Calcified plaques at the level of the aortic arch. CORONARY ARTERIES: Coronary artery calcification is seen. Heart: Unremarkable Pulmonary artery: Unremarkable Mediastinal nodes: Calcified left hilar lymph nodes. Other chest and abdominal findings: CT/Low Dose CT Lung Screening IMPRESSION: Lung-RADS category 2 - Continue annual screening with LDCT in 12 months. IMPORTANT NOTES FOR USE: ACR Lung-RADS Version 1.1 Assessment Categories Release Date: 2018 Category: Coded 0-4 bases on nodule(s) with highest degree of suspicion. Negative screen is defined as categories 1 and 2; a positive screen is defined as categories 3 and 4. Category 3 and 4A nodules that are unchanged on interval CT should be coded as category 2, and individuals returned to screening in 12 months. Category 4X: Category 3 or 4 nodules with additional imaging findings that increase the suspicion of lung cancer, such as spiculation, GGN that doubles in size in 1 year, enlarged lymph notes, etc. Category Modifiers: S (significant finding unrelated to lung cancer) Electronically Signed: Amol Connell MD at 15:32 EDT ,
== END | disposition home or self-care (01) ==
LOC: CT 14:49
PROVIDERS: Referring Provider Nurse Practitioner Adult Health; Visit Provider Nurse Practitioner Adult Health
DX: Z12.2 Encounter for screening for malignant neoplasm of respiratory organs (principal); J43.9 Emphysema, unspecified; R91.1 Solitary pulmonary nodule; Z87.891 Personal history of nicotine dependence
CPT/HCPCS: 71271

== ENCOUNTER → 2022-01-07 | Outpatient (CLI) | payer MEDICAID, SELFPAY ==
[2022-01-07 13:04] LABS: Vitamin D,25 Hydroxy 29.1 ng/mL
[2022-01-07 13:14] LABS: AST(SGOT) 27 U/L (15-37); Alanine Aminotransfer ALT/SGPT 51 U/L (13-56); Albumin, Serum 3.7 g/dL (3.2-5.0); Alkaline Phosphatase 90 U/L (45-117); Anion Gap 10 (5-15); BUN 12 mg/dL (7-18); BUN/Creat Ratio 14.1 RATIO (10-20); Calcium,Total 9.3 mg/dL (8.5-10.1); Chloride 106 mmol/L (98-107); Cholesterol 188 mg/dL (200); Creatinine, Serum 0.85 mg/dL (0.55-1.02); EST Glomerular Filtration Rate 71 mL/min (>60); Est Glom Filt Rate - Afr Amer 86 mL/min (>60); Globulin 3.8 g/dL (2.2-4.2); Glucose 156 mg/dL (74-106); High Density Lipoprotein 44 mg/dL; Potassium 4.1 mmol/L (3.5-5.1); Protein, Total 7.5 g/dL (6.4-8.2); Sodium Level 141 mmol/L (136-145); Thyroid Stim Hormone (TSH) 2.13 uIU/mL (0.358-3.74); Triglycerides 105 mg/dL; Very Low Density Lipoprotein 21 mg/dL (5-40)
[2022-01-07 13:21] LABS: Microalbumin,Random Urine 6.5 mg/L (NO RANGE EST.); Microalbumin:Creatinine Ratio 25.8 mg/g CRE (<30 mg/g CRE)
[2022-01-12 14:27] LABS: Anti-Thyroglobulin AB < 1.0 IU/mL (0.0-0.9); Thyroglobulin, Serum Qt. 23.6 ng/mL (1.5-38.5)
== END | disposition home or self-care (01) ==
LOC: LAB 11:32
PROVIDERS: Visit Provider Nurse Practitioner Family
DX: E11.9 Type 2 diabetes mellitus without complications (principal); E03.9 Hypothyroidism, unspecified; E04.1 Nontoxic single thyroid nodule
CPT/HCPCS: 36415; 80053; 80061; 82043; 82306; 82570; 84432; 84443; 86800

== ENCOUNTER → 2022-01-27 | Outpatient (CLI) | payer MEDICAID, SELFPAY ==
--- NOTE | 2022-01-27 14:32 | RAD_ITS ---
STUDY: X-RAY - ABDOMEN/PELVIS REASON FOR EXAM: Female, 66 years old. Flank pain TECHNIQUE: Two AP supine views of the abdomen and pelvis. COMPARISON: None. FINDINGS: Normal visualized lung bases. There is an unremarkable bowel gas pattern. There is no demonstrated free abdominal air. The visualized liver, spleen and kidneys are grossly normal in size and morphology. Normal soft tissue structures. Mild degenerative bony changes RAD/Abdomen Single View IMPRESSION: No acute findings Electronically Signed: Javier Rolle MD at 8:44 EST ,
== END | disposition home or self-care (01) ==
LOC: MTRAD 14:31
PROVIDERS: Referring Provider Urology; Visit Provider Urology
DX: N20.0 Calculus of kidney (principal)
CPT/HCPCS: 74018

== ENCOUNTER → 2022-08-09 | Outpatient (CLI) | payer MEDICARE, MEDICAID, SELFPAY ==
[2022-08-09 19:37] LABS: CRYSTALS, BODY FLUID See PATH REV; Source- Body Fluid SYNOVIAL
[2022-08-09 19:38] LABS: Body Fluid QC Type(s) BF2Q
[2022-08-10 14:56] LABS: Pathologist Review Reviewed
== END | disposition home or self-care (01) ==
PROVIDERS: Visit Provider Physician Assistant
DX: M11.262 Other chondrocalcinosis, left knee (principal); M17.12 Unilateral primary osteoarthritis, left knee
CPT/HCPCS: 89060

== ENCOUNTER → 2023-02-14 | Outpatient (CLI) | payer MEDICARE, MEDICAID, SELFPAY ==
[2023-02-14 10:57] LABS: Vitamin D,25 Hydroxy 33.1 ng/mL
[2023-02-14 11:06] LABS: ALB/GLOB Ratio 0.9 RATIO (0.9-2.4); AST(SGOT) 21 U/L (15-37); Alanine Aminotransfer ALT/SGPT 35 U/L (13-56); Albumin, Serum 3.5 g/dL (3.2-5.0); Alkaline Phosphatase 77 U/L (45-117); Anion Gap 7 (5-15); BUN 20 mg/dL (7-18); BUN/Creat Ratio 24.4 RATIO (10-20); Calcium,Total 9.4 mg/dL (8.5-10.1); Chloride 108 mmol/L (98-107); Cholesterol 214 mg/dL (200); Creatinine, Serum 0.82 mg/dL (0.55-1.02); EST Glomerular Filtration Rate 74 mL/min (>60); Est Glom Filt Rate - Afr Amer 90 mL/min (>60); Globulin 3.7 g/dL (2.2-4.2); Glucose 135 mg/dL (74-106); High Density Lipoprotein 45 mg/dL; Potassium 3.8 mmol/L (3.5-5.1); Protein, Total 7.2 g/dL (6.4-8.2); Sodium Level 143 mmol/L (136-145); Thyroid Stim Hormone (TSH) 4.77 uIU/mL (0.358-3.74); Triglycerides 190 mg/dL; Very Low Density Lipoprotein 38 mg/dL (5-40)
[2023-02-14 11:59] LABS: Microalbumin,Random Urine 23.3 mg/L (NO RANGE EST.); Microalbumin:Creatinine Ratio 18.6 mg/g CRE (<30 mg/g CRE)
== END | disposition home or self-care (01) ==
LOC: LAB 09:43
PROVIDERS: Referring Provider Nurse Practitioner Family; Visit Provider Nurse Practitioner Family
DX: E11.9 Type 2 diabetes mellitus without complications (principal); E55.9 Vitamin D deficiency, unspecified; E78.00 Pure hypercholesterolemia, unspecified
CPT/HCPCS: 36415; 80053; 80061; 82043; 82306; 82570; 84443

== ENCOUNTER → 2023-05-02 | Outpatient (CLI) | payer MEDICARE, MEDICAID, SELFPAY ==
[2023-05-02 12:19] LABS: Thyroid Stim Hormone (TSH) 1.84 uIU/mL (0.358-3.74)
== END | disposition home or self-care (01) ==
PROVIDERS: Referring Provider Nurse Practitioner Family; Visit Provider Nurse Practitioner Family
DX: E89.0 Postprocedural hypothyroidism (principal)
CPT/HCPCS: 36415; 84443

== ENCOUNTER → 2024-01-09 | Outpatient (CLI) | payer MEDICARE, MEDICAID, SELFPAY | END | disposition home or self-care (01) | LOC: US 13:02 | PROVIDERS: Referring Provider Nurse Practitioner Family; Visit Provider Nurse Practitioner Family | DX: E04.1 Nontoxic single thyroid nodule (principal) | CPT/HCPCS: 76536 ==

== ENCOUNTER → 2024-03-14 | Outpatient (CLI) | payer MEDICARE, MEDICAID, SELFPAY ==
[2024-03-14 17:00] LABS: Vitamin D,25 Hydroxy 30.5 ng/mL
[2024-03-14 17:06] LABS: AST(SGOT) 30 U/L (15-37); Alanine Aminotransfer ALT/SGPT 48 U/L (13-56); Alkaline Phosphatase 94 U/L (45-117); Anion Gap 5 (5-15); BUN 18 mg/dL (7-18); BUN/Creat Ratio 23.1 RATIO (10-20); Calcium,Total 10.3 mg/dL (8.5-10.1); Chloride 105 mmol/L (98-107); Cholesterol 225 mg/dL (200); Creatinine, Serum 0.78 mg/dL (0.55-1.02); EST Glomerular Filtration Rate 78 mL/min (>60); Est Glom Filt Rate - Afr Amer 95 mL/min (>60); Globulin 4.2 g/dL (2.2-4.2); Glucose 92 mg/dL (74-106); High Density Lipoprotein 47 mg/dL; Potassium 3.7 mmol/L (3.5-5.1); Protein, Total 8.2 g/dL (6.4-8.2); Sodium Level 138 mmol/L (136-145); Triglycerides 238 mg/dL; Very Low Density Lipoprotein 48 mg/dL (5-40)
[2024-03-14 17:19] LABS: Microalbumin,Random Urine 13.7 mg/L (NO RANGE EST.); Microalbumin:Creatinine Ratio 21.3 mg/g CRE (<30 mg/g CRE)
[2024-03-16 16:08] LABS: Anti-Thyroglobulin AB < 1.0 IU/mL (0.0-0.9); Thyroglobulin, Serum Qt. 18.8 ng/mL (1.5-38.5)
== END | disposition home or self-care (01) ==
PROVIDERS: Referring Provider Nurse Practitioner Family; Visit Provider Nurse Practitioner Family
DX: E04.1 Nontoxic single thyroid nodule (principal); E11.65 Type 2 diabetes mellitus with hyperglycemia; Z79.4 Long term (current) use of insulin; E55.9 Vitamin D deficiency, unspecified; R80.9 Proteinuria, unspecified
CPT/HCPCS: 36415; 80053; 80061; 82043; 82306; 82570; 84432; 84443; 86800

== ENCOUNTER → 2024-08-20 | Outpatient (CLI) | payer MEDICARE, MEDICAID, SELFPAY ==
--- NOTE | 2024-08-20 14:04 | RAD_ITS ---
PROCEDURE: FOOT MIN 3 VIEWS 08/20/2024 REASON FOR EXAM: PAIN No known injury. TECHNIQUE: FOOT MIN 3 VIEWS COMPARISON: None FINDINGS: Bones: No fracture seen. Joints: Normal alignment. Soft tissues: Soft tissues are unremarkable. Other: RAD/Foot min 3 Views IMPRESSION: NO ACUTE FRACTURE OR DISLOCATION. Reading Location: [id number]
--- NOTE | 2024-08-20 14:04 | RAD_ITS ---
PROCEDURE: ANKLE MIN 3 VIEWS 08/20/2024 REASON FOR EXAM: PAIN TECHNIQUE: ANKLE MIN 3 VIEWS COMPARISON: None. RAD/Ankle min 3 Views IMPRESSION: Mild calcification of the distal Achilles tendon is seen, without significant e nlargement, likely due to remote and/or chronic injury. Mild to moderate degenerative changes are seen of the calcaneocuboid articulati on. No ankle joint effusion is seen. Minimal degenerative changes are seen of the ankle joint, without significant joint narrowing. No evidence of ankle joint space narrowing. No acute fracture or dislocation is seen. Reading Location: [place] [id number]
== END | disposition home or self-care (01) ==
LOC: MTRAD 14:03
PROVIDERS: Referring Provider Physician Assistant; Visit Provider Physician Assistant
DX: M25.571 Pain in right ankle and joints of right foot (principal); M79.671 Pain in right foot
CPT/HCPCS: 73610; 73630

== ENCOUNTER → 2024-09-05 | Outpatient (CLI) | payer MEDICARE, SELFPAY ==
[2024-09-05 12:45] LABS: Hematocrit 38.8 % (37-47); Hemoglobin 13.0 g/dL (12.0-15.0); Immature Granulocytes Count 0.060 X10^3/uL (0.0-0.0); Mean Corp Hgb Conc 33.5 g/dL (32-36); Mean Corpuscular Volume 87.4 fL (81-99); Mean Platelet Vol. 9.5 fl (6.2-12.0); NRBC Flagged by Analyzer 0 % (0-5); Platelet Count 352 K/mm3 (150-450); RBC Distribution Width CV 13.0 % (11.6-14.6); RBC Distribution Width SD 41.0 fl (35.1-43.9); Red Blood Count 4.44 M/mm3 (4.2-5.4); White Blood Count 7.1 K/mm3 (4.4-11.0)
[2024-09-05 13:40] LABS: PTHIN 36 pg/mL (11-61)
[2024-09-05 13:50] LABS: AST(SGOT) 30 U/L (<=31); Alanine Aminotransfer ALT/SGPT 29 U/L (<=34); Albumin, Serum 4.0 g/dL (3.4-4.8); Alkaline Phosphatase 84 U/L (35-104); Anion Gap 11 (5-15); BUN 18 mg/dL (4-19); BUN/Creat Ratio 20.1 RATIO (10-20); Calcium,Total 10.1 mg/dL (7.6-11.0); Carbon Dioxide 23.5 mmol/L (21.0-32.0); Chloride 104 mmol/L (98-108); Cholesterol 204 mg/dL (<=200); Globulin 3.2 g/dL (2.2-4.2); Glucose 240 mg/dL (70-99); Low Density Lipoprotein Calc. 135 mg/dL; Potassium 4.6 mmol/L (3.3-5.1); Triglycerides 150 mg/dL; Very Low Density Lipoprotein 30 mg/dL (5-40); cholesterol:hdl ratio screen 5.22
== END | disposition home or self-care (01) ==
LOC: BIMLAB 10:18
PROVIDERS: Nurse Practitioner Family; Referring Provider Physician Assistant; Visit Provider Physician Assistant
DX: I10 Essential (primary) hypertension (principal); E78.5 Hyperlipidemia, unspecified; E83.52 Hypercalcemia
CPT/HCPCS: 36415; 80053; 80061; 83970; 85025

== ENCOUNTER → 2024-10-03 | Outpatient (CLI) | payer MEDICARE, MEDICAID, SELFPAY ==
[2024-10-03 15:37] LABS: Hematocrit 41.7 % (37-47); Hemoglobin 13.7 g/dL (12.0-15.0); Immature Granulocytes Count 0.070 X10^3/uL (0.0-0.0); Mean Corp Hgb Conc 32.9 g/dL (32-36); Mean Corpuscular Volume 89.3 fL (81-99); Mean Platelet Vol. 9.7 fl (6.2-12.0); NRBC Flagged by Analyzer 0 % (0-5); Platelet Count 339 K/mm3 (150-450); RBC Distribution Width CV 13.2 % (11.6-14.6); RBC Distribution Width SD 43.3 fl (35.1-43.9); Red Blood Count 4.67 M/mm3 (4.2-5.4); White Blood Count 10.7 K/mm3 (4.4-11.0)
[2024-10-03 16:01] LABS: CRP 30.10 mg/L (0.0-3.0); Uric Acid 5.8 mg/dL (2.6-6.0)
== END | disposition home or self-care (01) ==
LOC: BIMLAB 11:36
PROVIDERS: PCP Physician Assistant; Visit Provider Physician Assistant
DX: I10 Essential (primary) hypertension (principal); M25.571 Pain in right ankle and joints of right foot
CPT/HCPCS: 36415; 84550; 85025; 86140

== ENCOUNTER → 2024-11-14 | Outpatient (CLI) | payer MEDICARE, SELFPAY ==
--- NOTE | 2024-11-14 10:20 | MRI_ITS ---
PROCEDURE: LOWER EXT JOINT ONLY (ROUTINE) 11/14/2024 REASON FOR EXAM: PAIN Right ankle pain and swelling medial lateral 4 for months TECHNIQUE: Procedure Code: MRILEJ Modality: MR Procedure: LOWER EXT JOINT ONLY (ROUTINE) Multiplanar and multisequence images were obtained without IV contrast administration. COMPARISON: None FINDINGS: Bones *Tibia: Normal marrow signal. No edema. No fracture. *Fibula: Normal *Talus: Normal *Calcaneus: Calcaneal spur. Normal bone marrow signal. *Other tarsal bones: Mild degenerative changes through the tarsal bones. No fracture. No destructive process. Joints *Tibiotalar joint: Narrowing of the tibiotalar joint with subchondral sclerosis involving the tibial plafond. Loss of cartilage. *Subtalar joint: Mild degenerative changes. No effusion. Loss of cartilage. *Other joints: Narrowing of the talonavicular and calcaneal cuboidal joints. Ligaments *Lateral ligaments: *Anterior talofibular ligament (ATFL) - intact *Calcaneofibular ligament (CFL) - intact *Posterior talofibular ligament (PTFL) - intact *Medial ligaments (deltoid complex): *Superficial and deep fibers - anterior fibers demonstrate normal signal. Posterior fibers demonstrate mild thickening and increased T2 signal which may suggest a sprain. *Syndesmotic ligaments: *Anterior inferior tibiofibular ligament (AITFL) - mildly thickened consistent with sprain. No tear. *Posterior inferior tibiofibular ligament (PITFL) - mildly thickened consistent with sprain. No tear. Tendons *Medial tendons: Tibialis posterior, flexor digitorum longus, flexor hallucis longus - thickened appearance of the tibialis posterior tendon with tendinosis. No full-thickness tear. Normal appearance of the flexor hallucis longus and digitorum longus. *Lateral tendons: Peroneus longus, peroneus brevis - intact. No thickening. No abnormal signal. No tenosynovitis. *Anterior tendons: Tibialis anterior, extensor hallucis longus, extensor digitorum longus - normal in signal. No tear. *Achilles tendon: Intact / tendinopathy / tear / bursitis *Plantar fascia: Calcaneal spur. No evidence to suggest plantar fasciitis. Normal appearance of the plantar aponeurosis. Cartilage & Osteochondral Lesions *Small fluid collection with a suspected loose body measuring 8 x 5 by 14 millimeters in the sinus tarsi adjacent to the talocalcaneal interosseous ligament Soft Tissues *Diffuse soft tissue edema. No loose body. No acute fracture. *Neurovascular bundles - unremarkable. Abnormal fluid MRI/Lower Ext Joint Only (Routine) IMPRESSION: Small fluid collection with possible loose body in the sinus tarsi along the ta localcaneal interosseous ligament with possible sprain. Mild thickening of the posterior fibers of the deltoid complex medially. Mild thickening of the anterior and posterior inferior tibiofibular ligament fibers consistent with mild sprain. No tear. Sprain of the tibialis posterior tendon. Partial tear of the peroneal longus tendon. Diffuse soft tissue edema. Mild degenerative changes of the ankle. Normal extensor tendons. Reading Location: [id number]
== END | disposition home or self-care (01) ==
LOC: OPMRI 10:19
PROVIDERS: PCP Physician Assistant; Referring Provider Physician Assistant; Visit Provider Physician Assistant
DX: M25.571 Pain in right ankle and joints of right foot (principal)
CPT/HCPCS: 73721

== ENCOUNTER → 2025-01-28 | Outpatient (CLI) | payer MEDICARE, SELFPAY ==
[2025-01-28 14:51] LABS: Mucous, Urine 0 SEEN /hpf (<or=2+); Red Blood Cells-Urine 0 SEEN /hpf (0-5)
[2025-01-28 15:47] LABS: Color, Urine Yellow (Yellow); Glucose, Dipstick Normal (Normal); Ketone-Dipstick 5 mg/dl (Negative); Leukocyte Esterase-Dipstick Negative /ul (Negative); Nitrite-Dipstick Negative (Negative); Occult Blood-Urine Negative /ul (Negative); Protein-Dipstick 15 mg/dl (Negative); Specific Gravity, Urine 1.020 (1.002-1.030); Urine Bilirubin Dipstick Negative (Negative)
[2025-01-28 16:10] LABS: Squamous Epithelial Cells - UA 0-5 SEEN /hpf (5-10)
== END | disposition home or self-care (01) ==
LOC: LAB 14:47
PROVIDERS: PCP Physician Assistant; Referring Provider Nurse Practitioner Family; Visit Provider Nurse Practitioner Family
DX: R35.0 Frequency of micturition (principal)
CPT/HCPCS: 81001; 87077; 87086; 87088; 87186